=== PATIENT | male | born 1970 | race Caucasian/White ===

== ENCOUNTER 2019-05-03 10:27 | Emergency (ER) | payer MEDICAID, SELFPAY ==
[2019-05-03 10:34] VITALS: BP 121/92; PULSE 75; RESP 16; TEMP 36.7; O2SAT 93; BMI 28.5
--- NOTE | 2019-05-03 10:41 | ED_ITS ---
Entered by Mayo Hunter, acting as scribe for Ck Andres DO HPI - Neuro Symptoms/Deficit General: Chief Complaint: Neuro Symptoms/Deficit Stated Complaint: NUMBNESS LEFT SIDE Time Seen by Provider: 05/03/19 10:44 History of Present Illness: HPI Narrative: 48 yo male presents with left sided weakness. Pt has had this for a couple of days. Pt states that he has blurred vision. Significant other states that she feels like pts speech is a little slurred and raspy. Pt states that he vomited blood 2 days ago, has diarrhea, his nose has bled. Pt states that he has burning in his groin. Pt states that he was working yesterday, he fell due to feeling off balance and his blurred vision. Onset (ago): day(s) (4-5) Location: speech and left leg Severity: moderate Quality: weak and intermittent Relieving factors: none Exacerbating factors: none Associated symptoms: Reports cough, short of breath and weakness; Deny chest pain, malaise, nausea or vomiting Review of Systems Const: Denies: fever, chills, body aches, change in appetite, fatigue or malaise ENMT: Denies: throat pain, ear pain, nasal discharge or nasal congestion Card: Denies: chest pain, edema, shortness of breath on exertion or shortness of breath when lying down Resp: Denies: shortness of breath, productive cough or non-productive cough GI: Denies: abdominal pain, nausea, vomiting, vomiting blood, coffee grounds in vomit, diarrhea, constipation, bloating, blood in stool or black tarry stool : Denies: flank pain, painful urination, urinary frequency or urinary urgency Skin/Breast: Denies: rash or itching [facility] ED PFSH: Medical History (Updated 05/03/19 @ 13:43 by Ck Andres DO) Hypertension Social History Smoking and tobacco status: current every day smoker Physical Exam Const: COMMON NORMALS: average body habitus, oriented x3 and alert GENERAL APPEARANCE: cooperative, comfortable, well kempt and well developed NUTRITIONAL APPEARANCE: not obese ORIENTATION/CONSCIOUSNESS: Yes awake, Yes oriented to person and Yes oriented to place HENMT: COMMON NORMALS: normocephalic, head/scalp atraumatic, EAC's normal, TM's normal bilaterally, external nose normal, moist oral mucous membranes and oropharynx normal HEAD & SCALP: normocephalic and atraumatic NOSE: external nose normal EXTERNAL AUDITORY CANAL: EAC's normal TYMPANIC MEMBRANE: TM's normal bilaterally MOUTH: oral and palatal mucosa normal, lip normal and tongue normal THROAT: posterior oropharynx normal and tonsils normal Eye: COMMON NORMALS: PERRL, EOMs intact bilaterally, conjunctivae normal and no scleral icterus CONJUNCTIVA: Yes conjunctivae normal PUPIL: Yes PERRL Neck/C-Spine: COMMON NORMALS: full ROM, no lymphadenopathy, supple, no meningeal signs and thyroid normal THYROID: thyroid normal and asymmetrical Lymph: LYMPHATIC: no lymphadenopathy noted Resp: COMMON NORMALS: normal respiratory effort, no retractions, no use of accessory muscles and clear to auscultation bilaterally AUSCULTATION: clear to auscultation bilaterally Cardio: COMMON NORMALS: regular rate and regular rhythm RATE: regular rate RHYTHM: regular rhythm HEART SOUNDS: no murmurs GI: COMMON NORMALS: normal to inspection, nondistended, normoactive bowel sounds, soft to palpation and no hepatosplenomegaly PALPATION: Yes soft and Yes no hepatosplenomegaly : COMMON NORMALS: Yes no CVA tenderness BLADDER/KIDNEY EXAM: Yes no CVA tenderness Back/Pelvis: COMMON NORMALS: no CVA tenderness LUMBAR SPINE/LOWER BACK: Yes normal to inspection Extremity: COMMON NORMALS: no clubbing, cyanosis or edema, no calf tenderness and no pedal edema Neuro: COMMON NORMALS: oriented x3 SENSORIUM/ORIENTATION: Yes alert, Yes o riented to person and Yes oriented to place MENINGEAL SIGNS: Yes no meningeal signs Psych: APPEARANCE: Yes well kempt Skin: COMMON NORMALS: no rashes or lesions noted and skin turgor normal GENERAL SKIN EXAM: no rashes or lesions noted and turgor normal Course ED course: Neurologically patient is well there is no focal neurologic deficits he has had this for several days his CT of his head is negative. But going to put him on aspirin regimen baby aspirin daily and recheck with neurology in follow-up. If he has any worsening or changes or recurrent symptoms recheck in the ER. Vital Signs: Vital signs: Vital Signs Temperature 98.1 F 05/03/19 10:34 Pulse Rate 89 05/03/19 14:15 Respiratory Rate 20 H 05/03/19 14:15 Blood Pressure 148/75 05/03/19 14:15 Pulse Oximetry 99 05/03/19 14:15 MDM - Neuro Symptoms/Deficit Lab Data: Labs: Lab Results 05/03/19 05/03/19 05/03/19 Range/Units 10:15 10:15 10:15 WBC 7.7 (4.0-10.0) 10^3/ uL RBC 4.62 (4.1-5.3) 10^6/u L Hgb 14.3 (11.7-16.6) g/dL Hct 40.2 L (42.0-52.0) % MCV 87.0 (80-94) fL MCH 31.0 (28.0-34.0) pg MCHC 35.6 (30.0-36.0) g/dL RDW 13.5 (12.1-15.1) % Plt Count 119 L (130-400) 10^3/c mm MPV 10.9 H (7.4-10.4) fL Neut % (Auto) 67.1 % Lymph % (Auto) 20.5 % Ada % (Auto) 9.4 % Eos % (Auto) 2.3 % Baso % (Auto) 0.4 % Neut # (Auto) 5.1 (1.8-7.7) 10^3/u L Lymph # (Auto) 1.6 (0.8-4.8) 10^3/u L Ada # (Auto) 0.7 (0.2-0.9) 10^3/u L Eos # (Auto) 0.2 (0.0-0.8) 10^3/u L Baso # (Auto) 0.0 (0.0-0.1) 10^3/u L Nucleated RBC % (a uto) 0 % Nucleated RBCs # 0.0 /100WBC Sodium 136 (136-145) mmol/L Potassium 3.4 L (3.5-5.1) mmol/L Chloride 97 L (98-107) mmol/L Carbon Dioxide 23 (22-29) mmol/L Anion Gap 19.4 H (5-19) BUN 18 (6-20) mg/dL Creatinine 1.1 (0.7-1.2) mg/dL GFR Calculation 71.4 L (90-130) mL/min Glucose 120 H (65-115) mg/dL Calcium 9.3 (8.5-10.5) mg/dL Total Bilirubin 0.5 (0.15-1.2) mg/dL AST 82 H (0-40) U/L ALT 97 H (0-41) U/L Alkaline Phosphata se 97 (40-130) IU/L Troponin T Baselin e 12 (0-15) ng/mL Troponin T 120 Min agdaagux (0-15) ng/mL Total Protein 7.5 (6.6-8.7) g/dL Albumin 4.5 (3.5-5.2) g/dL Globulin 3.0 (1.3-4.6) g/dL Lipase 19 (13-60) U/L Urine Color (Yellow) Urine Appearance (CLEAR) Urine pH (5-7) Ur Specific Gravit y (1.005-1.030) Urine Protein (Negative) Urine Glucose (UA) (Normal) Urine Ketones (Negative) Urine Blood (Negative) Urine Nitrate (Negative) Urine Bilirubin (NEGATIVE) Urine Urobilinogen (Negative) mg/dL Ur Leukocyte Eliza ase (Negative) Urine Opiates Scre en (Negative) ng/mL Ur Barbiturates Sc reen (Negative) ng/mL Ur Phencyclidine S crn (Negative) ng/mL Ur Amphetamines Sc reen (Negative) ng/mL U Benzodiazepines Scrn (Negative) ng/mL Urine Cocaine Scre en (Negative) ng/mL U Marijuana (THC) Screen (Negative) ng/mL 05/03/19 05/03/19 05/03/19 Range/Units 11:25 11:25 12:36 WBC (4.0-10.0) 10^3/ uL RBC (4.1-5.3) 10^6/u L Hgb (11.7-16.6) g/dL Hct (42.0-52.0) % MCV (80-94) fL MCH (28.0-34.0) pg MCHC (30.0-36.0) g/dL RDW (12.1-15.1) % Plt Count (130-400) 10^3/c mm MPV (7.4-10.4) fL Neut % (Auto) % Lymph % (Auto) % Ada % (Auto) % Eos % (Auto) % Baso % (Auto) % Neut # (Auto) (1.8-7.7) 10^3/u L Lymph # (Auto) (0.8-4.8) 10^3/u L Ada # (Auto) (0.2-0.9) 10^3/u L Eos # (Auto) (0.0-0.8) 10^3/u L Baso # (Auto) (0.0-0.1) 10^3/u L Nucleated RBC % (a uto) % Nucleated RBCs # /100WBC Sodium (136-145) mmol/L Potassium (3.5-5.1) mmol/L Chloride (98-107) mmol/L Carbon Dioxide (22-29) mmol/L Anion Gap (5-19) BUN (6-20) mg/dL Creatinine (0.7-1.2) mg/dL GFR Calculation (90-130) mL/min Glucose (65-115) mg/dL Calcium (8.5-10.5) mg/dL Total Bilirubin (0.15-1.2) mg/dL AST (0-40) U/L ALT (0-41) U/L Alkaline Phosphata se (40-130) IU/L Troponin T Baselin e (0-15) ng/mL Troponin T 120 Min agdaagux 10.05 (0-15) ng/mL Total Protein (6.6-8.7) g/dL Albumin (3.5-5.2) g/dL Globulin (1.3-4.6) g/dL Lipase (13-60) U/L Urine Color Yellow (Yellow) Urine Appearance Clear (CLEAR) Urine pH 7.0 (5-7) Ur Specific Gravit y 1.010 (1.005-1.030) Urine Protein Neg (Negative) Urine Glucose (UA) Norm (Normal) Urine Ketones Negative (Negative) Urine Blood Neg (Negative) Urine Nitrate Negative (Negative) Urine Bilirubin Neg (NEGATIVE) Urine Urobilinogen Norm (Negative) mg/dL Ur Leukocyte Eliza ase Negative (Negative) Urine Opiates Scre en Negative (Negative) ng/mL Ur Barbiturates Sc reen Negative (Negative) ng/mL Ur Phencyclidine S crn Negative (Negative) ng/mL Ur Amphetamines Sc reen Negative (Negative) ng/mL U Benzodiazepines Scrn Negative (Negative) ng/mL Urine Cocaine Scre en Negative (Negative) ng/mL U Marijuana (THC) Screen Negative (Negative) ng/mL Discharge Plan Discharge Patient Disposition: Home, Self-Care Clinical Impression: Transient cerebral ischemia Condition: Stable Prescriptions: New Adult Aspirin Regimen 81 mg tablet,delayed release (DR/EC) 81 mg PO DAILY Qty: 30 RF: 0 No Action metoprolol succinate 50 mg Tablet Extended Release 24 Hr 50 mg PO DAILY RF: 0 Mobic 15 mg Tablet 15 mg PO DAILY RF: 0 naltrexone 50 mg Tablet 50 mg PO DAILY RF: 0 lisinopril 20 mg Tablet 20 mg PO DAILY RF: 0 trazodone 100 mg Tablet 100 mg PO BEDTIME PRN (Reason: Sleep) RF: 0 ibuprofen 200 mg Tablet 600 mg PO DAILY PRN (Reason: Pain) RF: 0 gabapentin 300 mg Capsule 300 mg PO BID RF: 0 Prozac 20 mg Capsule 60 mg PO DAILY RF: 0 loratadine 10 mg Tablet 10 mg PO DAILY RF: 0 Discharge Orders: Discharge Order (Routine); Ordered 05/03/19 Ordered By: Ck Andres Referrals: Keila Greenwood MD [Physician] - (Follow-up on possible TIA) Discharge Diet: Usual diet Discharge Activity: Resume usual activity Activity Restrictions/Additional Instructions: Case management will call with appointment for follow-up with Dr. Greenwood continue daily baby aspirin. Discharge Date/Time: 05/03/19 14:17 Coding Level of Care Code ED Speech Language Therapist for Chg Fwd Exam Comprehensive The documentation recorded by the Dale caraballo Kialy, accurately reflects the service I personally performed and the decisions made by Mckenna estrada Curtis L, DO May 03, 2019 10:27
[2019-05-03 10:43] VITALS: O2SAT 98
--- NOTE | 2019-05-03 11:05 | CT_ITS ---
WS: [id number] CT HEAD NONCONTRAST HISTORY: vision changes, slurred speech TECHNIQUE: Contiguous axial imaging performed through the brain in 2.5 mm imaging. Bone and soft tiss ue windows. Sagittal and coronal reformats reviewed. All CT scans at [facility] use at le ast one of these dose optimization techniques: automated exposure control; mA and/or kV adjustment pe r patient size (includes targeted exams where dose is matched to clinical indication); or iterative r econstruction. DLP: 865.96 mGy.cm COMPARISON: None available. No acute intracranial hemorrhage, midline shift or mass effect. No atrophy or prior infarcts or herniation. Mild chronic microvascular ischemic disease. No loss of das-white matter differentiation. Ventricles: Normal size with no hydrocephalus. No inferior displacement of the cerebellar tonsils. Paranasal sinuses: Very mild mucoperiosteal thickening throughout the sinuses. Mastoid air cells: Well pneumatized. Calvarium and scalp: Skull fracture. Small amount of scalp edema over the LEFT parietal bone. CT/CT head wo con* [id number] IMPRESSION: 1. No acute intracranial hemorrhage or edema. 2. Small amount scalp edema over the LEFT parietal bone. No fracture. 3. 1 mild chronic sinusitis.
[2019-05-03] MEDS: sodium chloride 0.9% 1,000 ML 999 ML IV (11:19)
[2019-05-03 11:22] LABS: Basophils % 0.4 %; Eosinophils # 0.2 10^3/uL (0.0-0.8); Eosinophils % 2.3 %; Hematocrit 40.2 % (42.0-52.0); Hemoglobin 14.3 g/dL (11.7-16.6); Lymphocytes # 1.6 10^3/uL (0.8-4.8); Lymphocytes % 20.5 %; Mean Corpuscular HGB Conc 35.6 g/dL (30.0-36.0); Mean Platelet Volume 10.9 fL (7.4-10.4); Monocytes # 0.7 10^3/uL (0.2-0.9); Monocytes % 9.4 %; Neutrophils # 5.1 10^3/uL (1.8-7.7); Neutrophils % 67.1 %; Nucleated Red Blood Cells % 0 %; Platelet Count 119 10^3/cmm (130-400); Red Blood Count 4.62 10^6/uL (4.1-5.3); Red Cell Distribution Width 13.5 % (12.1-15.1); White Blood Count 7.7 10^3/uL (4.0-10.0)
[2019-05-03 11:32] LABS: Add Urine Microscopic? NO
[2019-05-03 11:37] LABS: Bilirubin Urine Neg (NEGATIVE); Blood Urine Neg (Negative); Glucose Urine UA Norm (Normal); Ketones Urine Negative (Negative); Leukocyte Esterase Urine Negative (Negative); Nitrate Urine Negative (Negative); Protein Urine Neg (Negative); Urine Appearance Clear (CLEAR); Urine Color Yellow (Yellow); Urobilinogen Urine Norm (Negative)
[2019-05-03 11:40] LABS: Alanine Aminotransferase 97 U/L (0-41); Albumin Level 4.5 g/dL (3.5-5.2); Alkaline Phosphatase 97 IU/L (40-130); Anion Gap 19.4 (5-19); Aspartate Amino Transferase 82 U/L (0-40); Blood Urea Nitrogen 18 mg/dL (6-20); Calcium 9.3 mg/dL (8.5-10.5); Carbon Dioxide 23 mmol/L (22-29); Chloride 97 mmol/L (98-107); Creatinine Clr Calc Pharmacy 98.3443; Glomerular Filtration Rate 71.4 mL/min (90-130); Glucose 120 mg/dL (65-115); Lipase 19 U/L (13-60); Potassium 3.4 mmol/L (3.5-5.1); Sodium 136 mmol/L (136-145); Total Bilirubin 0.5 mg/dL (0.15-1.2); Total Protein 7.5 g/dL (6.6-8.7)
--- NOTE | 2019-05-03 12:38 | ECG_ITS ---
Measurements Intervals [place] Rate: 68 P: 49 AL: 163 QRS: 43 QRSD: 92 T: 42 QT: 423 QTc: 452 SINUS RHYTHM Compared to ECG 09/06/2018 17:07:09 No significant changes Electronically Signed On 05-03-2019 15:18:39 PRODUCE PRODUCTION TEAM MEMBER by Amanuel Montaño M.D. [email or web address]
[2019-05-03 13:20] LABS: Troponin 5 2HR 10.05 ng/mL (0-15)
[2019-05-03 13:20] LABS: Troponin(5th) Baseline 12 ng/mL (0-15)
[2019-05-03 13:36] LABS: Amphetamines Screen Urine Negative (Negative); Barbiturates Screen Urine Negative (Negative); Benzodiazepines Screen Urine Negative (Negative); Cocaine Screen Urine Negative (Negative); Opiate Screen Urine Negative (Negative); PCP Screen Urine Negative (Negative); THC Screen Urine Negative (Negative)
[2019-05-03 14:15] VITALS: BP 148/75; PULSE 89; RESP 20; O2SAT 99
--- NOTE | 2019-05-05 09:20 | DCPLANNER ---
district service manager had message to schedule a follow up appointment for patient with Dr. Greenwood. district service manager called the office of Dr. Greenwood, spoke with Charleen, a follow up appointment was scheduled for Wednesday, May 08, 2019 at 11:[address] Greenwood. district service manager called [phone] and left a voicemail for patient to return case specialist phone call, then protective services case worker called [phone] and left a message with a friend to have patient return case specialist phone call for appointment information.
--- NOTE | 2019-05-09 14:58 | DCPLANNER ---
Appointment was rescheduled.
== END 2019-05-03 14:17 | disposition home or self-care (01) ==
PROVIDERS: Emergency Provider Family Medicine; Family Provider Family Medicine; PCP Family Medicine
DX: G45.9 Transient cerebral ischemic attack, unspecified (principal); I10 Essential (primary) hypertension; F17.200 Nicotine dependence, unspecified, uncomplicated
CPT/HCPCS: 36415; 70450; 80053; 80307; 81003; 83690; 84484; 85025; 93005; 96360; 99283; 99284; J7030

== ENCOUNTER → 2019-06-26 10:12 | Outpatient (BNVA) | payer MEDICAID, SELFPAY | PROVIDERS: Family Provider Family Medicine; PCP Family Medicine; Visit Provider Family Medicine | DX: J44.9 Chronic obstructive pulmonary disease, unspecified (principal) | CPT/HCPCS: 80053; 80061; 83036; 85025 ==

== ENCOUNTER 2020-09-05 06:13 | Emergency (ER) | payer MEDICAID, SELFPAY ==
[2020-09-05 07:40] VITALS: BP 148/98; PULSE 76; RESP 16; TEMP 36.3; O2SAT 93; BMI 26.4
[2020-09-05 07:46] VITALS: O2SAT 94
--- NOTE | 2020-09-05 07:52 | ED_ITS ---
HPI - Recheck/Abnormal Lab/Rx General: Chief Complaint: Recheck/Abnormal Lab/Rx Stated Complaint: sores all over Source: patient Mode of arrival: ambulatory Limitations: no limitations History of Present Illness: HPI narrative: Patient back today for antibiotics that he did not receive yesterday when seen in the emergency room for the same complaint. Patient has sores to his hands and leg. complaint: wound re-check Initial visit (ago): day(s) (Several) Initial visit for: other (Ulcers to hands and right leg) Returns today for: wound recheck Symptoms since prior visit: no new symptoms Associated symptoms: none Review of Systems Const: Denies: fever(s) or chills Eyes: Denies: change in vision ENMT: Denies: throat pain Card: Denies: chest pain or palpitations Resp: Denies: dyspnea or wheezing GI: Denies: abdominal pain, nausea or vomiting : Denies: flank pain Musc: Denies: neck pain or back pain Skin/Breast: Reports: rash and sores; Denies: pruritus Neuro: Denies: headache(s) or numbness in extremities Psych: Denies: anxiety Jagdish/Lymph: Denies: enlarged lymph nodes PFSH ED PFSH: Medical History LEANDRO (generalized anxiety disorder) History of alcoholism Hypertension Insomnia Problems related to lack of adequate sleep Seasonal allergies Surgical History H/O hernia repair Family History Family/Other Hypertension Mother Muscular dystrophy Father Myocardial infarct Social History Smoking and tobacco status: current every day smoker cigarettes Packs smoked per day: 1 Quit status (tobacco): not considering quitting Second hand smoke exposure: Yes Alcohol intake: current Alcohol intake frequency: 3 or more drinks per day Desire information about substance/drug rehabilitation?: No Caregiver/support person: Yes Lives independently: No Household members: spouse History of recent travel: No Current gender identity: Male Physical Exam Const: COMMON NORMALS: no acute distress, patient oriented x3, no limitations and well nourished GENERAL APPEARANCE: cooperative HENMT: COMMON NORMALS: normocephalic and atraumatic HEAD & SCALP: normocephalic and atraumatic FACE & SINUS: normal facial exam Eye: COMMON NORMALS: EOMs intact bilaterally Neck/C-Spine: COMMON NORMALS: full ROM, no lymphadenopathy, supple and no meningeal signs GENERAL: Yes normal visual inspection Lymph: LYMPHATIC: no lymphadenopathy noted Chest: COMMONS NORMALS: normal inspection of the chest and normal palpation of entire chest wall CHEST: No Ecchymosis present and No rash Resp: COMMON NORMALS: normal respiratory effort, No retractions and clear to auscultation bilaterally EFFORT & INSPECTION: No respiratory distress AUSCULTATION: clear to auscultation bilaterally Cardio: COMMON NORMALS: regular rate, regular rhythm and Peripheral pulses 2+ throughout JUGULAR VENOUS DISTENTION: no JVD RATE: regular rate RHYTHM: regular rhythm PERIPHERAL PULSES: Peripheral pulses 2+ throughout GI: COMMON NORMALS: Normal to inspection, nondistended, normoactive bowel sounds present and non-tender : COMMON NORMALS: Yes no CVA tenderness BLADDER/KIDNEY EXAM: Yes no CVA tenderness Back/Pelvis: COMMON NORMALS: no CVA tenderness Extremity: COMMON NORMALS: normal to inspection, full ROM and capillary refill normal Neuro: COMMON NORMALS: patient oriented x3, CN's II-XII intact bilaterally, no focal motor deficits and no sensory deficits noted MENINGEAL SIGNS: Yes no meningeal signs Psych: COMMON NORMALS: mental status grossly normal and Normal thought process present THOUGHT PROCESS: Normal thought process present Skin: COMMON NORMALS: turgor normal GENERAL SKIN EXAM: turgor normal and other (Patient has multiple superficial ulcers to both hands and right lower leg ) Course Vital Signs: Vital signs: Vital Signs Temperature 97.3 F L 09/05/20 07:40 Pulse Rate 76 09/05/20 07:40 Respiratory Rate 16 09/05/20 07:40 Blood Pressure 148/98 09/05/20 07:40 Pulse Oximetry 94 09/05/20 07:46 MDM - Recheck/Abnormal Lab/Rx MDM Narrative: Medical decision making narrative: Patient left yesterday prior to receiving antibiotic injection and receiving prescriptions for folliculitis. Patient is agreeable to antibiotic injection now. Discharge Plan Discharge Patient Disposition: Home Clinical Impression: Folliculitis Condition: Stable Prescriptions: New cephalexin 500 mg capsule 500 mg PO QID 10 Days Qty: 40 RF: 0 Bactrim DS 800-160 mg tablet 1 tab PO BID 10 Days Qty: 20 RF: 0 No Action lisinopril 20 mg tablet 20 mg PO DAILY 30 Days Qty: 30 RF: 5 metoprolol succinate 50 mg tablet extended release 24 hr 50 mg PO DAILY 30 Days Qty: 30 RF: 5 loratadine 10 mg tablet 10 mg PO DAILY 30 Days Qty: 30 RF: 5 diclofenac sodium 50 mg tablet,delayed release (DR/EC) 50 mg PO Q12H PRN (Reason: pain) 30 Days Qty: 60 RF: 5 fluoxetine 40 mg capsule 40 mg PO DAILY 30 Days Qty: 30 RF: 5 mirtazapine 15 mg tablet 15 mg PO .qhs 30 Days Qty: 30 RF: 3 Adult Aspirin Regimen 81 mg tablet,delayed release (DR/EC) 81 mg PO DAILY Qty: 30 RF: 0 cephalexin 500 mg capsule 500 mg PO QID 10 Days Qty: 40 RF: 0 mupirocin 2 % ointment 1 applic topical TID 14 Days Qty: 15 RF: 1 Discharge Orders: Discharge ED (Routine); Ordered 09/05/20 Ordered By: Richardson Summers Discharge Activity: Resume usual activity Activity Restrictions/Additional Instructions: Start Bactrim and cephalexin antibiotics tomorrow morning. Follow-up with primary care doctor next week. Coding Level of Care Code ED Developer Architect for Jia Farley
[2020-09-05] MEDS: cefTRIAXone 1,000 mg SDV 1000 MG IM (08:15)
== END 2020-09-05 08:19 | disposition home or self-care (01) ==
PROVIDERS: Emergency Provider Family Medicine
DX: L73.9 Follicular disorder, unspecified (principal); Z79.82 Long term (current) use of aspirin; I10 Essential (primary) hypertension; F17.210 Nicotine dependence, cigarettes, uncomplicated
CPT/HCPCS: 96372; 99283; J0696

== ENCOUNTER → 2020-12-19 11:27 | Outpatient (BNVA) | payer MEDICAID, SELFPAY | PROVIDERS: PCP Family Medicine; Visit Provider Family Medicine | DX: I10 Essential (primary) hypertension (principal); J30.2 Other seasonal allergic rhinitis; M17.11 Unilateral primary osteoarthritis, right knee; Z13.220 Encounter for screening for lipoid disorders; Z13.6 Encounter for screening for cardiovascular disorders; Z23 Encounter for immunization; H65.191 Other acute nonsuppurative otitis media, right ear | CPT/HCPCS: 80053; 80061 ==

== ENCOUNTER 2021-06-28 14:49 | Inpatient (IN) | payer MEDICAID, SELFPAY ==
[2021-06-28 14:59] VITALS: BP 167/97; PULSE 97; RESP 17; O2SAT 95
--- NOTE | 2021-06-28 15:00 | ED_ITS ---
HPI - General Adult General: Chief complaint: General Medical Stated complaint: ETOH/ HYPERTENSION Time Seen by Provider: 06/28/21 14:52 Source: patient Mode of arrival: EMS Limitations: altered mental status (Chronic intoxication) History of Present Illness: 51-year-old male who presents emergency room via EMS concerned about his blood pressure. He has been drinking for the last week. He has not been taking any of his medications blood pressure is elevated he is not suicidal or homicidal. Patient readily admits he drinks heavily and expresses no desire to change that plan. He states has been drinking beer almost continually for a week. He had told the charge nurse that he wanted be admitted to the [facility] because of his drinking he did not make any such a comment to me. He is merely concerned with his blood pressure and fascinated by how high his blood alcohol might be requesting several times that we check it so he would know. Patient denies any chest pain denies any shortness of breath. He has had difficulty with vision to gait and balance 50 attributes most of that to his blood pressure and rigorous drinking schedule. MD complaint: Chronic intoxication Onset (ago): week(s) Location: head Severity: similar to prior episodes Quality: aching Pain Consistency: intermittent Relieving factors: none Exacerbating factors: other (Alcohol consumption) Associated symptoms: Reports confusion (Due to intoxication), decreased appetit e, headache(s), malaise, nausea and weakness; Deny chest pain, cough, diaphoresis, dyspnea, fevers/chills, rash, palpitations, seizures, short of breath, syncope or vomiting Treatments prior to arrival: none Review of Systems Const: Reports: fatigue and malaise; Denies: fever(s), chills or diaphoresis ENMT: Denies: throat pain, ear or mastoid pain, nasal discharge or nasal congestion Card: Denies: chest pain, palpitations or syncope Resp: Denies: dyspnea GI: Reports: nausea; Denies: vomiting : Denies: flank pain, dysuria, urinary frequency or urinary urgency Skin/Breast: Denies: rash Neuro: Reports: headache(s) and confusion (Due to intoxication) [facility] ED PFSH: Medical History LEANDRO (generalized anxiety disorder) History of alcoholism Hypertension Insomnia Problems related to lack of adequate sleep Psychiatric care Seasonal allergies Surgical History H/O hernia repair Family History Family/Other Hypertension Mother Muscular dystrophy Father Myocardial infarct Social History Smoking and tobacco status: current every day smoker cigarettes Packs smoked per day: 1 Quit status (tobacco): not considering quitting Second hand smoke exposure: Yes Alcohol intake: current Alcohol intake frequency: 3 or more drinks per day Desire information about substance/drug rehabilitation?: No Caregiver/support person: Yes Lives independently: No Household members: spouse History of recent travel: No Current gender identity: Male Physical Exam Const: GENERAL APPEARANCE: disheveled and other (Obviously intoxicated) ORIENTATION/CONSCIOUSNESS: Yes awake, Yes oriented to person, Yes oriented to place and Yes oriented to time HENMT: COMMON NORMALS: normocephalic, atraumatic and hearing grossly normal bilaterally HEAD & SCALP: normocephalic and atraumatic Neck/C-Spine: COMMON NORMALS: no JVD Resp: COMMON NORMALS: normal respiratory effort, No retractions, No use of accessory muscles and clear to auscultation bilaterally AUSCULTATION: clear to auscultation bilaterally Cardio: COMMON NORMALS: no JVD, regular rate, regular rhythm and No murmurs present (Cardio) RATE: regular rate RHYTHM: regular rhythm GI: COMMON NORMALS: Soft to palpation and No hepatosplenomegaly present AUSCULTATION: Yes normoactive bowel sounds PALPATION: Yes Soft to palpation, No Tenderness to palpation present (GI), No Guarding due to palpation present (GI) and Yes No hepatosplenomegaly present Extremity: COMMON NORMALS: normal to inspection, capillary refill normal, no clubbing, cyanosis or edema, no calf tenderness and no pedal edema Neuro: SENSORIUM/ORIENTATION: Yes oriented to person, Yes oriented to place and Yes oriented to time Skin: COMMON NORMALS: no rashes or lesions noted GENERAL SKIN EXAM: no rashes or lesions noted Course Vital Signs: Vital signs: Vital Signs Temperature 97.5 F L 07/01/21 07:37 Pulse Rate 61 07/01/21 07:37 Respiratory Rate 18 07/01/21 07:37 Blood Pressure 177/108 07/01/21 07:37 Pulse Oximetry 98 07/01/21 07:37 MDM - General Adult Medical Decision Making Patient was going to be discharged and at the time of discharge stated that he was suicidal. Now he is wanting to go to the [facility] because of suicidal ideation. Discussed with Dr. Granados he will accept the patient orders written. Medical Records I reviewed the patient's medical records. Lab Data I reviewed the patient's lab results. : 06/28/21 15:28 06/29/21 07:08 Laboratory Results WBC 4.8 10^3/uL (4.0-10.0) 06/28/21 15: RBC 4.76 10^6/uL (4.1-5.3) 06/28/21 15: Hgb 15.1 g/dL (11.7-16.6) 06/28/21 15: Hct 42.6 % (42.0-52.0) 06/28/21 15: MCV 89.5 fl (80-94) 06/28/21 15: MCH 31.7 pg (28.0-34.0) 06/28/21 15: MCHC 35.4 g/dL (30.0-36.0) 06/28/21 15: RDW 13.0 % (12.1-15.1) 06/28/21 15:28 Plt Count 196 10^3/cmm (130-400) 06/28/21 15:28 MPV 9.7 fL (7.4-10.4) 06/28/21 15: Neut % (Auto) 55.8 % 06/28/21 15:28 Lymph % (Auto) 31.2 % 06/28/21 15:28 [place] % (Auto) 10.5 % 06/28/21: Eos % (Auto) 0.6 % 06/28/21 15: Baso % (Auto) 1.7 % 06/28/21 15:28 Neut # (Auto) 2.67 10^3/uL (1.8-7.7) 06/28/21 15:28 Lymph # (Auto) 1.5 10^3/uL (0.8-4.8) 06/28/21 15:28 [place] # (Auto) 0.5 10^3/uL (0.2-0.9) 06/28/21 15: Eos # (Auto) 0.0 10^3/uL (0.0-0.8) 06/28/21 15: Baso # (Auto) 0.1 10^3/uL (0.0-0.1) 06/28/21 15: Nucleated RBC % (auto) 0 % 06/28/21 15: Nucleated RBCs # 0.0 /100WBC 06/28/21 15: Sodium 125 mmol/L (136-145) L 06/28/21 15: Potassium 3.9 mmol/L (3.5-5.1) 06/28/21: Chloride 86 mmol/L (98-107) L 06/28/21 15: Carbon Dioxide 22 mmol/L (22-29) 06/28/21 15: Anion Gap 20.9 (5-19) H 06/28/21 15: BUN 6 mg/dL (6-20) 06/28/21 15: Creatinine 0.6 mg/dL (0.7-1.2) L 06/28/21 15: GFR Calculation 142.0 mL/min (90-130) H 06/28/21 15: Glucose 100 mg/dL (65-115) 06/28/21 15: Calculated Osmolality 258 mOsm/kg (285-295) L 06/28/21: Calcium 7.8 mg/dL (8.5-10.5) L 06/28/21 15: Total Bilirubin 0.4 mg/dL (0.15-1.2) 06/28/21 15: Direct Bilirubin 0.20 mg/dL (0.00-0.30) 06/28/21 15: AST 91 U/L (0-40) H 06/28/21 15: ALT 59 U/L (0-41) H 06/28/21 15: Alkaline Phosphatase 70 IU/L (40-130) 06/28/21 15: Total Protein 7.0 g/dL (6.6-8.7) 06/28/21 15: Albumin 4.7 g/dL (3.5-5.2) 06/28/21 15:28 Globulin 2.3 g/dL (1.3-4.6) 06/28/21 15:28 Salicylates < 0.3 mg/dL (3-10) L 06/28/21 15:28 Acetaminophen < 5.0 ug/mL (10-30) L 06/28/21 15:28 Ethyl Alcohol 285 mg/dL (0-10) H 06/28/21 15:28 Discharge Plan Discharge Patient Disposition: Admitted As Inpatient Admit Provider: Hari Granados Clinical Impression: Suicidal ideation, Alcohol use disorder, severe, dependence, Hypertension Condition: Stable Discharge Diet: Regular Discharge Activity: Resume usual activity Coding Level of Care Code ED Truck Service Manager for Jia Fwd Exam Comprehensive
--- NOTE | 2021-06-28 15:00 | ECG_ITS ---
[facility] Test Date: 2021-06-28 Pat Name: Ed Sahu Department: Room: Gender: Male Hospice Clinical Manager: : 1970 Requested By: Ck Alexander Order Number: [id number] Honey MD: Rene Jones M.D. Measurements Intervals [place] Rate: 73 P: 54 MS: 169 QRS: 33 QRSD: 91 T: 38 QT: 392 QTc: 432 Interpretive Statements SINUS RHYTHM Compared to ECG 05/03/2019 11:55:26 No significant changes Electronically Signed On 06-29-2021 19:30:06 CDT by Rene Jones M.D. [id number]
[2021-06-28] MEDS: metoprolol succinate ER (24 HR) 50 mg Tablet PO (15:46)
[2021-06-28] MEDS: famotidine 20 mg/2 mL INJ 40 MG IVP (15:47)
[2021-06-28] MEDS: sodium chloride 0.9% 500 ML 999 ML IV (15:47)
[2021-06-28] MEDS: lisinopril 20 mg Tablet PO (15:47)
[2021-06-28] MEDS: metoprolol tartrate 1 mg/1 mL SDV 5 mL 2.5 MG IVP (15:57)
[2021-06-28] MEDS: ondansetron 2 mg/ML SDV 2 mL 4 MG IVP (15:57)
[2021-06-28 15:58] VITALS: BP 155/123; RESP 20; O2SAT 96
[2021-06-28 16:06] LABS: Basophils # 0.1 10^3/uL (0.0-0.1); Basophils % 1.7 %; Eosinophils % 0.6 %; Hematocrit 42.6 % (42.0-52.0); Hemoglobin 15.1 g/dL (11.7-16.6); Lymphocytes # 1.5 10^3/uL (0.8-4.8); Lymphocytes % 31.2 %; Mean Corpuscular HGB Conc 35.4 g/dL (30.0-36.0); Mean Corpuscular Hemoglobin 31.7 pg (28.0-34.0); Mean Corpuscular Volume 89.5 fl (80-94); Mean Platelet Volume 9.7 fL (7.4-10.4); Monocytes # 0.5 10^3/uL (0.2-0.9); Monocytes % 10.5 %; Neutrophils # 2.67 10^3/uL (1.8-7.7); Neutrophils % 55.8 %; Nucleated Red Blood Cells % 0 %; Platelet Count 196 10^3/cmm (130-400); Red Blood Count 4.76 10^6/uL (4.1-5.3); White Blood Count 4.8 10^3/uL (4.0-10.0)
[2021-06-28 16:17] LABS: Alcohol Level 285 mg/dL (0-10); Anion Gap 20.9 (5-19); Blood Urea Nitrogen 6 mg/dL (6-20); Calcium 7.8 mg/dL (8.5-10.5); Carbon Dioxide 22 mmol/L (22-29); Chloride 86 mmol/L (98-107); Glucose 100 mg/dL (65-115); Osmolality Calculated 258 mOsm/kg (285-295); Potassium 3.9 mmol/L (3.5-5.1); Sodium 125 mmol/L (136-145)
[2021-06-28 16:32] VITALS: BP 156/100
[2021-06-28 16:36] LABS: Acetaminophen < 5.0 ug/mL (10-30); Salicylate < 0.3 mg/dL (3-10)
[2021-06-28 17:04] LABS: Alanine Aminotransferase 59 U/L (0-41); Albumin Level 4.7 g/dL (3.5-5.2); Alkaline Phosphatase 70 IU/L (40-130); Aspartate Amino Transferase 91 U/L (0-40); Globulin 2.3 g/dL (1.3-4.6); Total Bilirubin 0.4 mg/dL (0.15-1.2)
[2021-06-28 19:22] VITALS: BP 113/67; PULSE 75; RESP 20; O2SAT 92
[2021-06-28 20:39] VITALS: BP 135/58; PULSE 78; RESP 18; TEMP 36.8; O2SAT 94
[2021-06-28] MEDS: fluticasone nasal spray 16gm Btl 1 SPRAY INTRANASAL (21:02)
[2021-06-28] MEDS: mirtazapine 15 mg Tablet PO (21:02)
[2021-06-28 21:43] VITALS: BP 135/58; PULSE 78; RESP 18; TEMP 36.8; O2SAT 94
[2021-06-29] MEDS: OLANZapine 5 mg ODT PO (00:50)
--- NOTE | 2021-06-29 02:13 | PC.NURSE ---
0050 Patient woke himself up coughing. He reports perspiring and a little bit of anxiety. Zyprexa 5 mg given as he did not score but a 4 on his CIWA. Med effective as the patient is resting quietly.
--- NOTE | 2021-06-29 02:18 | PC.ADMIT ---
Admission Note:51-year-old male who presents emergency room via EMS concerned about his blood pressure. He has been drinking for the last week. He has not been taking any of his medications blood pressure is elevated he is not suicidal or homicidal. Patient readily admits he drinks heavily and expresses no desire to change that plan. He states has been drinking beer almost continually for a week. He had told the charge nurse that he wanted be admitted to the [facility] because of his drinking he did not make any such a comment to me. He is merely concerned with his blood pressure and fascinated by how high his blood alcohol might be requesting several times that we check it so he would know. Patient denies any chest pain denies any shortness of breath. He has had difficulty with vision to gait and balance 50 attributes most of that to his blood pressure and rigorous drinking schedule. MD complaint: Chronic intoxication Patient on unit very intoxicated and unable to give history. He just states that he has been drinking heavily for two weeks. He smelled heavily of alcohol. The patient,Ed Sahu,51 y/o, was given written information regarding hospital policies, unit procedures and contact persons. Patient's smoking status: current every day smoker. Vital Signs - 8 hr 06/28/21 19:22 06/28/21 20:39 06/28/21 21:43 Temperature 98.3 F 98.3 F Pulse Rate 75 78 78 Respiratory Rate 20 H 18 18 Blood Pressure 113/67 135/58 135/58 Pulse Oximetry 92 94 94
[2021-06-29 05:55] VITALS: BP 139/93; PULSE 90; RESP 17; TEMP 36.9; O2SAT 94
--- NOTE | 2021-06-29 08:15 | P.NPUHP_ITS ---
Providers/Chief Complaint Admitting Physician: Hari Granados MD Primary Care Provider: Oliva Granados MD Chief Complaint: ETOH/ HYPERTENSION HPI NPU History of Present Illness Ed Sahu is a 51 year old male who presented to the emergency department with the following report: Chief complaint: General Medical Stated complaint: ETOH/ HYPERTENSION Time Seen by Provider: 06/28/21 14:52 Source: patient Mode of arrival: EMS Limitations: altered mental status (Chronic intoxication) History of Present Illness: 51-year-old male who presents emergency room via EMS concerned about his blood pressure. He has been drinking for the last week. He has not been taking any of his medications blood pressure is elevated he is not suicidal or homicidal. Patient readily admits he drinks heavily and expresses no desire to change that plan. He states has been drinking beer almost continually for a week. He had told the charge nurse that he wanted be a dmitted to the MPU because of his drinking he did not make any such a comment to me. He is merely concerned with his blood pressure and fascinated by how high his blood alcohol might be requesting several times that we check it so he would know. Patient denies any chest pain denies any shortness of breath. He has had difficulty with vision to gait and balance 50 attributes most of that to his b lood pressure and rigorous drinking schedule. complaint: Chronic intoxication Onset (ago): week(s) Location: head Severity: similar to prior episodes Quality: aching Pain Consistency: intermittent Relieving factors: none Exacerbating factors: other (Alcohol consumption) Associated symptoms: Reports confusion (Due to intoxication), decreased appetite, headache(s), malaise, nausea and weakness; Deny chest pain, cough, diaphoresis, dyspnea, fevers/chills, rash, palpitations, seizures, short of breath, syncope or vomiting Treatments prior to arrival: none. He was admitted to the neuropsychiatric unit for definitive treatment of those issues. He reports that he was psychiatrically hospitalized one time in the past, he believes, here at the neuropsychiatric unit. View of his records show 2 inpatient hospitalizations, one in 2010 and one in 2018 wherein he was seen by this global technical writer. We reviewed the last note as he had no substance changes at this time. An excerpt is included below for context. He reports that he is not on any medication at this time. He reports smoking about a pack of cigarettes a day, reports drinking every day or every other day 12 to 14 beers, denies marijuana or any other illicit drug use. He reports that he has never been to a rehab and that he had a DUI back 20 years ago maybe. He presents today reporting that his drinking got himself out of control and that him and his neighbor had a little run in and he had been drinking significantly. At first he said that he had gone past the train tracks and there was a misunderstanding about what was said but later he endorses that he had made some comment but that he was not sober. He denies any history of suicide attempts or self-injurious behaviors but he does report that he has suicidal thoughts. He reports that his drinking has gotten out of control very recently and he reports that he got out of senior care not too long ago. 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 We discussed the risks, benefits and alternatives of making some calls to get some collateral information given he is on a 96 hour hold and that we don?t discharge the moment we meet them without collaborative in formation and he understood and agreed to proceed as is documented in this note. He reports that currently he lives in the house sometimes with his ex and sometimes in multiple situations because they reportedly have 5 different places in their area. He denies other than the school for the CDL there haven?t been many changes recently, other than another 2 years he spent in senior care. He reports his legal history is extensive, that he has had at least 2 seven year bids that he has served and a couple 2 year bids but he reports that his /ex- has stuck with him and they continue to be partners of sorts. He denied any interest in starting any medications or making any changes and continued to focus on wanting to go. We agreed that we would need to get collateral information for that to happen. Psychiatric History: As above. Substance Abuse History: As above Per his 09/07/2018 [facility] inpatient psychiatric evaluation: Date of Service: Sep 07, 2018 Chief Complaint: Obsessive drinkin'. HPI: HPI: The patient is a 48-year-old male admitted on a 96 hour hold brought in by police/EMS for aggressive ideation while intoxicated with alcohol.? Affidavit reviewed on the chart indicates that the patient's made statements about fist fighting. ? Initial alcohol level was 339 and drug screen was negative.? Since admission the patient has been significantly hypertensive and tachycardic at [facility].? He has received 9 mg of Ativan per alcohol withdrawal as well as clonidine 0.1 mg since admission overnight.? Patient reports that he has been drinking 12 beers daily X2 weeks and was 2 weeks sober prior.? I got a little carried away yesterday. ? The patient reports somebody called for a well-being check. I'm not a physical harm but they's worried about my blood pressure strokin' me out. ? The patient reports that he tends to have significant irritability when he does not drink and agrees that he may benefit from a mood stabilizer.? He also reports that he would like to try and alcohol cessation agent. Psychiatric review of systems: Patient reports problems with chronic irritabil ity at baseline and severe irritability while intoxicated/ aggressive ideation last night while intoxicated.? Patient reports that his mood for the last 2 weeks has been fair .? I wouldn't say I'm depressed. ? He denies anhedonia.? Denies suicidal ideation.? Denies hallucinations or paranoia.? Denies homicidal ideation.? Does report tremulousness and palpitations. Past psychiatric history: No psychiatrist.? Patient has a prior history of psychiatric admission to the [facility] in 2010 for alcohol intoxication [place] on a 96 hour hold. 2+ admissions to [facility]. ? Denies hx SA.? Past meds:? alcohol cessation agent/ Campral. Past medical history: HTN, left arm injury with torn ligament and left ear (reattached).? Was supposed to have inguinal hernia repair yesterday but didn't go.? Denies hx seizures. Family history: mental illness and alcoholism Social history: , no children, ex- is supportive, unemployed and filing for disability.? Dropped out 11th grade with hx LD/literacy problems.? Legal- denies.? Patient has a history of alcohol use since 13 years old.? Denies illicit drugs/ tobacco. Meds NPU Home Medications Medication Instructions Recorded Confirmed Last Taken Type aspirin 81 mg tablet,delayed 81 mg PO DAILY #30 tab 05/03/19 06/28/21 06/27/21 Rx release (Adult Aspirin Regimen) diclofenac sodium 50 mg 50 mg PO Q12H PRN 30 Days #60 tab 12/19/20 06/28/21 Unknown Rx tablet,delayed release fluticasone propionate 50 1 spray INTRANASAL Q12H #15.8 ml 12/19/20 06/28/21 Unknown Rx mcg/actuation nasal spray,suspension lisinopril 20 mg tablet 20 mg PO DAILY 30 Days #30 tab 12/19/20 06/28/21 06/27/21 Rx metoprolol succinate 50 mg 50 mg PO DAILY 30 Days #30 tab 12/19/20 06/28/21 06/27/21 Rx tablet,extended release 24 hr fluoxetine 40 mg capsule 40 mg PO DAILY 30 Days #30 cap 03/26/21 06/28/21 06/27/21 Rx loratadine 10 mg tablet 10 mg PO DAILY 90 Days #90 tab 04/18/21 06/28/21 06/27/21 Rx mirtazapine 15 mg tablet 15 mg PO BEDTIME 06/28/21 06/28/21 06/27/21 History Allergies Allergy/AdvReac Type Severity Reaction Status Date / Time acetaminophen [From [facility]] Allergy Unknown ALGY-Rash Verified 03/26/21 11:31 hydrocodone [From [facility]] Allergy Unknown ALGY-Rash Verified 03/26/21 11:31 Penicillins Allergy ALGY-Swell Verified 03/26/21 11:31 Lip/Tongue/Throat PFSH NPU PFSH: Medical History LEANDRO (generalized anxiety disorder) History of alcoholism Hypertension Insomnia Problems related to lack of adequate sleep Psychiatric care Seasonal allergies Surgical History H/O hernia repair Family History Family/Other Hypertension Mother Muscular dystrophy Father Myocardial infarct Social History Smoking and tobacco status: current every day smoker cigarettes Packs smoked per day: 1 Quit status (tobacco): not considering quitting Second hand smoke exposure: Yes Alcohol intake: current Alcohol intake frequency: 3 or more drinks per day Desire information about substance/drug rehabilitation?: No Caregiver/support person: Yes Lives independently: No Household members: spouse History of recent travel: No Current gender identity: Male Mental Status Exam MSE Comments: This is an overweight white male in hospital scrubs with adequate grooming and eye contact. Absent dentition. No abnormal movements. Cooperative with exam in no acute distress. Speech was normal rate and volume. Mood described as better, affect euthymic. Thought process, organized. Thought content: patient denies any suicidal or homicidal ideation, no delusions repo rted or noted, and denies any auditory or visual hallucinations. Attention and concentration are intact and memory is reliable but none were formally tested. He is alert and oriented three times. Insight and judgment are fair. Impulse control is limited. Vitals/I&O/Wt Last Vital Signs Temp 98.4 F 06/29/21 05:55 Pulse 90 06/29/21 05:55 Resp 17 06/29/21 05:55 BP 139/93 06/29/21 05:55 Pulse Ox 94 06/29/21 05:55 Data NPU : 06/28/21 15:28 06/29/21 07:08 A&P Assessment and plan (1) Alcohol use disorder, severe, dependence: Status: Acute (2) Suicidal ideation: Status: Acute (3) Adjustment disorder with mixed disturbance of emotions and conduct: Status: Acute Plan This is a 51 year old white male with a long history of depression, anxiety, alcohol dependance, and frequent legal problems who presents, as he has in the past, intoxicated but now on a 96 hour hold secondary to suicidal statements, but not wanting any medication started. 1. Continue current medications 2. Encourage individual, group and milieu therapy 3. Continue q-15 minute check for safety 4. Recommend sober living treatment at the highest level of care to which the patient is willing to commit. 5. We will evaluate him on the basis of the 96-hour hold for safety for discharge. Involuntary Hold Information 96 Hour Hold: 96 Hour Involuntary Admission: Yes 96 Hour Hold Ending Date: 07/04/21 96 Hour Hold Ending Time: 12:01 Attestations NPU Medical Necessity Statement*: Inpatient hospitalization is medically necessary and the clinically appropriate intervention at this time. We will monitor medications and make changes as indicated. Patient will be in the hospital for over two midnights. Likely length of stay is two to four days. Coding Level of Care Code Acute Principal Architect for g Fwd Diagnoses Alcohol use disorder, severe, dependence F10.20 Suicidal ideation R45.851 Adjustment disorder with mixed disturbance of emotions and conduct F43.25
[2021-06-29 08:22] LABS: Anion Gap 18.3 (5-19); Blood Urea Nitrogen 8 mg/dL (6-20); Calcium 8.8 mg/dL (8.5-10.5); Carbon Dioxide 22 mmol/L (22-29); Chloride 91 mmol/L (98-107); Glomerular Filtration Rate 118.9 mL/min (90-130); Glucose 79 mg/dL (65-115); Osmolality Calculated 261 mOsm/kg (285-295); Potassium 4.3 mmol/L (3.5-5.1); Sodium 127 mmol/L (136-145)
[2021-06-29] MEDS: multivitamin therapeutic Tablet 1 TAB PO (08:34)
[2021-06-29] MEDS: fluoxetine 20 mg Capsule 40 MG PO (08:34)
[2021-06-29] MEDS: thiamine 100 mg Tablet PO (08:34)
[2021-06-29] MEDS: loratadine 10 mg Tablet PO (08:35)
[2021-06-29] MEDS: lisinopril 20 mg Tablet PO (08:35)
[2021-06-29] MEDS: folic acid 1 mg Tablet PO (08:35)
[2021-06-29] MEDS: metoprolol succinate ER (24 HR) 50 mg Tablet PO (08:35)
[2021-06-29] MEDS: aspirin 81 mg EC Tablet PO (08:35)
[2021-06-29] MEDS: nicotine 21 mg Patch 1 PATCH TRANSDERMA (08:36)
[2021-06-29 14:00] VITALS: BP 135/88; PULSE 91; RESP 18; TEMP 36.6; O2SAT 97
[2021-06-29] MEDS: nicotine 2 mg Gum BUCCAL ×2 (15:01→19:16)
[2021-06-29] MEDS: mirtazapine 15 mg Tablet PO (20:19)
[2021-06-29] MEDS: fluticasone nasal spray 16gm Btl 1 SPRAY INTRANASAL (20:19)
[2021-06-29 21:06] VITALS: BP 117/84; PULSE 70; RESP 16; TEMP 36.8; O2SAT 94
[2021-06-30 06:00] VITALS: BP 136/98; PULSE 68; RESP 18; TEMP 36.8; O2SAT 98
[2021-06-30] MEDS: fluoxetine 20 mg Capsule 40 MG PO (08:22)
[2021-06-30] MEDS: multivitamin therapeutic Tablet 1 TAB PO (08:23)
[2021-06-30] MEDS: thiamine 100 mg Tablet PO (08:23)
[2021-06-30] MEDS: metoprolol succinate ER (24 HR) 50 mg Tablet PO (08:23)
[2021-06-30] MEDS: folic acid 1 mg Tablet PO (08:23)
[2021-06-30] MEDS: aspirin 81 mg EC Tablet PO (08:23)
[2021-06-30] MEDS: loratadine 10 mg Tablet PO (08:23)
[2021-06-30] MEDS: lisinopril 20 mg Tablet PO (08:23)
[2021-06-30] MEDS: nicotine 2 mg Gum BUCCAL (08:41)
[2021-06-30 14:00] VITALS: BP 147/102; PULSE 100; RESP 19; TEMP 36.8; O2SAT 94
[2021-06-30] MEDS: nicotine 4 mg lozenge MUCOUS MEM ×3 (15:18→20:38)
--- NOTE | 2021-06-30 18:50 | P.NPUPN_ITS ---
Subjective NPU Subjective: Patient presents today continuing to manage himself appropriately and without outbursts or anger secondary to being kept on a 96-hour hold for observation. 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 He continues to deny a need or desire to initiate medication for any current issues now that his intoxication has resolved. He reports that his ex- will pick him up upon discharge and we discussed discharge in the morning. Mental Status Exam MSE Comments: This is an overweight white male in hospital scrubs with adequate grooming and eye contact. Absent dentition. No abnormal movements. Cooperative with exam in no acute distress. Speech was normal rate and volume. Mood described as pretty good, affect euthymic. Thought process, organized. Thought content: patient denies any suicidal or homicidal ideation, no delusions reported or noted, and denies any auditory or visual hallucinations. Attention and concentration are intact and memory is reliable but none were formally tested. He is alert and oriented three times. Insight and judgment are fair. Impulse control is limited. Vitals/I&O/Wt Last Vital Signs Temp 98.2 F 06/30/21 14:00 Pulse 100 06/30/21 14:00 Resp 19 H 06/30/21 14:00 BP 147/102 06/30/21 14:00 Pulse Ox 94 06/30/21 14:00 Weight last 48 hrs Weight 90.718 kg Data NPU : 06/28/21 15:28 06/29/21 07:08 A&P Assessment and plan (1) Adjustment disorder with mixed disturbance of emotions and conduct: Status: Acute (2) Suicidal ideation: Status: Acute (3) Alcohol use disorder, severe, dependence: Status: Acute Plan This is a 51 year old white male with a long history of depression, anxiety, alcohol dependance, and frequent legal problems who presents, as he has in the past, intoxicated but now on a 96 hour hold secondary to suicidal statements, b ut not wanting any medication started. 1.? Continue current medications 2.? Encourage individual, group and milieu therapy 3.? Continue q-15 minute check for safety 4.? Recommend sober living treatment at the highest level of care to which the patient is willing to commit. 5.? If no additional concerns raised, plan for discharge in the morning. Involuntary Hold Information 96 Hour Hold: 96 Hour Involuntary Admission: Yes 96 Hour Hold Ending Date: 07/04/21 96 Hour Hold Ending Time: 12:01 Attestations NPU Medical Necessity Statement*: Inpatient hospitalization is medically necessary and the clinically appropriate intervention at this time. We will monitor medications and make changes as indicated. Likely length of stay is 1-2 days. Coding Level of Care Code Acute Military Technician for [facility] Fwd Diagnoses Adjustment disorder with mixed disturbance of emotions and conduct F43.25 Suicidal ideation R45.851 Alcohol use disorder, severe, dependence F10.20
[2021-06-30 19:44] VITALS: BP 146/100; PULSE 66; RESP 20; TEMP 36.6; O2SAT 96
[2021-06-30] MEDS: mirtazapine 15 mg Tablet PO (20:07)
[2021-06-30] MEDS: fluticasone nasal spray 16gm Btl 1 SPRAY INTRANASAL (20:07)
[2021-07-01 06:00] VITALS: BP 177/108; PULSE 61; RESP 18; TEMP 36.4; O2SAT 98
[2021-07-01] MEDS: nicotine 4 mg lozenge MUCOUS MEM ×2 (06:27→08:11)
--- NOTE | 2021-07-01 06:59 | W.PM.NPUDCS ---
Diagnoses at Discharge Discharge Diagnosis (1) Adjustment disorder with mixed disturbance of emotions and conduct: Status: Acute (2) Suicidal ideation: Status: Acute (3) Alcohol use disorder, severe, dependence: Status: Acute (4) Major depressive disorder, recurrent: Status: Acute Reason for Visit Reason for Visit: ETOH/ HYPERTENSION Brief History: History of Present Illness Ed Sahu is a 51 year old male who presented to the emergency department with the following report: Chief complaint: General Medical Stated complaint: ETOH/ HYPERTENSION Time Seen by Provider: 06/28/21 14:52 Source: patient Mode of arrival: EMS Limitations: altered mental status (Chronic intoxication) History of Present Illness:?? 51-year-old male who presents emergency room via EMS concerned about his blood pressure.? He has been drinking for the last week.? He has not been taking any of his medications blood pressure is elevated he is not suicidal or homicidal.? Patient readily admits he drinks heavily and expresses no desire to change that plan.? He states has been drinking beer almost continually for a week.? He had told the charge nurse that he wanted be admitted to the [facility] because of his drinking he did not make any such a comment to me.? He is merely concerned with his blood pressure and fascinated by how high his blood alcohol might be requesting several times that we check it so he would know.? Patient denies any chest pain denies any shortness of breath.? He has had difficulty with vision to gait and balance 50 attributes most of that to his blood pressure and rigorous drinking schedule. MD complaint: Chronic intoxication Onset (ago): week(s) Location: head Severity: similar to prior episodes Quality: aching Pain Consistency: intermittent Relieving factors: none Exacerbating factors: other (Alcohol consumption) Associated symptoms: Reports confusion (Due to intoxication), decreased appetite, headache(s), malaise, nausea and weakness; Deny chest pain, cough, diaphoresis, dyspnea, fevers/chills, rash, palpitations, seizures, short of breath, syncope or vomiting Treatments prior to arrival: none. He was admitted to the neuropsychiatric unit for definitive treatment of those issues. He reports that he was psychiatrically hospitalized one time in the past, he believes, here at the neuropsychiatric unit. View of his records show 2 inpatient hospitalizations, one in 2010 and one in 2018 wherein he was seen by this bond writer. We reviewed the last note as he had no substance changes at this time. An excerpt is included below for context. He reports that he is not on any medication at this time. He reports smoking about a pack of cigarettes a day, reports drinking every day or every other day 12 to 14 beers, denies marijuana or any other illicit drug use. He reports that he has never been to a rehab and that he had a DUI back 20 years ago maybe. He presents today reporting that his drinking got himself out of control and that him and his neighbor had a little run in and he had been drinking significantly. At first he said that he had gone past the [employer] tracks and there was a misunderstanding about what was said but later he endorses that he had made some comment but that he was not sober. He denies any history of suicide attempts or self-injurious behaviors but he does report that he has suicidal thoughts. He reports that his drinking has gotten out of control very recently and he reports that he got out of [facility] not too long ago. 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 We discussed the risks, benefits and alternatives of making some calls to get some collateral information given he is on a 96 hour hold and that we don?t discharge the moment we meet them without collaborative information and he understood and agreed to proceed as is documented in this note. He reports that currently he lives in the house sometimes with his ex and sometimes in multiple situations because they reportedly have 5 different places in their area. He denies other than the school for the CDL there haven?t been many changes recently, other than another 2 years he spent in [facility]. He reports his legal history is extensive, that he has had at least 2 seven year bids that he has served and a couple 2 year bids but he reports that his /ex- has stuck with him and they continue to be partners of sorts. He denied any interest in starting any medications or making any changes and continued to focus on wanting to go. We agreed that we would need to get collateral information for that to happen. Psychiatric History: As above. Substance Abuse History: As above Per his 09/07/2018 [facility] inpatient psychiatric evaluation: Date of Service: Sep 07, 2018 Chief Complaint: Obsessive drinkin'. HPI: HPI: The patient is a 48-year-old male admitted on a 96 hour hold brought in by police/EMS for aggressive ideation while intoxicated with alcohol.? Affidavit reviewed on the chart indicates that the patient's made statements about fist fighting. ? Initial alcohol level was 339 and drug screen was negative.? Since admission the patient has been significantly hypertensive and tachycardic at times.? He has received 9 mg of Ativan per alcohol withdrawal as well as clonidine 0.1 mg since admission overnight.? Patient reports that he has been drinking 12 beers daily X2 weeks and was 2 weeks sober prior.? I got a little carried away yesterday. ? The patient reports somebody called for a well-being check. I'm not a physical harm but they's worried about my blood pressure strokin' me out. ? The patient reports that he tends to have significant irritability when he does not drink and agrees that he may benefit from a mood stabilizer.? He also reports that he would like to try and alcohol cessation agent. Psychiatric review of systems: Patient reports problems with chronic irritability at baseline and severe irritability while intoxicated/ aggressive ideation last night while intoxicated.? Patient reports that his mood for the last 2 weeks has been fair .? I wouldn't say I'm depressed. ? He denies anhedonia.? Denies suicidal ideation.? Denies hallucinations or paranoia.? Denies homicidal ideation.? Does report tremulousness and palpitations. Past psychiatric history: No psychiatrist.? Patient has a prior history of psychiatric admission to the [facility] in 2010 for alcohol intoxication [place] on a 96 hour hold. 2+ admissions to [facility]. ? Denies hx SA.? Past meds:? alcohol cessation agent/ Campral. Past medical history: HTN, left arm injury with torn ligament and left ear (reattached).? Was supposed to have inguinal hernia repair yesterday but didn't go.? Denies hx seizures. Family history: mental illness and alcoholism Social history: , no children, ex- is supportive, unemployed and filing for disability.? Dropped out 11th grade with hx LD/literacy problems.? Legal- denies.? Patient has a history of alcohol use since 13 years old.? Denies illicit drugs/ tobacco. Hospital Course Hospital Course He slowly acclimated to the individual, group until you therapies provided. He resented reporting that the situation was a product of him drinking too much but he arrives on a 96 hour hold and so we monitored him to identify whether he would be safe for discharge. We continued his home medication and he showed significant improvement and was able to contract for safety outside of the hospital prior to discharge. During the hospitalization, patient had routine laboratory studies which were within normal limits except for few outliers. Additionally there was a general medical evaluation which was also within normal limits and revealed no new acute processes. Discharge Summary: At the time of discharge, He denied psychosis or lethality. Mood and anxiety were well managed. Patient endorsed a plan to avoid all drugs of abuse and follow-up with the aftercare recommendations of the treatment team. Patient was evaluated and deemed to be absent credible lethality, and had achieved the maximum benefit from an inpatient hospitalization, so was discharged. Involuntary Hold Information 96 Hour Hold: 96 Hour Involuntary Admission: Yes 96 Hour Hold Ending Date: 07/04/21 96 Hour Hold Ending Time: 12:01 Mental Status Exam MSE Comments: This is an overweight white male in hospital scrubs with adequate grooming and eye contact. Absent dentition. No abnormal movements. Cooperative with exam in no acute distress. Speech was normal rate and volume. Mood described as pretty good, affect euthymic. Thought process, organized. Thought content: patient denies any suicidal or homicidal ideation, no delusions reported or noted, and denies any auditory or visual hallucinations. Attention and concentration are intact and memory is reliable but none were formally tested. He is alert and oriented three times. Insight and judgment are fair. Impulse control is limited. Discharge Data Studies Completed and Pending: Laboratory Results WBC 4.8 10^3/uL (4.0- 10.0) 06/28/21 15:28 RBC 4.76 10^6/uL (4.1 -5.3) 06/28/21 15:28 Hgb 15.1 g/dL (11.7-1 6.6) 06/28/21 15:28 Hct 42.6 % (42.0-52.0 ) 06/28/21 15: MCV 89.5 fl (80-94) 06/28/21 15: MCH 31.7 pg (28.0-34. 0) 06/28/21: MCHC 35.4 g/dL (30.0-3 6.0) 06/28/21: RDW 13.0 % (12.1-15.1 ) 06/28/21: Plt Count 196 10^3/cmm (130 -400) 06/28/21: MPV 9.7 fL (7.4-10.4) 06/28/21: Neut % (Auto) 55.8 % 06/28/21: Lymph % (Auto) 31.2 % 06/28/21: [place] % (Auto) 10.5 % 06/28/21: Eos % (Auto) 0.6 % 06/28/21 Baso % (Auto) 1.7 % 06/28/21 Neut # (Auto) 2.67 10^3/uL (1.8 -7.7) 06/28/21: Lymph # (Auto) 1.5 10^3/uL (0.8- 4.8) 06/28/21: [place] # (Auto) 0.5 10^3/uL (0.2- 0.9) 06/28/21: Eos # (Auto) 0.0 10^3/uL (0.0- 0.8) 06/28/21: Baso # (Auto) 0.1 10^3/uL (0.0- 0.1) 06/28/21: Nucleated RBC % (a uto) 0 % 06/28/21: Nucleated RBCs # 0.0 /100WBC 06/28/21: Sodium 127 mmol/L (136-1 45) L 06/29/21 07:08 Potassium 4.3 mmol/L (3.5-5 .1) 06/29/21 07:08 Chloride 91 mmol/L (98-107 ) L 06/29/21 07:08 Carbon Dioxide 22 mmol/L (22-29) 06/29/21 07:08 Anion Gap 18.3 (5-19) 06/29/21 07:08 BUN 8 mg/dL (6-20) 06/29/21 07:08 Creatinine 0.7 mg/dL (0.7-1. 2) 06/29/21 07:08 GFR Calculation 118.9 mL/min (90- 130) 06/29/21 07:08 Glucose 79 mg/dL (65-115) 06/29/21 07:08 Calculated Osmolal ity 261 mOsm/kg (285- 295) L 06/29/21 07:08 Calcium 8.8 mg/dL (8.5-10 .5) 06/29/21 07:08 Total Bilirubin 0.4 mg/dL (0.15-1 .2) 06/28/21 15:28 Direct Bilirubin 0.20 mg/dL (0.00- 0.30) 06/28/21 15:28 AST 91 U/L (0-40) H 06/28/21 15:28 ALT 59 U/L (0-41) H 06/28/21 15:28 Alkaline Phosphata se 70 IU/L (40-130) 06/28/21 15:28 Total Protein 7.0 g/dL (6.6-8.7 ) 06/28/21 15:28 Albumin 4.7 g/dL (3.5-5.2 ) 06/28/21 15:28 Globulin 2.3 g/dL (1.3-4.6 ) 06/28/21 15:28 Salicylates < 0.3 mg/dL (3-10 ) L 06/28/21 15:28 Acetaminophen < 5.0 ug/mL (10-3 0) L 06/28/21 15:28 Ethyl Alcohol 285 mg/dL (0-10) H 06/28/21 15:28 Vitals: Last Vital Signs Temp 97.5 F L 07/01/21 06:00 Pulse 61 07/01/21 06:00 Resp 18 07/01/21 06:00 BP 177/108 07/01/21 06:00 Pulse Ox 98 07/01/21 06:00 Discharge Plan Discharge Patient Disposition: Home Condition: Stable Prescriptions: Continued diclofenac sodium 50 mg tablet,delayed release (DR/EC) 50 mg PO Q12H PRN (Reason: pain) 30 Days Qty: 60 5RF Rx Instructions: WITH FOOD lisinopril 20 mg tablet 20 mg PO DAILY 30 Days Qty: 30 5RF metoprolol succinate 50 mg tablet extended release 24 hr 50 mg PO DAILY 30 Days Qty: 30 5RF fluticasone propionate 50 mcg/actuation spray,suspension 1 spray intranasal Q12H Qty: 15.8 5RF Rx Instructions: administer into each nostril fluoxetine 40 mg capsule 40 mg PO DAILY 30 Days Qty: 30 3RF loratadine 10 mg tablet 10 mg PO DAILY 90 Days Qty: 90 0RF aspirin [Adult Aspirin Regimen] 81 mg tablet,delayed release (DR/EC) 81 mg PO DAILY Qty: 30 0RF mirtazapine 15 mg tablet 15 mg PO BEDTIME 0RF Discharge Orders: Discharge Order (Routine); Ordered 07/01/21 Ordered By: Hari Granados [facility]Other] - 07/07/21 1:30 pm (Follow up. ) Oliva Granados MD [Primary Care Provider] - 07/09/21 11:00 am (Follow up.) Discharge Diet: Regular Discharge Activity: Resume usual activity Patient Instructions: Alcohol Abuse, Depression (ED), Suicide Prevention (ED), Opioid Safety Discharge Attestations NPU Time Spent in Discharge Care*: less than 30 min Specific Discharge Activities: Specific discharge activities: educating patient, discussing with field case manager/social workers/dc planners, documenting/other paperwork and evaluating patient/reviewing data Coding Level of Care Code Acute Chg FW DC note Diagnoses Adjustment disorder with mixed disturbance of emotions and conduct F43.25 Suicidal ideation R45.851 Alcohol use disorder, severe, dependence F10.20 Major depressive disorder, recurrent F33.9
[2021-07-01 07:37] VITALS: BP 177/108; PULSE 61; RESP 18; TEMP 36.4; O2SAT 98
[2021-07-01] MEDS: fluticasone nasal spray 16gm Btl 1 SPRAY INTRANASAL (08:10)
[2021-07-01] MEDS: lisinopril 20 mg Tablet PO (08:11)
[2021-07-01] MEDS: thiamine 100 mg Tablet PO (08:11)
[2021-07-01] MEDS: fluoxetine 20 mg Capsule 40 MG PO (08:11)
[2021-07-01] MEDS: multivitamin therapeutic Tablet 1 TAB PO (08:11)
[2021-07-01] MEDS: loratadine 10 mg Tablet PO (08:11)
[2021-07-01] MEDS: folic acid 1 mg Tablet PO (08:11)
[2021-07-01] MEDS: metoprolol succinate ER (24 HR) 50 mg Tablet PO (08:11)
[2021-07-01] MEDS: aspirin 81 mg EC Tablet PO (08:11)
== END 2021-07-01 08:33 | disposition home or self-care (01) | DRG 897 ==
LOC: ER 16:47 → NP 18:26
PROVIDERS: Admitting Provider Psychiatry & Neurology Psychiatry; Emergency Provider Family Medicine; PCP Family Medicine; Visit Provider Psychiatry & Neurology Psychiatry
DX: F10.229 Alcohol dependence with intoxication, unspecified (principal); R45.851 Suicidal ideations; F33.9 Major depressive disorder, recurrent, unspecified; I10 Essential (primary) hypertension; F41.1 Generalized anxiety disorder; F17.210 Nicotine dependence, cigarettes, uncomplicated; F43.25 Adjustment disorder with mixed disturbance of emotions and conduct; Z79.82 Long term (current) use of aspirin
CPT/HCPCS: 36415; 80048; 80076; 80307; 85025; 93005; 96374; 96375; 97150; 97165; 99285; J2405; J3490; J7040

== ENCOUNTER → 2021-12-02 14:54 | Outpatient (BNVA) | payer MEDICAID, SELFPAY | PROVIDERS: PCP Family Medicine; Visit Provider Family Medicine | DX: I10 Essential (primary) hypertension (principal); J30.2 Other seasonal allergic rhinitis; M17.11 Unilateral primary osteoarthritis, right knee; F41.1 Generalized anxiety disorder; Z13.220 Encounter for screening for lipoid disorders; Z13.6 Encounter for screening for cardiovascular disorders | CPT/HCPCS: 80053; 80061 ==

== ENCOUNTER 2022-03-14 15:20 | Inpatient (IN) | payer MEDICAID, SELFPAY ==
[2022-03-14] VITALS (13 sets, daily range): BP systolic 115–145; BP diastolic 63–95; PULSE 83–112; RESP 14–24; TEMP 36.9; O2SAT 89–98
--- NOTE | 2022-03-14 15:25 | ECG_ITS ---
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 Measurements Intervals Ace Rate: 100 P: 55 ND: 157 QRS: 59 QRSD: 86 T: 39 QT: 332 QTc: 430 Interpretive Statements SINUS TACHYCARDIA ABNORMAL RHYTHM ECG Compared to ECG 06/28/2021 16:28:40 Sinus rhythm no longer present Electronically Signed On 03-15-2022 19:56:26 [employer] SOLUTIONS SPECIALIST by Romana Roberts M.D. [email or web address], [id number]
--- NOTE | 2022-03-14 15:26 | XRR_ITS ---
PROCEDURE INFORMATION: Exam: XR Chest Exam date and time: 03/14/2022 3:39 PM Age: 51 years old Clinical indication: Shortness of breath; Additional info: SOB TECHNIQUE: Imaging protocol: Radiologic exam of the chest. Views: 1 view. COMPARISON: CR XR chest 1V [id number] 09/06/2018 4:54 PM FINDINGS: Lungs: Unremarkable. No consolidation. Pleural spaces: Unremarkable. No pleural effusion. No pneumothorax. Heart/Mediastinum: Unremarkable. No cardiomegaly. Bones/joints: Unremarkable. XR/XR chest 1V portable [id number] IMPRESSION: No acute findings.
--- NOTE | 2022-03-14 15:29 | W.ED.ALCOHOL ---
HPI - Alcohol General: Chief Complaint: Alcohol Stated Complaint: ETOH Time Seen by Provider: 03/14/22 15:22 Source: patient and EMS Mode of arrival: EMS Limitations: no limitations History of Present Illness: 51-year-old male who has a history of alcoholism states he has been drinking heavily today he does have a history of COPD states has been having some shortness of breath he also states that 2 or 3 hours ago he dumped his lisinopril pills there are 30 mg and he picked him up off the floor took him he is unsure how many he took he denies any chest pain he has had no vomiting or diarrhea or fevers. Associated symptoms: Deny abdominal pain, depression, nausea or vomiting Review of Systems Const: Denies: fever(s), chills, body aches or change in appetite Eyes: Denies: blurry vision or eye discomfort ENMT: Denies: throat pain or dental pain Card: Denies: chest pain Resp: Reports: dyspnea GI: Denies: abdominal pain, nausea, vomiting or diarrhea : Denies: dysuria Musc: Denies: neck pain or back pain Skin/Breast: Denies: rash Neuro: Denies: headache(s) Psych: Denies: depression Jagdish/Lymph: Denies: easy bruising All/Imm: Denies: urticaria PFSH ED PFSH: Medical History LEANDRO (generalized anxiety disorder) History of alcoholism Hypertension Insomnia Problems related to lack of adequate sleep Psychiatric care Seasonal allergies Surgical History H/O hernia repair Family History Family/Other Hypertension Mother Muscular dystrophy Father Myocardial infarct Social History Smoking and tobacco status: current every day smoker cigarettes Packs smoked per day: 1 Quit status (tobacco): not considering quitting Second hand smoke exposure: Yes Alcohol intake: current Alcohol intake frequency: 3 or more drinks per day Desire information about substance/drug rehabilitation?: No Caregiver/support person: Yes Lives independently: No Household members: spouse History of recent travel: No Current gender identity: Male Physical Exam Const: COMMON NORMALS: no acute distress and patient oriented x3 GENERAL APPEARANCE: odor of alcohol detected HENMT: COMMON NORMALS: normocephalic and atraumatic HEAD & SCALP: normocephalic and atraumatic Eye: COMMON NORMALS: Equal, round and reactive pupils present and EOMs intact bilaterally PUPIL: Yes Equal, round and reactive pupils present Neck/C-Spine: COMMON NORMALS: full ROM and supple Chest: COMMONS NORMALS: normal inspection of the chest and normal palpation of entire chest wall Resp: COMMON NORMALS: normal respiratory effort, No retractions, No use of accessory muscles and clear to auscultation bilaterally AUSCULTATION: clear to auscultation bilaterally Cardio: COMMON NORMALS: regular rate, regular rhythm and No murmurs present (Cardio) RATE: regular rate RHYTHM: regular rhythm GI: COMMON NORMALS: Normal to inspection, nondistended, normoactive bowel sounds present, Soft to palpation, non-tender and no masses PALPATION: Yes Soft to palpation Extremity: COMMON NORMALS: normal to inspection and full ROM Neuro: COMMON NORMALS: patient oriented x3, moves all extremities and no focal motor deficits Psych: COMMON NORMALS: mental status grossly normal, Normal thought process present and cooperative THOUGHT PROCESS: Normal thought process present Skin: COMMON NORMALS: no rashes or lesions noted and no wounds GENERAL SKIN EXAM: no rashes or lesions noted Course Vital Signs: Vital signs: Vital Signs Pulse Rate 90 03/14/22 17:56 Respiratory Rate 18 03/14/22 17:56 Blood Pressure 136/89 03/14/22 17:56 Pulse Oximetry 98 03/14/22 17:56 Oxygen Delivery Me thod 03/14/22 16:40 MDM - Alcohol Medical Decision Making Patient presents with alcohol intoxication he also has COPD he did have some wheezing he feels much improved after breathing treatment we will prescribe him albuterol along with steroids for home he had his question of him taking lisinopril he is actually been hypertensive here no signs of overdose. Lab Data 03/14/22 16:05 03/14/22 16:05 Radiology Impressions Chest X-Ray 03/14/22 15:26 IMPRESSION: No acute findings. Laboratory Results WBC 6.7 10^3/uL (4.0-10.0) 03/14/22 16:05 RBC 4.41 10^6/uL (4.1-5.3) 03/14/22 16:05 Hgb 14.2 g/dL (11.7-16.6) 03/14/22 16:05 Hct 42.6 % (42.0-52.0) 03/14/22 16:05 MCV 96.6 fl (80-94) H 03/14/22 16:05 MCH 32.2 pg (28.0-34.0) 03/14/22 16:05 MCHC 33.3 g/dL (30.0-36.0) 03/14/22 16:05 RDW 14.7 % (12.1-15.1) 03/14/22 16:05 Plt Count 410 10^3/cmm (130-400) H 03/14/22 16:05 MPV 8.5 fL (7.4-10.4) 03/14/22 16:05 Neut % (Auto) 50.6 % 03/14/22 16:05 Lymph % (Auto) 36.8 % 03/14/22 16:05 [place] % (Auto) 10.1 % 03/14/22 16:05 Eos % (Auto) 1.4 % 03/14/22 16:05 Baso % (Auto) 0.9 % 03/14/22 16:05 Neut # (Auto) 3.38 10^3/uL (1.8-7.7) 03/14/22 16:05 Lymph # (Auto) 2.5 10^3/uL (0.8-4.8) 03/14/22 16:05 [place] # (Auto) 0.7 10^3/uL (0.2-0.9) 03/14/22 16:05 Eos # (Auto) 0.1 10^3/uL (0.0-0.8) 03/14/22 16:05 Baso # (Auto) 0.1 10^3/uL (0.0-0.1) 03/14/22 16:05 Nucleated RBC % (auto) 0 % 03/14/22 16:05 Nucleated RBCs # 0.0 /100WBC 03/14/22 16:05 PT 13.30 SECONDS (12.1-14.9) 03/14/22 16:05 INR 0.98 (0.8-1.2) 03/14/22 16:05 Sodium 141 mmol/L (136-145) 03/14/22 16:05 Potassium 4.0 mmol/L (3.5-5.1) 03/14/22 16:05 Chloride 101 mmol/L (98-107) 03/14/22 16:05 Carbon Dioxide 26 mmol/L (22-29) 03/14/22 16:05 Anion Gap 18.0 (5-19) 03/14/22 16:05 BUN 6 mg/dL (6-20) 03/14/22 16:05 Creatinine 0.6 mg/dL (0.7-1.2) L 03/14/22 16:05 GFR Calculation 142.0 mL/min (90-130) H 03/14/22 16:05 Glucose 49 mg/dL (65-115) L 03/14/22 16:05 Calculated Osmolality 287 mOsm/kg (285-295) 03/14/22 16:05 Calcium 8.9 mg/dL (8.5-10.5) 03/14/22 16:05 Total Bilirubin 0.2 mg/dL (0.15-1.2) 03/14/22 16:05 AST 20 U/L (0-40) 03/14/22 16:05 ALT 13 U/L (0-41) 03/14/22 16:05 Alkaline Phosphatase 94 U/L (40-130) 03/14/22 16:05 NT-Pro-B Natriuret Pep 5 pg/mL (0-125) 03/14/22 16:05 Total Protein 7.5 g/dL (6.6-8.7) 03/14/22 16:05 Albumin 4.1 g/dL (3.5-5.2) 03/14/22 16:05 Globulin 3.4 g/dL (1.3-4.6) 03/14/22 16:05 Ethyl Alcohol 317 mg/dL (0-10) H* 03/14/22 16:05 EKG Data EKG 1: I personally reviewed and interpreted this EKG as follows: EKG interpretation date: 03/14/22 EKG interpretation time: 15:33 Interpretation: sinus tach hr [address] or t wave abnormalities qrs 86 qtc 389 Discharge Plan Discharge Patient Disposition: Home Clinical Impression: Alcoholic intoxication, COPD exacerbation Condition: Stable Prescriptions: New prednisone 50 mg tablet 50 mg PO DAILY Qty: 5 0RF albuterol sulfate 90 mcg/actuation HFA aerosol inhaler 2 inh INHALATION Q6H PRN (Reason: shortness of breath or wheezing) Qty: 8 0RF No Action lisinopril 30 mg tablet 30 mg PO DAILY 90 Days Qty: 90 1RF fluticasone propionate 50 mcg/actuation spray,suspension 1 spray intranasal Q12H Qty: 15.8 5RF Rx Instructions: administer into each nostril diclofenac sodium 50 mg tablet,delayed release (DR/EC) 50 mg PO Q12H PRN (Reason: pain) 30 Days Qty: 60 5RF Rx Instructions: WITH FOOD loratadine 10 mg tablet 10 mg PO DAILY 90 Days Qty: 90 3RF metoprolol succinate 50 mg tablet extended release 24 hr 50 mg PO DAILY 90 Days Qty: 90 1RF fluoxetine 40 mg capsule 40 mg PO DAILY 30 Days Qty: 30 3RF mirtazapine 15 mg tablet 15 mg PO BEDTIME 30 Days Qty: 30 3RF aspirin [Adult Aspirin Regimen] 81 mg tablet,delayed release (DR/EC) 81 mg PO DAILY Qty: 30 0RF Discharge Orders: Discharge ED (Routine); Ordered 03/14/22 Ordered By: Clay Roth Referrals: Oliva Granados MD [Primary Care Provider] - 1-3 days Discharge Diet: Advance as tolerated Discharge Activity: Resume usual activity Patient Instructions: COPD (Chronic Obstructive Pulmonary Disease) (ED), Alcohol Intoxication (ED) Coding Level of Care Code ED Digital Media Sales Consultant for Donnieg Fwd Exam Comprehensive
[2022-03-14 16:11] LABS: Basophils # 0.1 10^3/uL (0.0-0.1); Basophils % 0.9 %; Eosinophils # 0.1 10^3/uL (0.0-0.8); Eosinophils % 1.4 %; Hematocrit 42.6 % (42.0-52.0); Hemoglobin 14.2 g/dL (11.7-16.6); Lymphocytes # 2.5 10^3/uL (0.8-4.8); Lymphocytes % 36.8 %; Mean Corpuscular HGB Conc 33.3 g/dL (30.0-36.0); Mean Corpuscular Hemoglobin 32.2 pg (28.0-34.0); Mean Corpuscular Volume 96.6 fl (80-94); Mean Platelet Volume 8.5 fL (7.4-10.4); Monocytes # 0.7 10^3/uL (0.2-0.9); Monocytes % 10.1 %; Neutrophils # 3.38 10^3/uL (1.8-7.7); Neutrophils % 50.6 %; Nucleated Red Blood Cells % 0 %; Platelet Count 410 10^3/cmm (130-400); Red Blood Count 4.41 10^6/uL (4.1-5.3); Red Cell Distribution Width 14.7 % (12.1-15.1); White Blood Count 6.7 10^3/uL (4.0-10.0)
[2022-03-14] MEDS: multivitamin therapeutic Tablet 1 TAB PO (16:13)
[2022-03-14] MEDS: sodium chloride 0.9% 1,000 ML 999 ML IV (16:29)
[2022-03-14 16:32] LABS: INR 0.98 (0.8-1.2)
[2022-03-14] MEDS: ipratropium 0.5 mg/2.5 mL Neb INHALATION (16:40)
[2022-03-14] MEDS: albuterol 2.5 mg/3 mL Neb INHALATION ×2 (16:40→19:57)
[2022-03-14 16:51] LABS: Alanine Aminotransferase 13 U/L (0-41); Albumin Level 4.1 g/dL (3.5-5.2); Alkaline Phosphatase 94 U/L (40-130); Aspartate Amino Transferase 20 U/L (0-40); Blood Urea Nitrogen 6 mg/dL (6-20); Calcium 8.9 mg/dL (8.5-10.5); Carbon Dioxide 26 mmol/L (22-29); Chloride 101 mmol/L (98-107); Globulin 3.4 g/dL (1.3-4.6); Glucose 49 mg/dL (65-115); NT Pro B Type Natriuretic Pept 5 pg/mL (0-125); Osmolality Calculated 287 mOsm/kg (285-295); Sodium 141 mmol/L (136-145); Total Bilirubin 0.2 mg/dL (0.15-1.2); Total Protein 7.5 g/dL (6.6-8.7)
[2022-03-14 16:54] LABS: Alcohol Level 317 mg/dL (0-10)
--- NOTE | 2022-03-14 18:16 | PC.NURSE ---
I called poison control and talked to them, the paperwork is in the chart
--- NOTE | 2022-03-14 18:34 | PC.NURSE ---
Pt states he has no one that can come pick him up, working on medicaid ride
--- NOTE | 2022-03-14 20:26 | PM.HP ---
Providers/Chief Complaint Primary Care Provider: Oliva Granados MD Chief Complaint: ETOH History of Present Illness Ed Sahu is a 51 year old male past medical history of COPD, anxiety, hypertension, alcohol abuse presented to the hospital today stating that he has been drinking a lot but also having shortness of breath. He says that couple hours before he came to the hospital he dumped his lisinopril pills on the ground and he picked them off the floor to take hoping he would feel better. He is unsure how many pills he may have taking. They are 30 mg each. Patient came in around 330 to the hospital and his blood pressure has been stable if not it has been on the higher side. In the ER alcohol level was checked and it was 340. Blood pressure 136/89, respiratory 18, pulse 90, pulse ox 98%. Chest x-ray was done which did not show any acute findings. WBC 6.7, hemoglobin 14.2, BUN 6, creatinine 0.6 BNP 5. Patient was going to be discharged later however he kept getting hypoxic on room air and now requiring 2 L of nasal cannula oxygen. He will be treated for COPD exacerbation and admitted to the hospital for observation at this time. He currently denies any chest pain, abdominal pain, nausea, vomiting, diarrhea, constipation. Patient is intoxicated at this time. Drinks a 12 pack daily but says he drank a little bit more than that today. Also poor historian unable to provide much of the history at this time. Medications/Allergies Home Medications Medication Instructions Recorded Confirmed Last Taken Type aspirin 81 mg tablet,delayed 81 mg PO DAILY #30 tabs 05/03/19 03/04/22 06/27/21 Rx release (Adult Aspirin Regimen) diclofenac sodium 50 mg 50 mg PO Q12H PRN pain 30 days #60 12/02/21 03/04/22 Unknown Rx tablet,delayed release tabs fluticasone propionate 50 1 spray intranasal Q12H #15.8 mL 12/02/21 03/04/22 Unknown Rx mcg/actuation nasal spray,suspension lisinopril 30 mg tablet 30 mg PO DAILY 90 days #90 tabs 12/02/21 03/04/22 Unknown Rx loratadine 10 mg tablet 10 mg PO DAILY 90 days #90 tabs 12/02/21 03/04/22 Unknown Rx metoprolol succinate 50 mg 50 mg PO DAILY 90 days #90 tabs 12/02/21 03/04/22 Unknown Rx tablet,extended release 24 hr fluoxetine 40 mg capsule 40 mg PO DAILY 30 days #30 caps 01/21/22 03/04/22 Unknown Rx mirtazapine 15 mg tablet 15 mg PO BEDTIME 30 days #30 tabs 01/21/22 03/04/22 Unknown Rx albuterol sulfate 90 mcg/actuation 2 inh inhalation Q6H PRN shortness 03/14/22 Unknown Rx aerosol inhaler of breath or wheezing #8 grams prednisone 50 mg tablet 50 mg PO DAILY #5 tabs 03/14/22 Unknown Rx Allergies Allergy/AdvReac Type Severity Reaction Status Date / Time acetaminophen [From [place]] Allergy Unknown ALGY-Rash Verified 03/04/22 06:59 hydrocodone [From [place]] Allergy Unknown ALGY-Rash Verified 03/04/22 06:59 Penicillins Allergy ALGY-Swell Verified 03/04/22 06:59 Lip/Tongue/Throat PFSH Acute PFSH: Medical History LEANDRO (generalized anxiety disorder) History of alcoholism Hypertension Insomnia Problems related to lack of adequate sleep Psychiatric care Seasonal allergies Surgical History H/O hernia repair Family History Family/Other Hypertension Mother Muscular dystrophy Father Myocardial infarct Social History Smoking and tobacco status: current every day smoker cigarettes Packs smoked per day: 1 Quit status (tobacco): not considering quitting Second hand smoke exposure: Yes Alcohol intake: current Alcohol intake frequency: 3 or more drinks per day Desire information about substance/drug rehabilitation?: No Caregiver/support person: Yes Lives independently: No Household members: spouse History of recent travel: No Current gender identity: Male Vitals/I&O/Wt Last Vital Signs Pulse 101 H 03/14/22 20:06 Resp 23 H 03/14/22 20:00 BP 131/85 03/14/22 20:00 Pulse Ox 95 03/14/22 20:06 O2 Del Method 03/14/22 20:00 O2 Flow Rate 2 03/14/22 20:00 Physical Exam Narrative: General: Alert oriented x3, patient seen sitting up in bed slightly tachycardic. HEENT: Normocephalic, atraumatic, EOMI, breathing normally on 2 L nasal cannula. No acute respiratory distress. Cardio: Regular rate rhythm, normal S1-S2, Respiratory: Does have mild rhonchi bilaterally at bases. Otherwise clear to auscultation. GI: Abdomen soft, nontender, nondistended, bowel sounds + Extremities: No edema noted. Data 03/14/22 16:05 03/14/22 16:05 A&P Assessment and plan (1) Alcoholic intoxication: (2) COPD exacerbation: (3) Acute respiratory failure with hypoxemia: (4) Major depressive disorder, recurrent: (5) Hypertension: Qualifiers: Hypertension type: primary hypertension Qualified Code(s): I10 - Essential (primary) hypertension (6) LEANDRO (generalized anxiety disorder): Plan #COPD exacerbation #Oxygen dependency #Alcohol intoxication #Anxiety #Hypertension #Insomnia #Depression ? Check procalcitonin. There is no evidence of pneumonia on x-ray at this time. We will continue on oxygen and wean off as able ? Solu-Medrol 60 IV twice daily, azithromycin 500 daily ? IV fluids normal saline 75 cc/h ? Patient currently has a high alcohol level. However if he starts to withdrawal we will add on a CIWA protocol ? DuoNeb every 4 hours scheduled ? Continue aspirin, fluoxetine, metoprolol 50 daily, mirtazapine ? Hold lisinopril at this time ? Place on CIWA protocol ? We will use phenobarbital if needed. 130 mg every hour as needed alcohol withdrawal. - Admit to ICU. - Placed on thiamine and folic acid Full code DVT prophylaxis: Heparin SQ twice daily Attestations Medical Necessity Statement*: Will cross greater than 2 midnight stay for alcohol withdrawal and COPD exacerbation. Admit patient to ICU at this time. Coding Level of Care Code Acute Pattern Designer for [facility] Diagnoses Alcoholic intoxication F10.929 COPD exacerbation J44.1 Acute respiratory failure with hypoxemia J96.01 Major depressive disorder, recurrent F33.9 Hypertension I10 Hypertension type: primary hypertension LEANDRO (generalized anxiety disorder) F41.1
[2022-03-14 21:06] LABS: Procalcitonin 0.02 ng/mL (0-0.5)
--- NOTE | 2022-03-14 23:58 | PC.NURSE ---
Upon admitting pt to floor, pt alert and oriented to person, birthday, and place. Pt confused about time, unable to complete admission assessment at this time due to AMS. This nurse talked to Dr. Barrera at the nurses station and she was wanting to know if we could administer IV phenobarbital on [facility] unit, if not we will transfer to ICU. [facility] superintendent ammunition storage was contacted and she said IV phenobarbital needs to be done in the ICU. Pt scored [address] Barrera notified of the CIWA score and transferred pt to ICU. Report called to [place] in ICU at this time.
[2022-03-15] VITALS (79 sets, daily range): BP systolic 127–187; BP diastolic 83–131; PULSE 83–122; RESP 14–43; TEMP 36.7–37.3; O2SAT 87–95
[2022-03-15] MEDS: enoxaparin 40 mg/0.4 mL Syringe SUBCUT ×2 (00:08→20:40)
[2022-03-15] MEDS: sodium chloride 0.9% 1,000 ML 75 ML IV ×3 (00:10→23:51)
[2022-03-15] MEDS: ondansetron 2 mg/ML SDV 2 mL 4 MG IVP (00:23)
[2022-03-15] MEDS: PHENobarbital 130 mg/mL SDV 1 mL IV ×8 (00:36→20:40)
[2022-03-15] MEDS: dexmedetomidine 400 MCG in sodium chloride 0.9% (100 ml) 100 ML IV (02:45)
[2022-03-15] MEDS: hyDRALAzine 20 mg/mL INJ 1 mL 5 MG IVP (04:59)
[2022-03-15 06:21] LABS: Basophils % 0.2 %; Hematocrit 38.9 % (42.0-52.0); Hemoglobin 13.2 g/dL (11.7-16.6); Lymphocytes # 0.3 10^3/uL (0.8-4.8); Lymphocytes % 5.1 %; Mean Corpuscular HGB Conc 33.9 g/dL (30.0-36.0); Mean Corpuscular Volume 94.2 fl (80-94); Mean Platelet Volume 8.8 fL (7.4-10.4); Monocytes % 0.2 %; Neutrophils # 4.97 10^3/uL (1.8-7.7); Neutrophils % 94.3 %; Nucleated Red Blood Cells % 0 %; Platelet Count 330 10^3/cmm (130-400); Red Blood Count 4.13 10^6/uL (4.1-5.3); Red Cell Distribution Width 14.3 % (12.1-15.1); White Blood Count 5.3 10^3/uL (4.0-10.0)
[2022-03-15 06:56] LABS: Alanine Aminotransferase 10 U/L (0-41); Albumin Level 3.8 g/dL (3.5-5.2); Alkaline Phosphatase 79 U/L (40-130); Anion Gap 15.3 (5-19); Aspartate Amino Transferase 16 U/L (0-40); Blood Urea Nitrogen 5 mg/dL (6-20); Calcium 8.9 mg/dL (8.5-10.5); Carbon Dioxide 24 mmol/L (22-29); Chloride 98 mmol/L (98-107); Glomerular Filtration Rate 175.3 mL/min (90-130); Glucose 157 mg/dL (65-115); Magnesium 1.6 mg/dL (1.7-2.3); Osmolality Calculated 277 mOsm/kg (285-295); Potassium 4.3 mmol/L (3.5-5.1); Sodium 133 mmol/L (136-145); Total Bilirubin 0.3 mg/dL (0.15-1.2); Total Protein 6.8 g/dL (6.6-8.7)
[2022-03-15] MEDS: pantoprazole DR 40 mg Tablet PO (08:11)
--- NOTE | 2022-03-15 08:51 | PC.PHAR ---
unable to verify medications with pt or pts [phone] pharmacy [facility] is closed-medications entered are what shows has been filled recently on ext med history and what was entered on previous entered med list-notes are made with last fill dates in pharmacy comments
[2022-03-15] MEDS: folic acid 5 mg/ml MDV 10mL 1 MG IVP (09:03)
[2022-03-15] MEDS: ipratropium-albuterol 3 mL Neb INHALATION ×2 (09:23→19:59)
[2022-03-15] MEDS: aspirin 81 mg EC Tablet PO (09:24)
[2022-03-15] MEDS: metoprolol succinate ER (24 HR) 50 mg Tablet PO (09:24)
[2022-03-15] MEDS: nicotine 4 mg lozenge MUCOUS MEM ×3 (11:08→19:39)
[2022-03-15] MEDS: nicotine 14 mg Patch 1 PATCH TRANSDERMA (11:08)
[2022-03-15 11:44] LABS: Amphetamines Screen Urine Negative (Negative); Barbiturates Screen Urine Positive (Negative); Benzodiazepines Screen Urine Negative (Negative); Cocaine Screen Urine Negative (Negative); Opiate Screen Urine Negative (Negative); PCP Screen Urine Negative (Negative); THC Screen Urine Negative (Negative)
--- NOTE | 2022-03-15 14:58 | P.PN_ITS ---
Subjective Subjective: Patient was seen and examined this morning, currently he is not in acute distress, holding very nice conversation, was asking when he can go home, still on Precedex, and requiring phenobarbital, antihypertensive medications has been started, has been started on DuoNebs. Overall he is doing better. Medications: Medication Review Details: Generic Name Dose Route Start Last Admin Trade Name Vic PRN Reason Stop Dose Admin Albuterol/Ipratrop ium 3 ml 03/15/22 08:30 03/15/22 14:02 Ipratropium-Albu terol 3 Ml Neb INHALATION Not Given Q6H.RESP ROBBIN Aspirin 81 mg 03/15/22 09:00 03/15/22 09:24 Aspirin 81 Mg Ec Tablet PO 81 mg DAILY ROBBIN Administration Clonidine HCl 0.1 mg 03/15/22 09:00 03/15/22 09:24 Clonidine 0.1 Mg Tablet PO Not Given BID ROBBIN Enoxaparin Sodium 40 mg 03/14/22 20:45 03/15/22 00:08 Enoxaparin 40 Mg /0.4 Ml Syringe SUBCUT 40 mg Q24H ROBBIN Administration Folic Acid 1 mg 03/15/22 09:00 03/15/22 09:03 Folic Acid 5 Mg/ Ml Mdv 10ml IVP 1 mg DAILY ROBBIN Administration Sodium Chloride 1,000 mls @ 75 ml s/hr 03/14/22 20:45 03/15/22 08:23 Sodium Chloride 0.9% IV 75 mls/hr .[id number] ROBBIN Administration Dexmedetomidine HC l 400 mcg/ 104 mls @ 0 mls/h r 03/15/22 02:45 03/15/22 11:00 Sodium Chloride IV 0.2 mcg/kg/hr .Q0M ROBBIN 4.75 mls/hr Titration Protocol Per Protocol Methylprednisolone Sodium Succinate 60 mg 03/15/22 00:45 03/15/22 13:50 Methylprednisolo ne Sod Succ 125 Mg /2 Ml Inj IVP 60 mg Q12H ROBBIN Administration Metoprolol Succina te 50 mg 03/15/22 09:00 03/15/22 09:24 Metoprolol Succi sancho Er (24 Hr) 50 Mg Tablet PO 50 mg DAILY ROBBIN Administration Nicotine 1 patch 03/15/22 11:00 03/15/22 11:08 Nicotine 14 Mg P atch TRANSDERMA 1 patch DAILY ROBBIN Administration Nicotine Polacrile x 4 mg 03/15/22 10:59 03/15/22 11:08 Nicotine 4 Mg Lo zenge MUCOUS MEM 4 mg Q4H PRN Administration NICOTINE CRAVINGS Ondansetron HCl 4 mg 03/14/22 20:32 03/15/22 00:23 Ondansetron 2 Mg /Ml Sdv 2 Ml IVP 4 mg Q8H PRN Administration vomiting, or N/V if npo Pantoprazole Sodiu m 40 mg 03/15/22 09:00 03/15/22 08:[address] 40 Mg Tablet PO 40 mg DAILY ROBBIN Administration Phenobarbital Sodi um 130 mg 03/15/22 00:29 03/15/22 13:57 Phenobarbital 13 0 Mg/Ml Sdv 1 Ml IV 130 mg Q1H PRN Administration ALCOHOL WITHDRAWA L Thiamine HCl 100 mg 03/15/22 09:00 03/15/22 08:11 Thiamine 100 Mg/ Ml Sdv IVP 100 mg DAILY ROBBIN Administration Vitals/I&O/Wt Last Vital Signs Temp 98.0 F 03/15/22 08:30 Pulse 110 H 03/15/22 14:00 Resp 18 03/15/22 12:30 BP 156/105 03/15/22 12:30 Pulse Ox 89 L 03/15/22 12:30 O2 Del Method 03/15/22 09:20 O2 Flow Rate 2 03/15/22 09:20 03/14/22 03/15/22 03/15/22 22:59 06:59 14:59 Intake Total 1000 / 1000 219.126 / 8319.389 2014.122 / 2268.122 Output Total 900 / 900 1725 / 1725 Balance 1000 / 1000 -680.874 / 319.126 543.122 / 543.122 Weight last 48 hrs Weight 91.354 kg Physical Exam Const: COMMON NORMALS: patient oriented x3 HENMT: COMMON NORMALS: normocephalic and atraumatic HEAD & SCALP: normocephalic and atraumatic Resp: COMMON NORMALS: clear to auscultation bilaterally EFFORT & INSPECTION: Yes symmetric chest movement AUSCULTATION: clear to auscultation bilaterally Cardio: COMMON NORMALS: regular rate, regular rhythm, S1 normal heart sound present, S2 normal heart sound present, No gallops present (Cardio), No murmurs present (Cardio), No rub (Cardio) and Peripheral pulses 2+ throughout RATE: regular rate RHYTHM: regular rhythm HEART SOUNDS: S1 normal heart sound present and S2 normal heart sound present PERIPHERAL PULSES: Peripheral pulses 2+ throughout GI: COMMON NORMALS: Normal to inspection, nondistended, normoactive bowel sounds present, Soft to palpation, non-tender, No hepatosplenomegaly present and no masses AUSCULTATION: Yes normoactive bowel sounds PALPATION: Yes Soft to palpation and Yes No hepatosplenomegaly present RECTAL EXAM: Yes deferred Extremity: COMMON NORMALS: no clubbing, cyanosis or edema and no pedal edema Neuro: COMMON NORMALS: patient oriented x3 Data 03/15/22 06:10 03/15/22 06:10 A&P Assessment and plan (1) Alcoholic intoxication: (2) COPD exacerbation: (3) Acute respiratory failure with hypoxemia: (4) Major depressive disorder, recurrent: (5) Hypertension: Qualifiers: Hypertension type: primary hypertension Qualified Code(s): I10 - Essential (primary) hypertension (6) LEANDRO (generalized anxiety disorder): Plan 51-year-old male with past medical history of COPD alcohol abuse disorder hypertension was came in with chief complaint of feeling short of breath as well as, indulging in excessive alcohol intake. Currently he is being managed for. Assessment: Acute COPD exacerbation Alcohol intoxication Alcohol abuse disorder Uncontrolled hypertension Monitor for alcohol withdrawal History of anxiety and depression Nicotine use Plan: X-ray chest: No acute finding Procalcitonin 0.02 Continue DuoNebs supplemental oxygen as needed, Solu-Medrol 60 IV twice daily, will de-escalate to p.o. prednisone quickly, as the patient has significant improvement. On IV azithromycin. Currently on Precedex drip as well as phenobarbital as needed, Continue gentle IV hydration, thiamine, folic acid Continue home antihypertensive medication lisinopril clonidine metoprolol Patient is interested in nicotine patch as well as, nicotine lozenges. Monitor CIWA protocol Full code DVT prophylaxis: On Lovenox 40 subcu daily Attestations Medical Necessity Statement*: Patient is to be in hospital for management of COPD exacerbation Time Spent in Patient Care: Greater than 35 minutes (>than 50% of time spent in counselling and/or direct pt care on unit) . Critical Care Time: The high probability of a clinically significant, sudden or life threatening deterioration of the patient's [] system(s) required my full and direct attention, intervention and personal management. The critical care time is as shown. This time is in addition to time spent performing any reported procedures but includes the following: [x] Data and vital sign review and interpretation [x] Patient assessment, examination and intervention [x] Documentation [x] Medication orders and management Critical Care Time (min): 20 Coding Level of Care Code Acute Company Doctor for [facility] Fwd Diagnoses Alcoholic intoxication F10.929 COPD exacerbation J44.1 Acute respiratory failure with hypoxemia J96.01 Major depressive disorder, recurrent F33.9 Hypertension I10 Hypertension type: primary hypertension LEANDRO (generalized anxiety disorder) F41.1
[2022-03-15] MEDS: azithromycin 500 MG in sodium chloride 0.9% 250 ML 250 MG IV (15:40)
[2022-03-15] MEDS: cloNIDine 0.1 mg Tablet PO ×2 (16:45→17:42)
[2022-03-16] VITALS (23 sets, daily range): BP systolic 124–183; BP diastolic 83–125; PULSE 64–114; RESP 14–27; TEMP 36.7–36.9; O2SAT 90–98
[2022-03-16] MEDS: nicotine 4 mg lozenge MUCOUS MEM ×3 (00:43→20:41)
[2022-03-16] MEDS: ipratropium-albuterol 3 mL Neb INHALATION ×4 (03:34→20:52)
[2022-03-16] MEDS: cloNIDine 0.1 mg Tablet PO ×2 (06:04→17:16)
[2022-03-16] MEDS: nicotine 14 mg Patch 1 PATCH TRANSDERMA (08:27)
[2022-03-16] MEDS: aspirin 81 mg EC Tablet PO (08:27)
[2022-03-16] MEDS: metoprolol succinate ER (24 HR) 50 mg Tablet PO (08:27)
[2022-03-16] MEDS: folic acid 5 mg/ml MDV 10mL 1 MG IVP (08:27)
[2022-03-16] MEDS: pantoprazole DR 40 mg Tablet PO (08:27)
[2022-03-16] MEDS: lisinopril 20 mg Tablet 30 MG PO (09:33)
--- NOTE | 2022-03-16 09:57 | USCV_ITS ---
Ed Sahu Age: 51 Gender: M : 1970 Exam Date: 03/16/2022 10:35 Ordering Phys: Eleni Hinds MD Technologist: Mansoor Aleman Exam Location: [facility] – [place] Indication: high blood pressure BP: 142 / 95 HR: 87 Rhythm: Sinus Technical Quality: Adequate MEASUREMENTS (Male / Female) Normal Values 2D ECHO LV Diastolic Diameter PLAX 3.4 cm 4.2 - 5.9 / 3.9 - 5.3 cm LV Systolic Diameter PLAX 2.4 cm IVS Diastolic Thickness 1.5 cm 0.6 - 1.0 / 0.6 - 0.9 cm IVS Systolic Thickness 1.6 cm LVPW Diastolic Thickness 1.3 cm 0.6 - 1.0 / 0.6 - 0.9 cm LVPW Systolic Thickness 1.4 cm LVOT Diameter 2.1 cm LV Ejection Fraction 2D Teich 60.6 % LV Ejection Fraction MOD 2C 75.1 % LV Ejection Fraction 2C AL 75.1 % LA Diameter 4.5 cm Aorta at Sinotubular Diameter 3.2 cm IVC Diameter 2.1 cm M-MODE Aortic Annulus Diameter 3.0 cm LA Ao Ratio MM 1.8 MV E Point Septal Separation 0.6 cm DOPPLER AV Peak Velocity 161.0 cm/s LVOT Peak Velocity 143.0 cm/s AV Area Cont Eq vti 3.0 cm squared AV Area Cont Eq pk 3.2 cm squared MV Area PHT 5.0 cm squared Mitral E to A Ratio 0.7 MV E' Velocity 47.5 cm/s Mitral E to MV E' Ratio 5.3 Mitral E to LV E' Lateral Ratio 8.4 Mitral E to LV E' Septal Ratio 3.8 TR Peak Velocity 298.3 cm/s TR Peak Gradient 35.6 mmHg TV Peak E Velocity 89.0 cm/s Right Atrial Pressure 3.0 mmHg Pulmonary Artery Systolic Pressu 38.6 mmHg RV Acceleration Time 0.1 s FINDINGS Left Ventricle Left ventricle is normal in size. LV systolic function is normal with EF 55 to 60%. No regional wall motion abnormalities are seen. Grade 1 diastolic dysfunction Right Ventricle Normal in size and function Right Atrium Normal in size Left Atrium Dilated Mitral Valve Structurally normal mitral valve. Mild mitral regurgitation. Aortic Valve Structurally normal aortic valve. No significant stenosis or regurgitation Tricuspid Valve Mild tricuspid regurgitation. RVSP is 35 to 40 mmHg. Mild pulmonary hypertension. Pulmonic Valve Not well visualized. Pericardium Normal Aorta Normal in size IVC Appears to be normal CONCLUSIONS LV systolic function is normal with EF 55 to 60%. Grade 1 diastolic dysfunction Left atrial dilation Mild mitral regurgitation Mild tricuspid regurgitation. Mild pulmonary hypertension No comparison studies are available Rene Jones MD (Electronically Signed) Final Date: 16 March 2022 18:22 S
[2022-03-16] MEDS: chlordiazePOXIDE 25 mg Capsule PO ×3 (10:23→20:41)
[2022-03-16] MEDS: metoprolol tartrate 25 mg Tablet 12.5 MG PO (10:23)
--- NOTE | 2022-03-16 12:07 | PC.CHAP ---
Pastoral Care Encounter/Spiritual Assessment Type of Contact [] Declined direct mail marketer visit [] Patient/Family/Request visit [] Outpatient visit [] Follow-up visit [] Physician referral [] Code/Alert [x] Routine visit [] Staff referral [] Actively dying [] Patient sleeping [] Family support [] [] Out of room [] Palliative care [] [x Receiving care in room [] Pre-surgical visit [] Trauma [] Long length of stay [x] ICU visit [] Other: Relational/Emotional Strength [] Patient feels connected with others/family/visitors/staff [] Distress [] Loneliness/isolation [] Abandonment Spirituality of Patient [] Person of Dyana [] Attends Baptism of their Dyana [] Believes in Prayer [] Reads Bible or Alevism materials [] There are Spiritual issues to be addressed Jig Operator Interventions [x] Prayer [] Active listening [] Non-anxious presence [] Spiritual/emotional support [] Crisis/trauma care [] Spiritual counseling [] Bereavement support [] Provided bereavement packet [] Provided Bible/devotional materials [] Provided toy/stuffed animal, coloring book to patient or family member [] Provided Communion [] Anointing/[place] [] Salvation [x] Completed spiritual assessment [] Other: Impact on Illness or Injury [] Angry [] Fearful [] Anxious [] Often cries [] Exhaustion [] Unable to work [] Unable to attend bahai [] Unable to walk/stand [] Unable to read [] Unable to drive [] Unable to eat/drink [] Unable to sleep [] Unable to be with family [] Patient intubated [] Other: Summary Time spent with patient
--- NOTE | 2022-03-16 12:41 | PC.NURSE ---
[facility] Patient transferred to room 252-1 via wheelchair by this nurse. Patient tolerated transfer well. Patient noted to be A&Ox4 at time of transfer.
--- NOTE | 2022-03-16 14:41 | PM.DCS ---
Discharge Providers Date of Admission: 03/14/22 19:50 Date of Discharge: March 16, 2022 Attending Provider at Admission: Margie Barrera MD Attending Provider at Discharge: Eleni Hinds MD Primary Care Provider: Oliva Granados MD Diagnoses at Discharge Discharge Diagnosis (1) Alcoholic intoxication: Status: Acute (2) COPD exacerbation: Status: Acute (3) Acute respiratory failure with hypoxemia: Status: Acute (4) Major depressive disorder, recurrent: Status: Acute (5) Hypertension: Status: Acute Qualifiers: Hypertension type: primary hypertension Qualified Code(s): I10 - Essential (primary) hypertension (6) LEANDRO (generalized anxiety disorder): Status: Acute Reason for Visit Reason for Visit: ETOH Hospital Course Hospital Course 51 year old male past medical history of COPD, anxiety, hypertension, alcohol abuse presented to the hospital with alcohol withdrawal and shortness of breath. For the withdrawal he was managed with precdex drip and phenobarbital. He was off precedex since 03/15/21 evening. By morning of 03/16 he was alert awake and oriented. No withdrawal seizures. He also received treatment for copd excarebation. Streoids were tapered to po prednisone today. Abx were discontinued as no signs of pneumonia. He c/o dyspnea over the past one month more so with exertion which could be worsening COPD vs cardiac causes- echo was ordered. Patient ws explained plan of care in detail and transfered to med/surg. He elected to leave AMA understading the risks. His htn medicatiosn were refilled at his request. Physical Exam Narrative: General: No acute distress, AO x3 HEENT: PERRLA, pupils bilaterally equal and reactive, pallors not present Chest: Normal vesicular breath sounds, no added sounds, equal good air entry bilaterally CVS: S1-S2 regular, no murmurs, no tachycardia, no gallops, no rubs Abdomen: Soft, nontender, no organomegaly, bowel sounds present Neuro: No focal deficits, no facial deformity, AO x3, power 5/5 in all limbs Discharge Data Studies Completed and Pending Completed Studies During Hospitalization Category Date Time Status XR chest 1V portable [id number] Stat Exams 03/14/22 15:26 Completed Pending at discharge Category Date Time Status Complete Blood Count w/Auto AM LABS Lab 03/17/22 04:00 Ordered Comprehensive Metabolic Panel AM LABS Lab 03/17/22 04:00 Ordered CV. echo complete* [id number] Routine Ultrasound 03/16/22 09:57 Taken Radiology Impressions Chest X-Ray 03/14/22 15:26 IMPRESSION: No acute findings. Laboratory Results WBC 5.3 10^3/uL (4.0-10.0) 03/15/22 06:10 RBC 4.13 10^6/uL (4.1-5.3) 03/15/22 06:10 Hgb 13.2 g/dL (11.7-16.6) 03/15/22 06:10 Hct 38.9 % (42.0-52.0) L 03/15/22 06:10 MCV 94.2 fl (80-94) H 03/15/22 06:10 MCH 32.0 pg (28.0-34.0) 03/15/22 06:10 MCHC 33.9 g/dL (30.0-36.0) 03/15/22 06:10 RDW 14.3 % (12.1-15.1) 03/15/22 06:10 Plt Count 330 10^3/cmm (130-400) 03/15/22 06:10 MPV 8.8 fL (7.4-10.4) 03/15/22 06:10 Neut % (Auto) 94.3 % 03/15/22 06:10 Lymph % (Auto) 5.1 % 03/15/22 06:10 [place] % (Auto) 0.2 % 03/15/22 06:10 Eos % (Auto) 0.0 % 03/15/22 06:10 Baso % (Auto) 0.2 % 03/15/22 06:10 Neut # (Auto) 4.97 10^3/uL (1.8-7.7) 03/15/22 06:10 Lymph # (Auto) 0.3 10^3/uL (0.8-4.8) L 03/15/22 06:10 [place] # (Auto) 0.0 10^3/uL (0.2-0.9) L 03/15/22 06:10 Eos # (Auto) 0.0 10^3/uL (0.0-0.8) 03/15/22 06:10 Baso # (Auto) 0.0 10^3/uL (0.0-0.1) 03/15/22 06:10 Nucleated RBC % (auto) 0 % 03/15/22 06:10 Nucleated RBCs # 0.0 /100WBC 03/15/22 06:10 PT 13.30 SECONDS (12.1-14.9) 03/14/22 16:05 INR 0.98 (0.8-1.2) 03/14/22 16:05 Sodium 133 mmol/L (136-145) L 03/15/22 06:10 Potassium 4.3 mmol/L (3.5-5.1) 03/15/22 06:10 Chloride 98 mmol/L (98-107) 03/15/22 06:10 Carbon Dioxide 24 mmol/L (22-29) 03/15/22 06:10 Anion Gap 15.3 (5-19) 03/15/22 06:10 BUN 5 mg/dL (6-20) L 03/15/22 06:10 Creatinine 0.5 mg/dL (0.7-1.2) L 03/15/22 06:10 GFR Calculation 175.3 mL/min (90-130) H 03/15/22 06:10 Glucose 157 mg/dL (65-115) H 03/15/22 06:10 Calculated Osmolality 277 mOsm/kg (285-295) L 03/15/22 06:10 Calcium 8.9 mg/dL (8.5-10.5) 03/15/22 06:10 Magnesium 1.6 mg/dL (1.7-2.3) L 03/15/22 06:10 Total Bilirubin 0.3 mg/dL (0.15-1.2) 03/15/22 06:10 AST 16 U/L (0-40) 03/15/22 06:10 ALT 10 U/L (0-41) 03/15/22 06:10 Alkaline Phosphatase 79 U/L (40-130) 03/15/22 06:10 NT-Pro-B Natriuret Pep 5 pg/mL (0-125) 03/14/22 16:05 Total Protein 6.8 g/dL (6.6-8.7) 03/15/22 06:10 Albumin 3.8 g/dL (3.5-5.2) 03/15/22 06:10 Globulin 3.0 g/dL (1.3-4.6) 03/15/22 06:10 Procalcitonin 0.02 ng/mL (0-0.5) 03/14/22 16:05 Urine Opiates Screen Negative ng/mL (Negative) 03/15/22 11:20 Ur Barbiturates Screen Positive ng/mL (Negative) H 03/15/22 11:20 Ur Phencyclidine Scrn Negative ng/mL (Negative) 03/15/22 11:20 Ur Amphetamines Screen Negative ng/mL (Negative) 03/15/22 11:20 U Benzodiazepines Scrn Negative ng/mL (Negative) 03/15/22 11:20 Urine Cocaine Screen Negative ng/mL (Negative) 03/15/22 11:20 U Marijuana (THC) Screen Negative ng/mL (Negative) 03/15/22 11:20 Ethyl Alcohol 317 mg/dL (0-10) H* 03/14/22 16:05 Vitals Last Vital Signs Temp 98.2 F 03/16/22 08:00 Pulse 99 03/16/22 13:50 Resp 17 03/16/22 13:40 BP 155/110 03/16/22 12:00 Pulse Ox 95 03/16/22 13:40 O2 Del Method 03/16/22 13:40 O2 Flow Rate 2 03/15/22 09:20 Discharge Plan Discharge Patient Disposition: Left Against Medical Advice Condition: Stable Prescriptions: New chlordiazepoxide HCl 25 mg Capsule 25 mg PO Q12H 5 Days Qty: 10 0RF albuterol sulfate 90 mcg/actuation HFA aerosol inhaler 1 inh inhalation Q6H PRN (Reason: shortness of breath or wheezing) Qty: 6.7 0RF Continued metoprolol succinate 50 mg tablet extended release 24 hr 50 mg PO DAILY 90 Days Qty: 90 1RF lisinopril 30 mg tablet 30 mg PO DAILY 90 Days Qty: 90 1RF No Action fluticasone propionate 50 mcg/actuation spray,suspension 1 spray intranasal Q12H Qty: 15.8 5RF Rx Instructions: administer into each nostril diclofenac sodium 50 mg tablet,delayed release (DR/EC) 50 mg PO Q12H PRN (Reason: pain) 30 Days Qty: 60 5RF Rx Instructions: WITH FOOD loratadine 10 mg tablet 10 mg PO DAILY 90 Days Qty: 90 3RF fluoxetine 40 mg capsule 40 mg PO DAILY 30 Days Qty: 30 3RF mirtazapine 15 mg tablet 15 mg PO BEDTIME 30 Days Qty: 30 3RF aspirin [Adult Aspirin Regimen] 81 mg tablet,delayed release (DR/EC) 81 mg PO DAILY Qty: 30 0RF clonidine HCl 0.1 mg tablet 0.1 mg PO Q12H ondansetron 4 mg tablet,disintegrating 4 mg PO Q8H PRN (Reason: Nausea And Vomiting) Referrals: Oliva Granados MD [Primary Care Provider] - 1-3 days Discharge Diet: Advance as tolerated Discharge Activity: Resume usual activity Patient Instructions: COPD (Chronic Obstructive Pulmonary Disease) (ED), Alcohol Intoxication (ED), Opioid Safety Discharge Attestations Time Spent in Discharge Care*: other Quality Metrics Clinical Quality Measures [ No reported AMI, CVA or VTE this stay] Coding Level of Care Code Acute [facility] FW DC note Diagnoses Alcoholic intoxication F10.929 COPD exacerbation J44.1 Acute respiratory failure with hypoxemia J96.01 Major depressive disorder, recurrent F33.9 Hypertension I10 Hypertension type: primary hypertension LEANDRO (generalized anxiety disorder) F41.1
--- NOTE | 2022-03-16 19:48 | PC.NURSE ---
Maurilio ripped off his Nicotiene Patch stating it doesn't work. He is asking for Elke Vitale notified.
[2022-03-16] MEDS: mirtazapine 15 mg Tablet PO (20:41)
[2022-03-16] MEDS: enoxaparin 40 mg/0.4 mL Syringe SUBCUT (20:41)
[2022-03-17] VITALS (8 sets, daily range): BP systolic 139–177; BP diastolic 71–117; PULSE 60–85; RESP 15–17; TEMP 36.6–36.8; O2SAT 92–97
[2022-03-17] MEDS: nicotine 4 mg lozenge MUCOUS MEM (02:48)
[2022-03-17] MEDS: chlordiazePOXIDE 25 mg Capsule PO ×2 (02:48→10:54)
[2022-03-17 05:51] LABS: Basophils % 0.5 %; Eosinophils % 0.2 %; Hematocrit 40.3 % (42.0-52.0); Hemoglobin 12.8 g/dL (11.7-16.6); Lymphocytes # 1.9 10^3/uL (0.8-4.8); Lymphocytes % 30.2 %; Mean Corpuscular HGB Conc 31.8 g/dL (30.0-36.0); Mean Corpuscular Hemoglobin 31.7 pg (28.0-34.0); Mean Corpuscular Volume 99.8 fl (80-94); Mean Platelet Volume 9.7 fL (7.4-10.4); Monocytes # 0.3 10^3/uL (0.2-0.9); Monocytes % 5.4 %; Neutrophils % 63.4 %; Nucleated Red Blood Cells % 0 %; Platelet Count 251 10^3/cmm (130-400); Red Blood Count 4.04 10^6/uL (4.1-5.3); White Blood Count 6.3 10^3/uL (4.0-10.0)
[2022-03-17 06:29] LABS: Alanine Aminotransferase 10 U/L (0-41); Albumin Level 3.4 g/dL (3.5-5.2); Alkaline Phosphatase 71 U/L (40-130); Anion Gap 9.9 (5-19); Aspartate Amino Transferase 18 U/L (0-40); Blood Urea Nitrogen 6 mg/dL (6-20); Calcium 8.9 mg/dL (8.5-10.5); Carbon Dioxide 31 mmol/L (22-29); Chloride 104 mmol/L (98-107); Creatinine Clr Calc Pharmacy 149.1817; Globulin 2.7 g/dL (1.3-4.6); Glomerular Filtration Rate 118.9 mL/min (90-130); Glucose 83 mg/dL (65-115); Osmolality Calculated 289 mOsm/kg (285-295); Potassium 3.9 mmol/L (3.5-5.1); Sodium 141 mmol/L (136-145); Total Bilirubin 0.3 mg/dL (0.15-1.2); Total Protein 6.1 g/dL (6.6-8.7)
--- NOTE | 2022-03-17 07:15 | PC.NURSE ---
Elevated BP: Notified Dr. Hinds of elevated bp of 177/110. Physician acknowledged at [id number]
[2022-03-17] MEDS: ipratropium-albuterol 3 mL Neb INHALATION (08:08)
[2022-03-17] MEDS: predniSONE 20 mg Tablet 40 MG PO (08:30)
[2022-03-17] MEDS: thiamine 100 mg Tablet PO (08:30)
[2022-03-17] MEDS: metoprolol succinate ER (24 HR) 50 mg Tablet 75 MG PO (08:31)
[2022-03-17] MEDS: aspirin 81 mg EC Tablet PO (08:32)
[2022-03-17] MEDS: multivitamin therapeutic Tablet 1 TAB PO (08:32)
[2022-03-17] MEDS: lisinopril 20 mg Tablet 40 MG PO (08:32)
[2022-03-17] MEDS: folic acid 1 mg Tablet PO (08:32)
[2022-03-17] MEDS: pantoprazole DR 40 mg Tablet PO (08:32)
[2022-03-17] MEDS: cloNIDine 0.1 mg Tablet PO (08:32)
--- NOTE | 2022-03-17 09:28 | PM.DCS ---
Discharge Providers Date of Admission: 03/14/22 19:50 Date of Discharge: March 17, 2022 Attending Provider at Admission: Margie Barrera MD Attending Provider at Discharge: Eleni Hinds MD Primary Care Provider: Oliva Granados MD Diagnoses at Discharge Discharge Diagnosis (1) Alcoholic intoxication: Status: Acute (2) COPD exacerbation: Status: Acute (3) Acute respiratory failure with hypoxemia: Status: Acute (4) Major depressive disorder, recurrent: Status: Acute (5) Hypertension: Status: Acute Qualifiers: Hypertension type: primary hypertension Qualified Code(s): I10 - Essential (primary) hypertension (6) LEANDRO (generalized anxiety disorder): Status: Acute Reason for Visit Reason for Visit: ETOH Hospital Course Hospital Course 51 year old male past medical history of COPD, anxiety, hypertension, alcohol abuse presented to the hospital with alcohol withdrawal and shortness of breath. For the withdrawal he was managed with precdex drip and phenobarbital. He was off precedex since 03/15/21 evening. By morning of 03/16 he was alert awake and oriented. No withdrawal seizures. He also received treatment for copd excarebation. Streoids were tapered to po prednisone.. Abx were discontinued as no signs of pneumonia. He c/o dyspnea over the past one month more so with exertion which could be worsening COPD vs cardiac causes- echo was ordered. Results are currently pending. He is chest pain free. EKG does not show any acute ST-T wave changes. Inhalers were added at discharge due to suspected COPD given h/o chronic smoking. encouraged to follow up with his PCP and consider PFTs as outpatient. Lisniopril dose was increased to 40mg due to systolic BP ranging 160-170. Metoprolol dose increased to 75 mg daily due to tachycardia 100-120 bpm. CIWA score zero at discharge. Physical Exam Narrative: General: No acute distress, AO x3 HEENT: PERRLA, pupils bilaterally equal and reactive, pallors not present Chest: Normal vesicular breath sounds, no added sounds, equal good air entry bilaterally CVS: S1-S2 regular, no murmurs, no tachycardia, no gallops, no rubs Abdomen: Soft, nontender, no organomegaly, bowel sounds present Neuro: No focal deficits, no facial deformity, AO x3, power 5/5 in all limbs Discharge Data Studies Completed and Pending Completed Studies During Hospitalization Category Date Time Status XR chest 1V portable [id number] Stat Exams 03/14/22 15:26 Completed CV. echo complete* [id number] Routine Ultrasound 03/16/22 09:57 Completed Radiology Impressions Chest X-Ray 03/14/22 15:26 IMPRESSION: No acute findings. Laboratory Results WBC 6.3 10^3/uL (4.0-10.0) 03/17/22 05:08 RBC 4.04 10^6/uL (4.1-5.3) L 03/17/22 05:08 Hgb 12.8 g/dL (11.7-16.6) 03/17/22 05:08 Hct 40.3 % (42.0-52.0) L 03/17/22 05:08 MCV 99.8 fl (80-94) H 03/17/22 05:08 MCH 31.7 pg (28.0-34.0) 03/17/22 05:08 MCHC 31.8 g/dL (30.0-36.0) 03/17/22 05:08 RDW 15.0 % (12.1-15.1) 03/17/22 05:08 Plt Count 251 10^3/cmm (130-400) 03/17/22 05:08 MPV 9.7 fL (7.4-10.4) 03/17/22 05:08 Neut % (Auto) 63.4 % 03/17/22 05:08 Lymph % (Auto) 30.2 % 03/17/22 05:08 [place] % (Auto) 5.4 % 03/17/22 05:08 Eos % (Auto) 0.2 % 03/17/22 05:08 Baso % (Auto) 0.5 % 03/17/22 05:08 Neut # (Auto) 4.00 10^3/uL (1.8-7.7) 03/17/22 05:08 Lymph # (Auto) 1.9 10^3/uL (0.8-4.8) 03/17/22 05:08 [place] # (Auto) 0.3 10^3/uL (0.2-0.9) 03/17/22 05:08 Eos # (Auto) 0.0 10^3/uL (0.0-0.8) 03/17/22 05:08 Baso # (Auto) 0.0 10^3/uL (0.0-0.1) 03/17/22 05:08 Nucleated RBC % (auto) 0 % 03/17/22 05:08 Nucleated RBCs # 0.0 /100WBC 03/17/22 05:08 PT 13.30 SECONDS (12.1-14.9) 03/14/22 16:05 INR 0.98 (0.8-1.2) 03/14/22 16:05 Sodium 141 mmol/L (136-145) 03/17/22 05:08 Potassium 3.9 mmol/L (3.5-5.1) 03/17/22 05:08 Chloride 104 mmol/L (98-107) 03/17/22 05:08 Carbon Dioxide 31 mmol/L (22-29) H 03/17/22 05:08 Anion Gap 9.9 (5-19) 03/17/22 05:08 BUN 6 mg/dL (6-20) 03/17/22 05:08 Creatinine 0.7 mg/dL (0.7-1.2) 03/17/22 05:08 GFR Calculation 118.9 mL/min (90-130) 03/17/22 05:08 Glucose 83 mg/dL (65-115) 03/17/22 05:08 Calculated Osmolality 289 mOsm/kg (285-295) 03/17/22 05:08 Calcium 8.9 mg/dL (8.5-10.5) 03/17/22 05:08 Magnesium 1.6 mg/dL (1.7-2.3) L 03/15/22 06:10 Total Bilirubin 0.3 mg/dL (0.15-1.2) 03/17/22 05:08 AST 18 U/L (0-40) 03/17/22 05:08 ALT 10 U/L (0-41) 03/17/22 05:08 Alkaline Phosphatase 71 U/L (40-130) 03/17/22 05:08 NT-Pro-B Natriuret Pep 5 pg/mL (0-125) 03/14/22 16:05 Total Protein 6.1 g/dL (6.6-8.7) L 03/17/22 05:08 Albumin 3.4 g/dL (3.5-5.2) L 03/17/22 05:08 Globulin 2.7 g/dL (1.3-4.6) 03/17/22 05:08 Procalcitonin 0.02 ng/mL (0-0.5) 03/14/22 16:05 Urine Opiates Screen Negative ng/mL (Negative) 03/15/22 11:20 Ur Barbiturates Screen Positive ng/mL (Negative) H 03/15/22 11:20 Ur Phencyclidine Scrn Negative ng/mL (Negative) 03/15/22 11:20 Ur Amphetamines Screen Negative ng/mL (Negative) 03/15/22 11:20 U Benzodiazepines Scrn Negative ng/mL (Negative) 03/15/22 11:20 Urine Cocaine Screen Negative ng/mL (Negative) 03/15/22 11:20 U Marijuana (THC) Screen Negative ng/mL (Negative) 03/15/22 11:20 Ethyl Alcohol 317 mg/dL (0-10) H* 03/14/22 16:05 Vitals Last Vital Signs Temp 98.3 F 03/17/22 07:36 Pulse 81 03/17/22 08:09 Resp 16 03/17/22 08:09 BP 173/117 03/17/22 08:32 Pulse Ox 93 03/17/22 08:09 O2 Del Method 03/17/22 08:09 O2 Flow Rate 2 03/15/22 09:20 Discharge Plan Discharge Patient Disposition: Home Condition: Stable Prescriptions: New chlordiazepoxide HCl 25 mg Capsule 25 mg PO Q12H 5 Days Qty: 10 0RF albuterol sulfate 90 mcg/actuation HFA aerosol inhaler 1 inh inhalation Q6H PRN (Reason: shortness of breath or wheezing) Qty: 6.7 0RF metoprolol succinate 50 mg Tablet Extended Release 24 Hr 75 mg PO DAILY 30 Days Qty: 30 0RF lisinopril 20 mg Tablet 40 mg PO DAILY 30 Days Qty: 30 0RF Vitamin B-1 (mononitrate) 100 mg Tablet 100 mg PO DAILY Qty: 0 0RF Continued fluticasone propionate 50 mcg/actuation spray,suspension 1 spray intranasal Q12H Qty: 15.8 5RF Rx Instructions: administer into each nostril diclofenac sodium 50 mg tablet,delayed release (DR/EC) 50 mg PO Q12H PRN (Reason: pain) 30 Days Qty: 60 5RF Rx Instructions: WITH FOOD loratadine 10 mg tablet 10 mg PO DAILY 90 Days Qty: 90 3RF fluoxetine 40 mg capsule 40 mg PO DAILY 30 Days Qty: 30 3RF mirtazapine 15 mg tablet 15 mg PO BEDTIME 30 Days Qty: 30 3RF aspirin [Adult Aspirin Regimen] 81 mg tablet,delayed release (DR/EC) 81 mg PO DAILY Qty: 30 0RF clonidine HCl 0.1 mg tablet 0.1 mg PO Q12H ondansetron 4 mg tablet,disintegrating 4 mg PO Q8H PRN (Reason: Nausea And Vomiting) Discontinued lisinopril 30 mg tablet 30 mg PO DAILY 90 Days Qty: 90 1RF metoprolol succinate 50 mg tablet extended release 24 hr 50 mg PO DAILY 90 Days Qty: 90 1RF Discharge Orders: Discharge Order (Routine); Ordered 03/17/22 Ordered By: Eleni Hinds Referrals: Oliva Granados MD [Primary Care Provider] - 1-3 days Discharge Diet: Advance as tolerated Discharge Activity: Resume usual activity Patient Instructions: COPD (Chronic Obstructive Pulmonary Disease) (ED), Alcohol Intoxication (ED), Opioid Safety Discharge Attestations Time Spent in Discharge Care*: greater than 30 min Quality Metrics Clinical Quality Measures [ No reported AMI, CVA or VTE this stay] Coding Level of Care Code Acute [facility] note Diagnoses Alcoholic intoxication F10.929 COPD exacerbation J44.1 Acute respiratory failure with hypoxemia J96.01 Major depressive disorder, recurrent F33.9 Hypertension I10 Hypertension type: primary hypertension LEANDRO (generalized anxiety disorder) F41.1
== END 2022-03-17 11:06 | disposition home or self-care (01) | DRG 896 ==
LOC: ER 19:50 → ICU 20:42 → MEDSURG 21:24 → ICU 03-15 00:18 → MEDSURG 03-16 12:27
PROVIDERS: Admitting Provider Internal Medicine; Emergency Provider Emergency Medicine; PCP Family Medicine; Visit Provider Student in an Organized Health Care Education/Training Program
DX: F10.129 Alcohol abuse with intoxication, unspecified (principal); J96.01 Acute respiratory failure with hypoxia; J44.1 Chronic obstructive pulmonary disease with (acute) exacerbation; F33.9 Major depressive disorder, recurrent, unspecified; Y90.8 Blood alcohol level of 240 mg/100 ml or more; F10.139 Alcohol abuse with withdrawal, unspecified; I10 Essential (primary) hypertension; F41.1 Generalized anxiety disorder; Z79.82 Long term (current) use of aspirin
CPT/HCPCS: 36415; 71045; 80053; 80306; 80307; 83735; 83880; 84145; 85025; 85610; 93005; 93306; 94640; 96361; 96372; 96374; 96375; 99285; J0360; J0456; J1650; J2405; J2560; J2930; J3411; J3490; J7030; J7050; J7512; J7613; J7644

== ENCOUNTER 2022-03-21 04:52 | Inpatient (IN) | payer MEDICAID, SELFPAY ==
[2022-03-21] VITALS (91 sets, daily range): BP systolic 89–169; BP diastolic 58–123; PULSE 70–111; RESP 12–28; TEMP 36.1–36.9; O2SAT 84–100; BMI 26.3; BMI 27.3
--- NOTE | 2022-03-21 04:57 | XRR_ITS ---
PROCEDURE INFORMATION: Exam: XR Chest Exam date and time: 03/21/2022 5:12 AM Age: 51 years old Clinical indication: Other: Gi bleed TECHNIQUE: Imaging protocol: Radiologic exam of the chest. Views: 1 view. COMPARISON: CR (CHEST, ) 03/14/2022 3:39 PM FINDINGS: Lungs: Unremarkable. No consolidation. Pleural spaces: Unremarkable. No pleural effusion. No pneumothorax. Heart/Mediastinum: Unremarkable. No cardiomegaly. Bones/joints: Unremarkable. XR/XR chest 1V portable [id number] IMPRESSION: No acute findings.
--- NOTE | 2022-03-21 04:58 | ECG_ITS ---
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 Measurements Intervals [place] Rate: 94 P: 57 VT: 148 QRS: 52 QRSD: 82 T: 56 QT: 355 QTc: 445 Interpretive Statements SINUS RHYTHM Compared to ECG 03/14/2022 15:33:49 Sinus tachycardia no longer present Electronically Signed On 03-21-2022 14:25:27 MANAGER OPERATING by Amanuel Montaño M.D. [email or web address] [id number]
[2022-03-21] MEDS: ondansetron 2 mg/ML SDV 2 mL 4 MG IVP (05:06)
[2022-03-21 05:07] LABS: Basophils # 0.1 10^3/uL (0.0-0.1); Basophils % 0.9 %; Eosinophils # 0.1 10^3/uL (0.0-0.8); Eosinophils % 1.7 %; Hematocrit 22.3 % (42.0-52.0); Hemoglobin 7.2 g/dL (11.7-16.6); Lymphocytes # 2.3 10^3/uL (0.8-4.8); Lymphocytes % 35.4 %; Mean Corpuscular HGB Conc 32.3 g/dL (30.0-36.0); Mean Corpuscular Hemoglobin 32.1 pg (28.0-34.0); Mean Corpuscular Volume 99.6 fl (80-94); Mean Platelet Volume 11.2 fL (7.4-10.4); Monocytes # 0.6 10^3/uL (0.2-0.9); Monocytes % 8.8 %; Neutrophils # 3.42 10^3/uL (1.8-7.7); Neutrophils % 52.9 %; Nucleated Red Blood Cells % 0 %; Platelet Count 204 10^3/cmm (130-400); Red Blood Count 2.24 10^6/uL (4.1-5.3); Red Cell Distribution Width 14.6 % (12.1-15.1); White Blood Count 6.5 10^3/uL (4.0-10.0)
[2022-03-21] MEDS: sodium chloride 0.9% 1,000 ML 999 ML IV (05:07)
[2022-03-21] MEDS: pantoprazole 40 mg SDV 80 MG IVP (05:07)
--- NOTE | 2022-03-21 05:07 | ED_ITS ---
HPI - GI Bleed General: Chief complaint: GI Bleed Stated complaint: GI bleed Time Seen by Provider: 03/21/22 04:52 Source: patient and EMS Mode of arrival: EMS Limitations: no limitations History of Present Illness: 51-year-old male states he has been having black tarry stool over the last 2 days he denies any vomiting denies any vomiting blood he had some slight abdominal pain. He has no history of GI bleeds no history of esophageal varices he states that tonight he started to feel very weak and had a syncopal event when he stood up per EMS he has been hypotensive into the 60s and 70s he is pale and diaphoretic here. Associated symptoms: Reports syncope; Denies easy bruising, headache(s) or rash Review of Systems Const: Reports: fatigue Eyes: Denies: blurry vision or eye discomfort ENMT: Denies: throat pain or dental pain Card: Reports: syncope Resp: Denies: dyspnea GI: Reports: hematochezia and melena : Denies: dysuria Musc: Denies: neck pain or back pain Skin/Breast: Denies: rash Neuro: Denies: headache(s) Psych: Denies: depression Jagdish/Lymph: Denies: easy bruising All/Imm: Denies: urticaria PFSH ED PFSH: Medical History LEANDRO (generalized anxiety disorder) History of alcoholism Hypertension Insomnia Problems related to lack of adequate sleep Psychiatric care Seasonal allergies Surgical History H/O hernia repair Family History Family/Other Hypertension Mother Muscular dystrophy Father Myocardial infarct Social History Smoking and tobacco status: current every day smoker cigarettes Packs smoked per day: 1 Quit status (tobacco): not considering quitting Second hand smoke exposure: Yes Alcohol intake: current Alcohol intake frequency: 3 or more drinks per day Desire information about substance/drug rehabilitation?: No Caregiver/support person: Yes Lives independently: No Household members: spouse History of recent travel: No Current gender identity: Male Physical Exam Const: COMMON NORMALS: patient oriented x3 GENERAL APPEARANCE: ill appearing and diaphoretic HENMT: COMMON NORMALS: normocephalic and atraumatic HEAD & SCALP: normocephalic and atraumatic Eye: COMMON NORMALS: Equal, round and reactive pupils present and EOMs intact bilaterally PUPIL: Yes Equal, round and reactive pupils present Neck/C-Spine: COMMON NORMALS: full ROM and supple Chest: COMMONS NORMALS: normal inspection of the chest and normal palpation of entire chest wall Resp: COMMON NORMALS: normal respiratory effort, No retractions, No use of accessory muscles and clear to auscultation bilaterally AUSCULTATION: clear to auscultation bilaterally Cardio: COMMON NORMALS: regular rate, regular rhythm and No murmurs present ( Cardio) RATE: regular rate RHYTHM: regular rhythm GI: COMMON NORMALS: Normal to inspection, nondistended, normoactive bowel sounds present, Soft to palpation, non-tender and no masses PALPATION: Yes Soft to palpation OTHER: Rectal exam shows black tarry stool Hemoccult positive Extremity: COMMON NORMALS: normal to inspection and full ROM Neuro: COMMON NORMALS: patient oriented x3, moves all extremities and no focal motor deficits Psych: COMMON NORMALS: mental status grossly normal, Normal thought process present and cooperative THOUGHT PROCESS: Normal thought process present Skin: COMMON NORMALS: no rashes or lesions noted and no wounds GENERAL SKIN EXAM: no rashes or lesions noted Course Vital Signs: Vital signs: Vital Signs Temperature 97.3 F L 03/21/22 05:29 Pulse Rate 92 03/21/22 05:29 Respiratory Rate 21 H 03/21/22 05:29 Blood Pressure 99/68 03/21/22 05:29 Pulse Oximetry 91 03/21/22 04:52 Oxygen Delivery Me thod 03/21/22 04:52 MDM - GI Bleed Medical Decision Making Patient presents with upper GI bleed he was hypotensive originally his blood pressure here is improved to 101/59 heart rate 88 I spoke to the hospitalist along with surgeon will admit to ICU at this time patient did get a transfusion here of uncrossed blood as he was hypotensive. Lab Data 03/21/22 04:09 03/21/22 04:09 Laboratory Results WBC 6.5 10^3/uL (4.0-10.0) 03/21/22 04:09 RBC 2.24 10^6/uL (4.1-5.3) L 03/21/22 04:09 Hgb 7.2 g/dL (11.7-16.6) L 03/21/22 04:09 Hct 22.3 % (42.0-52.0) L 03/21/22 04:09 MCV 99.6 fl (80-94) H 03/21/22 04:09 MCH 32.1 pg (28.0-34.0) 03/21/22 04:09 MCHC 32.3 g/dL (30.0-36.0) 03/21/22 04:09 RDW 14.6 % (12.1-15.1) 03/21/22 04:09 Plt Count 204 10^3/cmm (130-400) 03/21/22 04:09 MPV 11.2 fL (7.4-10.4) H 03/21/22 04:09 Neut % (Auto) 52.9 % 03/21/22 04:09 Lymph % (Auto) 35.4 % 03/21/22 04:09 [place] % (Auto) 8.8 % 03/21/22 04:09 Eos % (Auto) 1.7 % 03/21/22 04:09 Baso % (Auto) 0.9 % 03/21/22 04:09 Neut # (Auto) 3.42 10^3/uL (1.8-7.7) 03/21/22 04:09 Lymph # (Auto) 2.3 10^3/uL (0.8-4.8) 03/21/22 04:09 [place] # (Auto) 0.6 10^3/uL (0.2-0.9) 03/21/22 04:09 Eos # (Auto) 0.1 10^3/uL (0.0-0.8) 03/21/22 04:09 Baso # (Auto) 0.1 10^3/uL (0.0-0.1) 03/21/22 04:09 Nucleated RBC % (auto) 0 % 03/21/22 04:09 Nucleated RBCs # 0.0 /100WBC 03/21/22 04:09 PT 13.80 SECONDS (12.1-14.9) 03/21/22 04:09 INR 1.03 (0.8-1.2) 03/21/22 04:09 Sodium 137 mmol/L (136-145) 03/21/22 04:09 Potassium 4.3 mmol/L (3.5-5.1) 03/21/22 04:09 Chloride 101 mmol/L (98-107) 03/21/22 04:09 Carbon Dioxide 25 mmol/L (22-29) 03/21/22 04:09 Anion Gap 15.3 (5-19) 03/21/22 04:09 BUN 39 mg/dL (6-20) H 03/21/22 04:09 Creatinine 0.8 mg/dL (0.7-1.2) 03/21/22 04:09 GFR Calculation 101.9 mL/min (90-130) 03/21/22 04:09 Glucose 106 mg/dL (65-115) 03/21/22 04:09 Calculated Osmolality 294 mOsm/kg (285-295) 03/21/22 04:09 Lactate 1.2 mmol/L (0.5-2.2) 03/21/22 05:00 Calcium 8.3 mg/dL (8.5-10.5) L 03/21/22 04:09 Total Bilirubin 0.2 mg/dL (0.15-1.2) 03/21/22 04:09 AST 12 U/L (0-40) 03/21/22 04:09 ALT 10 U/L (0-41) 03/21/22 04:09 Alkaline Phosphatase 46 U/L (40-130) 03/21/22 04:09 Total Protein 5.6 g/dL (6.6-8.7) L 03/21/22 04:09 Albumin 3.4 g/dL (3.5-5.2) L 03/21/22 04:09 Globulin 2.2 g/dL (1.3-4.6) 03/21/22 04:09 EKG Data EKG 1: I personally reviewed and interpreted this EKG as follows: EKG interpretation date: 03/21/22 EKG interpretation time: 05:10 Interpretation: nsr hr [address] or t wave abnormalities qrs 82 qtc 407 Critical Care Time Critical Care Time: Critical Care Time: Yes Total Critical Care Time: 40 Attestation: The high probability of a clinically significant, sudden or life threatening deterioration of the patient's gi system(s) required my full and direct attention, intervention and personal management. The critical care time is as shown. This time is in addition to time spent performing any reported procedures but includes the following: [x] Data and vital sign review and interpretation [x] Patient assessment, examination and intervention [x] Documentation [x] Medication orders and management Discharge Plan Discharge Patient Disposition: Admitted As Inpatient Clinical Impression: Upper gastrointestinal hemorrhage Condition: Stable Coding Level of Care Code ED [employer] Inspector for Donnieg Fwd Exam Comprehensive
[2022-03-21 05:15] LABS: INR 1.03 (0.8-1.2)
[2022-03-21] MEDS: pantoprazole 40 MG in sodium chloride 0.9% (plus) 100 ML 20 MG IV (05:15)
[2022-03-21 05:21] LABS: Alanine Aminotransferase 10 U/L (0-41); Albumin Level 3.4 g/dL (3.5-5.2); Alkaline Phosphatase 46 U/L (40-130); Anion Gap 15.3 (5-19); Aspartate Amino Transferase 12 U/L (0-40); Blood Urea Nitrogen 39 mg/dL (6-20); Calcium 8.3 mg/dL (8.5-10.5); Carbon Dioxide 25 mmol/L (22-29); Chloride 101 mmol/L (98-107); Creatinine Clr Calc Pharmacy 126.3287; Globulin 2.2 g/dL (1.3-4.6); Glomerular Filtration Rate 101.9 mL/min (90-130); Glucose 106 mg/dL (65-115); Osmolality Calculated 294 mOsm/kg (285-295); Potassium 4.3 mmol/L (3.5-5.1); Sodium 137 mmol/L (136-145); Total Bilirubin 0.2 mg/dL (0.15-1.2); Total Protein 5.6 g/dL (6.6-8.7)
[2022-03-21 05:25] LABS: Lactate (Lactic Acid level) 1.2 mmol/L (0.5-2.2)
--- NOTE | 2022-03-21 06:02 | PM.HP ---
Providers/Chief Complaint Chief Complaint: GI bleed History of Present Illness Ed Sahu is a 51 year old male with a past medical history of alcoholism, alcohol withdrawal, COPD, anxiety, hypertension who presents [facility] due to complaints of black tarry stools and bloody stools, lightheadedness and dizziness. Currently patient is alert oriented x3, following all commands, blood pressures on admissions were soft, now 102/79 heart rate 91, respiratory rate 20, temperature 97.8, O2 sat 100% on room air, no episodes of hematemesis or hemoptysis or hematochezia or blood vessels in the emergency room. He tells me that over the last few days he has been noticing black tarry stools, denies vomiting any blood, he tells me that this evening, he had increased episodes of black tarry stools, with bloody stools, he felt weak. There was a reported syncopal event when he stood up as per EMS, patient does not have recollection of this, he was hypotensive blood pressures in the 60s, pale, diaphoretic. Hemoglobin 7.2, he is receiving 1 unit PRBC, he is adamant that his last drink of alcohol was roughly a week ago. He denies any naproxen or ibuprofen use. Denies a history of GI bleeds in the past. Review of Systems Const: Denies: fever(s) Eyes: Denies: change in vision Card: Denies: chest pain Resp: Denies: dyspnea GI: Denies: abdominal pain or nausea : Denies: flank pain or difficulty urinating Musc: Denies: back pain Neuro: Reports: dizziness Medications/Allergies Home Medications Medication Instructions Recorded Confirmed Last Taken Type aspirin 81 mg tablet,delayed 81 mg PO DAILY #30 tabs 05/03/19 03/18/22 06/27/21 Rx release (Adult Aspirin Regimen) diclofenac sodium 50 mg 50 mg PO Q12H PRN pain 30 days #60 12/02/21 03/18/22 Unknown Rx tablet,delayed release tabs fluticasone propionate 50 1 spray intranasal Q12H #15.8 mL 12/02/21 03/18/22 Unknown Rx mcg/actuation nasal spray,suspension loratadine 10 mg tablet 10 mg PO DAILY 90 days #90 tabs 12/02/21 03/18/22 Unknown Rx fluoxetine 40 mg capsule 40 mg PO DAILY 30 days #30 caps 01/21/22 03/18/22 Unknown Rx mirtazapine 15 mg tablet 15 mg PO BEDTIME 30 days #30 tabs 01/21/22 03/18/22 Unknown Rx clonidine HCl 0.1 mg tablet 0.1 mg PO Q12H for blood pressure 03/15/22 03/18/22 Unknown History greater than 140/90 ondansetron 4 mg disintegrating 4 mg PO Q8H PRN Nausea And Vomiting 03/15/22 03/18/22 Unknown History tablet albuterol sulfate 90 mcg/actuation 1 inh inhalation Q6H PRN shortness 03/16/22 03/18/22 Unknown Rx aerosol inhaler of breath or wheezing #6.7 grams lisinopril 20 mg tablet 40 mg PO DAILY 30 days #30 tabs 03/17/22 03/18/22 Unknown Rx metoprolol succinate 50 mg 75 mg PO DAILY 30 days #30 tabs 03/17/22 03/18/22 Unknown Rx tablet,extended release 24 hr thiamine mononitrate (vit B1) 100 100 mg PO DAILY #0 tabs 03/17/22 03/18/22 Unknown Rx mg tablet (Vitamin B-1 (mononitrate)) Allergies Allergy/AdvReac Type Severity Reaction Status Date / Time acetaminophen [From [place]] Allergy Unknown ALGY-Rash Verified 03/04/22 06:59 hydrocodone [From [place]] Allergy Unknown ALGY-Rash Verified 03/04/22 06:59 Penicillins Allergy ALGY-Swell Verified 03/04/22 06:59 Lip/Tongue/Throat PFSH Acute PFSH: Medical History LEANDRO (generalized anxiety disorder) History of alcoholism Hypertension Insomnia Problems related to lack of adequate sleep Psychiatric care Seasonal allergies Surgical History H/O hernia repair Family History Family/Other Hypertension Mother Muscular dystrophy Father Myocardial infarct Social History Smoking and tobacco status: current every day smoker cigarettes Packs smoked per day: 1 Quit status (tobacco): not considering quitting Second hand smoke exposure: Yes Alcohol intake: current Alcohol intake frequency: 3 or more drinks per day Desire information about substance/drug rehabilitation?: No Caregiver/support person: Yes Lives independently: No Household members: spouse History of recent travel: No Current gender identity: Male Vitals/I&O/Wt Last Vital Signs Temp 97.8 F 03/21/22 05:58 Pulse 91 03/21/22 05:58 Resp 20 H 03/21/22 05:58 BP 102/79 03/21/22 05:58 Pulse Ox 100 03/21/22 05:58 O2 Del Method 03/21/22 04:52 03/20/22 03/20/22 03/21/22 14:59 22:59 06:59 Intake Total 0 / 0 Balance 0 / 0 Weight last 48 hrs Weight 87.997 kg Physical Exam Const: COMMON NORMALS: no acute distress and patient oriented x3 OTHER: Pale appearing HENMT: COMMON NORMALS: normocephalic HEAD & SCALP: normocephalic Eye: COMMON NORMALS: Equal, round and reactive pupils present Neck/C-Spine: COMMON NORMALS: no JVD Lymph: LYMPHATIC: no lymphadenopathy noted Resp: COMMON NORMALS: normal respiratory effort, No use of accessory muscles and clear to auscultation bilaterally AUSCULTATION: clear to auscultation bilaterally Cardio: COMMON NORMALS: no JVD, regular rate, regular rhythm, S1 normal heart sound present and S2 normal heart sound present RATE: regular rate RHYTHM: regular rhythm HEART SOUNDS: S1 normal heart sound present and S2 normal heart sound present GI: COMMON NORMALS: Normal to inspection, nondistended, normoactive bowel sounds present, Soft to palpation and non-tender PALPATION: Yes Soft to palpation Extremity: COMMON NORMALS: no calf tenderness and no pedal edema Neuro: COMMON NORMALS: patient oriented x3, CN's II-XII intact bilaterally and moves all extremities Psych: COMMON NORMALS: mental status grossly normal Skin: NARRATIVE SKIN EXAM: Pale. Data 03/21/22 04:09 03/21/22 04:09 A&P Assessment and plan (1) Hemorrhagic shock: (2) Acute anemia: (3) GI bleed: (4) Goals of care, counseling/discussion: (5) Alcohol use disorder, severe, dependence: (6) Hypertension: Qualifiers: Hypertension type: primary hypertension Qualified Code(s): I10 - Essential (primary) hypertension (7) LEANDRO (generalized anxiety disorder): (8) Insomnia: Qualifiers: Insomnia type: alcohol-induced Qualified Code(s): F10.982 - Alcohol use, unspecified with alcohol-induced sleep disorder Plan GI bleed, hemorrhagic shock, acute anemia -Upper versus lower -Elevated BUN, has complaints of black tarry stools -But also does have complaints of bloody stools -Had a syncopal episode witnessed by EMS -Hypotensive -Currently blood pressures improved -Hemoglobin 7.2 -Alert oriented x3, normotensive, following commands, Plan -Admit to ICU -Keep n.p.o. -General surgery consulted by ER provider, hopefully can have an EGD soon -Received Protonix bolus, start Protonix 40 IV twice daily -Carafate 4 times daily -He denies alcohol consumption in the last week, has a history of alcoholism in the past, no LFT abnormalities, no INR abnormalities, no platelet abnormalities thus the likelihood of esophageal variceal bleed is unlikely however I am still concerned given his risk factors, however given his hemorrhagic shock we will start him on octreotide for now -Will receive 1 unit PRBC -Prepare 2 more units -Adequately resuscitate, give another 500 cc bolus, normal saline 125 cc -Goals of care discussion, given patient's sudden drop in hemoglobin, active bleeding, hypotension, syncopal episode this is quite concerning for severe GI bleed which is associate with increased risk of morbidity and mortality. Patient voices understanding, all questions answered, agreeable to elective intubation if required. Wants to remain a full code Attestations Medical Necessity Statement*: Patient requires hospitalization, inpatient, greater than 2 midnights, for GI bleed, hemorrhagic shock, acute anemia, critical care time spent 30 minutes Critical Care Time: Critical Care Time (min): 30 Coding Level of Care Code Acute Code for Chg Fwd Diagnoses Hemorrhagic shock R57.8 Acute anemia D64.9 GI bleed K92.2 Goals of care, counseling/discussion Z71.89 Alcohol use disorder, severe, dependence F10.20 Hypertension I10 Hypertension type: primary hypertension LEANDRO (generalized anxiety disorder) F41.1 Insomnia F10.982 Insomnia type: alcohol-induced
[2022-03-21 06:21] LABS: Magnesium 2.1 mg/dL (1.7-2.3)
[2022-03-21 06:31] LABS: Thyroid Stimulating Hormone 3.56 uIU/mL (0.27-4.20)
[2022-03-21] MEDS: octreotide 500 MCG in sodium chloride 0.9% (100 ml) 100 ML 10.1 MCG IV (06:36)
--- NOTE | 2022-03-21 07:15 | PC.NURSE ---
Transfer Note Patient transferred to ICU from ER via stretcher. Handoff received from YAYA Jay. Patient oriented to environment and equipment. Covering service notified. Orders reviewed and will continue to monitor. Family and/or desk representative notified. Upon arrival patient alert/oriented x4 on 1.5LNC. Belongings include bag, shoes and shirt placed at bedside.
--- NOTE | 2022-03-21 07:15 | PC.NURSE ---
PT XFER TO ICU AT 0700. PT XFER BY THIS NURSE AND BIANCA JAVIER. IVS, OCTROTIDE DRIP, AND BLOOD TRANSFUSION INTACT. PT BELONGINGS WITH PT UPON XFER TO ICU. JAMES JAVIER OF ICU RECEIVED PT.
[2022-03-21 07:33] LABS: Folate Level 14.6 ng/mL (4.5-32.2)
--- NOTE | 2022-03-21 07:41 | ANES.PREANE2 ---
Pre-Anesthetic Assessment Height/Weight: Height 1.83 m Weight 87.997 kg Temp Pulse Resp BP Pulse Ox O2 Del Method 97.8 F 82 12 113/86 97 03/21/22 06:52 03/21/22 06:52 03/21/22 06:52 03/21/22 06:52 03/21/22 06:52 03/21/22 04:52 Operation Date: 03/21/22 08:00 Proposed Procedures p EGD(Not Applicable) - Deo Hickman DO Familial anesthetic complications: None Was Beta Stephanie taken within 24 hours: N/A Was Clonidine taken within 24 hours: N/A Last intake: > 8 hrs Social Alcohol and No tobacco EToh abuse Exam alert, oriented x 3, clear to auscultation bilaterally and regular rate & rhythm Airway Mallampati: Class III Dentition: other (No teeth) Pulmonary Chronic Obstructive Pulmonary Disease CV/HEM Anemia and Hypertension Echo 2022?CONCLUSIONS ?LV systolic function is normal with EF 55 to 60%. ?Grade 1 diastolic dysfunction ?Left atrial dilation ?Mild mitral regurgitation ?Mild tricuspid regurgitation.? Mild pulmonary hypertension ?No comparison studies are available GI GI bleed, Nausea, dry heaving, no vomiting no hematemisis Anesthetic Plan ASA status: 4 Anesthesia: MAC Risk of > 500 ml blood loss (7ml/kg in children): No Medications/Allergies Home Medications Medication Instructions Recorded Confirmed Last Taken Type aspirin 81 mg tablet,delayed 81 mg PO DAILY #30 tabs 05/03/19 03/18/22 06/27/21 Rx release (Adult Aspirin Regimen) diclofenac sodium 50 mg 50 mg PO Q12H PRN pain 30 days #60 12/02/21 03/18/22 Unknown Rx tablet,delayed release tabs fluticasone propionate 50 1 spray intranasal Q12H #15.8 mL 12/02/21 03/18/22 Unknown Rx mcg/actuation nasal spray,suspension loratadine 10 mg tablet 10 mg PO DAILY 90 days #90 tabs 12/02/21 03/18/22 Unknown Rx fluoxetine 40 mg capsule 40 mg PO DAILY 30 days #30 caps 01/21/22 03/18/22 Unknown Rx mirtazapine 15 mg tablet 15 mg PO BEDTIME 30 days #30 tabs 01/21/22 03/18/22 Unknown Rx clonidine HCl 0.1 mg tablet 0.1 mg PO Q12H for blood pressure 03/15/22 03/18/22 Unknown History greater than 140/90 ondansetron 4 mg disintegrating 4 mg PO Q8H PRN Nausea And Vomiting 03/15/22 03/18/22 Unknown History tablet albuterol sulfate 90 mcg/actuation 1 inh inhalation Q6H PRN shortness 03/16/22 03/18/22 Unknown Rx aerosol inhaler of breath or wheezing #6.7 grams lisinopril 20 mg tablet 40 mg PO DAILY 30 days #30 tabs 03/17/22 03/18/22 Unknown Rx metoprolol succinate 50 mg 75 mg PO DAILY 30 days #30 tabs 03/17/22 03/18/22 Unknown Rx tablet,extended release 24 hr thiamine mononitrate (vit B1) 100 100 mg PO DAILY #0 tabs 03/17/22 03/18/22 Unknown Rx mg tablet (Vitamin B-1 (mononitrate)) Allergies Allergy/AdvReac Type Severity Reaction Status Date / Time acetaminophen [From [place]] Allergy Unknown ALGY-Rash Verified 03/04/22 06:59 hydrocodone [From [place]] Allergy Unknown ALGY-Rash Verified 03/04/22 06:59 Penicillins Allergy ALGY-Swell Verified 03/04/22 06:59 Lip/Tongue/Throat Current Medications Generic Name Dose Route Start Last Admin Trade Name Freq PRN Reason Stop Dose Admin Octreotide Acetate 500 mcg/ 101 mls @ 10.1 mls/hr 03/21/22 06:15 03/21/22 06:36 Sodium Chloride IV 50 mcg/hr .Q10H ROBBIN 10.1 mls/hr Administration 50 MCG/HR PFSH Anesthesia Medical History LEANDRO (generalized anxiety disorder) History of alcoholism Hypertension Insomnia Problems related to lack of adequate sleep Psychiatric care Seasonal allergies Surgical History H/O hernia repair Family History Family/Other Hypertension Mother Muscular dystrophy Father Myocardial infarct Social History Smoking and tobacco status: current every day smoker cigarettes Packs smoked per day: 1 Quit status (tobacco): not considering quitting Second hand smoke exposure: Yes Alcohol intake: current Alcohol intake frequency: 3 or more drinks per day Desire information about substance/drug rehabilitation?: No Caregiver/support person: Yes Lives independently: No Household members: spouse History of recent travel: No Current gender identity: Male Data Anesthesia 03/21/22 04:09 03/21/22 04:09 Short CBC 03/21/22 Range/Units 04:09 WBC 6.5 (4.0-10.0) 10^3/uL Hgb 7.2 L (11.7-16.6) g/dL Hct 22.3 L (42.0-52.0) % MCV 99.6 H (80-94) fl Plt Count 204 (130-400) 10^3/cmm Neut % (Auto) 52.9 % Neut # (Auto) 3.42 (1.8-7.7) 10^3/uL BMP 03/21/22 04:09 Sodium 137 Potassium 4.3 Chloride 101 Carbon Dioxide 25 BUN 39 H Creatinine 0.8 Glucose 106 Calcium 8.3 L Liver Function 03/21/22 Range/Units 04:09 Total Bilirubin 0.2 (0.15-1.2) mg/dL AST 12 (0-40) U/L ALT 10 (0-41) U/L Alkaline Phosphatase 46 (40-130) U/L Albumin 3.4 L (3.5-5.2) g/dL Blood Bank 03/21/22 05:00 Blood Type A Positive Rho(D) Type Positive Antibody Screen Negative Coags 03/21/22 04:09 PT 13.80 INR 1.03 Cardiac Studies: Echocardiogram 03/16/22
--- NOTE | 2022-03-21 07:45 | PC.NURSE ---
Patient Off Floor Patient off floor to GI lab, alert/oriented x4 at time of transfer on 1.5LNC.
--- NOTE | 2022-03-21 07:53 | P.CONIM_ITS ---
Providers/Reason For Consult Consulting Physician/Specialty*: Dr. Deo Hickman, DO/General surgery Reason for Consult*: GI bleed Attending Physician: Junior Vtiale MD History of Present Illness History of Present Illness Ed Sahu is a 51 year old male who presents to the hospital with weakness and black tarry stools. He reports he has been having black tarry stools for the last few days. Has a history of alcoholism. He had a syncopal event prior to coming to the hospital. Review of Systems General: Reports: 10 or more systems reviewed and unremarkable except in HPI and below Medications/Allergies Home Medications Medication Instructions Recorded Confirmed Last Taken Type aspirin 81 mg tablet,delayed 81 mg PO DAILY #30 tabs 05/03/19 03/18/22 06/27/21 Rx release (Adult Aspirin Regimen) diclofenac sodium 50 mg 50 mg PO Q12H PRN pain 30 days #60 12/02/21 03/18/22 Unknown Rx tablet,delayed release tabs fluticasone propionate 50 1 spray intranasal Q12H #15.8 mL 12/02/21 03/18/22 Unknown Rx mcg/actuation nasal spray,suspension loratadine 10 mg tablet 10 mg PO DAILY 90 days #90 tabs 12/02/21 03/18/22 Unknown Rx fluoxetine 40 mg capsule 40 mg PO DAILY 30 days #30 caps 01/21/22 03/18/22 Unknown Rx mirtazapine 15 mg tablet 15 mg PO BEDTIME 30 days #30 tabs 01/21/22 03/18/22 Unknown Rx clonidine HCl 0.1 mg tablet 0.1 mg PO Q12H for blood pressure 03/15/22 03/18/22 Unknown History greater than 140/90 ondansetron 4 mg disintegrating 4 mg PO Q8H PRN Nausea And Vomiting 03/15/22 03/18/22 Unknown History tablet albuterol sulfate 90 mcg/actuation 1 inh inhalation Q6H PRN shortness 03/16/22 03/18/22 Unknown Rx aerosol inhaler of breath or wheezing #6.7 grams lisinopril 20 mg tablet 40 mg PO DAILY 30 days #30 tabs 03/17/22 03/18/22 Unknown Rx metoprolol succinate 50 mg 75 mg PO DAILY 30 days #30 tabs 03/17/22 03/18/22 Unknown Rx tablet,extended release 24 hr thiamine mononitrate (vit B1) 100 100 mg PO DAILY #0 tabs 03/17/22 03/18/22 Unknown Rx mg tablet (Vitamin B-1 (mononitrate)) Allergies Allergy/AdvReac Type Severity Reaction Status Date / Time acetaminophen [From [place]] Allergy Unknown ALGY-Rash Verified 03/04/22 06:59 hydrocodone [From [place]] Allergy Unknown ALGY-Rash Verified 03/04/22 06:59 Penicillins Allergy ALGY-Swell Verified 03/04/22 06:59 Lip/Tongue/Throat Current Medications Generic Name Dose Route Start Last Admin Trade Name Freq PRN Reason Stop Dose Admin Octreotide Acetate 500 mcg/ 101 mls @ 10.1 mls/hr 03/21/22 06:15 03/21/22 06:36 Sodium Chloride IV 50 mcg/hr .Q10H ROBBIN 10.1 mls/hr Administration 50 MCG/HR PFSH Acute PFSH: Medical History LEANDRO (generalized anxiety disorder) History of alcoholism Hypertension Insomnia Problems related to lack of adequate sleep Psychiatric care Seasonal allergies Surgical History H/O hernia repair Family History Family/Other Hypertension Mother Muscular dystrophy Father Myocardial infarct Social History Smoking and tobacco status: current every day smoker cigarettes Packs smoked per day: 1 Quit status (tobacco): not considering quitting Second hand smoke exposure: Yes Alcohol intake: current Alcohol intake frequency: 3 or more drinks per day Desire information about substance/drug rehabilitation?: No Caregiver/support person: Yes Lives independently: No Household members: spouse History of recent travel: No Current gender identity: Male Vitals/I&O/Wt Last Vital Signs Temp 97.8 F 03/21/22 06:52 Pulse 82 03/21/22 06:52 Resp 12 03/21/22 06:52 BP 113/86 03/21/22 06:52 Pulse Ox 97 03/21/22 06:52 O2 Del Method 03/21/22 04:52 03/20/22 03/21/22 03/21/22 22:59 06:59 14:59 Intake Total 366.667 / 366.667 Balance 366.667 / 366.667 Weight last 48 hrs Weight 201 lb 9 oz Weight 194 lb Physical Exam Narrative: General : Patient is well developed , no acute distress, oriented x3 Head : Normal cephalic, a-traumatic. Ears : Pinnae and external canal are normal. Hearing is normal. Eyes : PERRLA, Sclera and injection are normal. No conjunctival discharge. Nose : Mucous membranes are without erythema. Throat : buccal mucosa is normal, gums are without significant recession or hypertrophy. Lungs : Equal chest rise bilaterally, no use of accessory muscles, trachea is midline. Cor : Rate and rhythm are normal. Abdomen : Soft, ND, NT, no g/r/m Extremities : No edema, no cyanosis or clubbing, dorsalis pedis pulses are present bilaterally, non-tender to palpation of calves. Upper extremities are normal bilaterally. Back : non-tender to palpation, no CVA tenderness. Neuro : CN II - XII intact, Upper and lower extremities have equal and full strength Data 03/21/22 04:09 03/21/22 04:09 A&P Assessment and plan (1) GI bleed: Plan EGD The risks and benefits of the procedure, including bleeding, infection, intestinal perforation requiring surgery, missed lesion were explained to the patient. The patient is understanding of the risks and wishes to proceed. Coding Level of Care Code Acute Code for g Fwd Diagnoses GI bleed K92.2
[2022-03-21] MEDS: sodium chloride 0.9% 1,000 ML 30 ML IV (07:54)
[2022-03-21 08:04] LABS: Lipase 31 U/L (13-60)
[2022-03-21 08:07] LABS: Ferritin 103 ng/mL (30-400); Iron 155 ug/dL (59-158); Total Iron Binding Capacity 196 mcg/dl; Unsaturated Iron Binding 41 ug/dL (112-347)
[2022-03-21 08:16] LABS: Alcohol Level < 10 mg/dL (0-10)
[2022-03-21 08:21] LABS: Vitamin B12 299 pg/mL (232-1245)
--- NOTE | 2022-03-21 08:25 | PC.NURSE ---
Patient Back From GI Lab Patient brought back from GI lab via bed, alert/oriented x4 upon arrival to ICU. Transferred on 1.5LNC, no complaints of pain at this time.
[2022-03-21] MEDS: peg /e-lyte soln 4,000 mL Btl 4000 ML PO (09:36)
[2022-03-21] MEDS: pantoprazole 40 mg SDV IVP (09:47)
[2022-03-21] MEDS: midodrine 5 mg TABLET 10 MG PO ×3 (09:50→23:37)
[2022-03-21] MEDS: cetylpyridinium Lozenge 1 EACH MUCOUS MEM (09:50)
--- NOTE | 2022-03-21 10:00 | ANE.PACU2 ---
Inpatient post-anesthesia follow up: Airway intact: Yes Vital signs: Temperature 97.8 F Pulse Rate 101 Respiratory Rate 16 Blood Pressure 139/89 Pulse Oximetry 96 Oxygen Delivery Me thod [ Room Air Current Rate & Del huber] Oxygen Delivery Me thod Room Air Oxygen Flow Rate 1.5 Fraction of Inspir ed Oxygen Hydration adequate: Yes Nausea and vomiting: No Pain level: 1 Mental status: Baseline
[2022-03-21] MEDS: thiamine 100 mg Tablet PO (10:05)
[2022-03-21] MEDS: multivitamin therapeutic Tablet 1 TAB PO (10:05)
[2022-03-21] MEDS: folic acid 1 mg Tablet PO (10:05)
--- NOTE | 2022-03-21 10:55 | PM.MISC ---
Miscellaneous Note Note: Plan for colonoscopy Patient was asking for coffee Currently clear liquid diet and bowel prep Hemodynamically stable Hemoglobin 7.2 Diabetes stable Awake and alert Abdomen soft No signs of edema No signs of alcohol withdrawal Last alcoholic drink was 2 weeks ago Continue thiamine folic acid Currently on bowel prep and clear liquid diet Colonoscopy tomorrow
[2022-03-21] MEDS: cyanocobalamin 1,000 mcg/mL SDV 1000 MCG IM (11:32)
[2022-03-21 11:38] LABS: Basophils # 0.1 10^3/uL (0.0-0.1); Basophils % 0.8 %; Eosinophils # 0.1 10^3/uL (0.0-0.8); Eosinophils % 0.9 %; Hematocrit 27.5 % (42.0-52.0); Hemoglobin 8.7 g/dL (11.7-16.6); Lymphocytes # 1.3 10^3/uL (0.8-4.8); Lymphocytes % 19.9 %; Mean Corpuscular HGB Conc 31.6 g/dL (30.0-36.0); Mean Corpuscular Hemoglobin 31.3 pg (28.0-34.0); Mean Corpuscular Volume 98.9 fl (80-94); Mean Platelet Volume 10.2 fL (7.4-10.4); Monocytes # 0.6 10^3/uL (0.2-0.9); Monocytes % 8.3 %; Neutrophils % 69.8 %; Nucleated Red Blood Cells % 0 %; Platelet Count 166 10^3/cmm (130-400); Red Blood Count 2.78 10^6/uL (4.1-5.3); Red Cell Distribution Width 15.3 % (12.1-15.1); White Blood Count 6.6 10^3/uL (4.0-10.0)
[2022-03-21 11:59] LABS: Iron 231 ug/dL (59-158)
[2022-03-21 12:01] LABS: Amphetamines Screen Urine Negative (Negative); Barbiturates Screen Urine Positive (Negative); Benzodiazepines Screen Urine Positive (Negative); Cocaine Screen Urine Negative (Negative); Opiate Screen Urine Negative (Negative); PCP Screen Urine Negative (Negative); THC Screen Urine Negative (Negative)
[2022-03-21 13:02] LABS: Folate Level > 20.0 ng/mL (4.5-32.2)
[2022-03-21] MEDS: sodium chloride 0.9% (100 ml) 100 ML (14:00)
[2022-03-21 14:25] LABS: Hemoglobin 8.4 g/dL (11.7-16.6)
[2022-03-21 15:51] LABS: Unsaturated Iron Binding < 17 ug/dL (112-347)
--- NOTE | 2022-03-21 16:36 | PC.NURSE ---
New Orders Received Received verbal orders to stop Octreotide gtt and order Nicotine lozenge 4mg Q2H PRN.
[2022-03-21] MEDS: nicotine 4 mg lozenge MUCOUS MEM ×3 (16:42→23:37)
[2022-03-21 19:37] LABS: Hematocrit 25.6 % (42.0-52.0); Hemoglobin 8.5 g/dL (11.7-16.6)
[2022-03-22] VITALS (93 sets, daily range): BP systolic 87–147; BP diastolic 44–100; PULSE 65–101; RESP 11–29; TEMP 36.3–37.1; O2SAT 68–100
[2022-03-22 03:07] LABS: Basophils # 0.1 10^3/uL (0.0-0.1); Eosinophils # 0.1 10^3/uL (0.0-0.8); Eosinophils % 1.8 %; Hematocrit 24.9 % (42.0-52.0); Hemoglobin 8.1 g/dL (11.7-16.6); Lymphocytes # 1.8 10^3/uL (0.8-4.8); Lymphocytes % 29.1 %; Mean Corpuscular HGB Conc 32.5 g/dL (30.0-36.0); Mean Corpuscular Hemoglobin 31.6 pg (28.0-34.0); Mean Corpuscular Volume 97.3 fl (80-94); Mean Platelet Volume 10.4 fL (7.4-10.4); Monocytes # 0.7 10^3/uL (0.2-0.9); Monocytes % 11.4 %; Neutrophils # 3.52 10^3/uL (1.8-7.7); Neutrophils % 56.2 %; Nucleated Red Blood Cells % 0 %; Platelet Count 160 10^3/cmm (130-400); Red Blood Count 2.56 10^6/uL (4.1-5.3); Red Cell Distribution Width 15.9 % (12.1-15.1); White Blood Count 6.3 10^3/uL (4.0-10.0)
[2022-03-22 03:38] LABS: Anion Gap 11.2 (5-19); Blood Urea Nitrogen 16 mg/dL (6-20); Calcium 7.8 mg/dL (8.5-10.5); Carbon Dioxide 25 mmol/L (22-29); Chloride 103 mmol/L (98-107); Glomerular Filtration Rate 118.9 mL/min (90-130); Glucose 105 mg/dL (65-115); Osmolality Calculated 282 mOsm/kg (285-295); Potassium 4.2 mmol/L (3.5-5.1); Sodium 135 mmol/L (136-145)
[2022-03-22] MEDS: nicotine 4 mg lozenge MUCOUS MEM (08:23)
--- NOTE | 2022-03-22 09:15 | W.PM.OPSUD ---
Surgery/Procedure H&P Update DATE OF PROCEDURE: March 22, 2022 DATE H&P PERFORMED: 03/21/22 PLANNED PROCEDURE: Operation Date: 03/22/22 08:30 Proposed Procedures p Colonoscopy(Not Applicable) - Deo Hickman DO
--- NOTE | 2022-03-22 09:30 | PC.NURSE ---
Patient off Floor Patient off floor to GI lab, alert/oriented x4 at time of transfer.
--- NOTE | 2022-03-22 09:37 | ANES.PAUD2 ---
Pre-Anesthetic Update Pre-Anesthetic Assessment: Date of Surgery/Procedure: 03/22/22 Proposed Procedure: Operation Date: 03/21/22 08:00 Proposed Procedures p EGD(Not Applicable) - Deo Hickman DO Operation Date: 03/22/22 08:30 Proposed Procedures p Colonoscopy(Not Applicable) - Deo Hickman DO Changes from Pre-Anesthetic Assessment: None Last Intake: > 8hrs Labs Last 48hrs: Short CBC 03/21/22 03/21/22 03/21/22 Range/Units 04:09 11:16 13:47 WBC 6.5 6.6 (4.0-10.0) 10^3/ uL Hgb 7.2 L 8.7 L 8.4 L (11.7-16.6) g/dL Hct 22.3 L 27.5 L 26.0 L (42.0-52.0) % MCV 99.6 H 98.9 H (80-94) fl Plt Count 204 166 (130-400) 10^3/c mm Neut % (Auto) 52.9 69.8 % Neut # (Auto) 3.42 4.60 (1.8-7.7) 10^3/u L 03/21/22 03/22/22 Range/Units 19:29 02:02 WBC 6.3 (4.0-10.0) 10^3/ uL Hgb 8.5 L 8.1 L (11.7-16.6) g/dL Hct 25.6 L 24.9 L (42.0-52.0) % MCV 97.3 H (80-94) fl Plt Count 160 (130-400) 10^3/c mm Neut % (Auto) 56.2 % Neut # (Auto) 3.52 (1.8-7.7) 10^3/u L BMP 03/21/22 03/22/22 04:09 02:02 Sodium 137 135 L Potassium 4.3 4.2 Chloride 101 103 Carbon Dioxide 25 25 BUN 39 H 16 Creatinine 0.8 0.7 Glucose 106 105 Calcium 8.3 L 7.8 L Liver Function 03/21/22 Range/Units 04:09 Total Bilirubin 0.2 (0.15-1.2) mg/dL AST 12 (0-40) U/L ALT 10 (0-41) U/L Alkaline Phosphata se 46 (40-130) U/L Albumin 3.4 L (3.5-5.2) g/dL Blood Bank 03/21/22 05:00 Blood Type A Positive Rho(D) Type Positive Antibody Screen Negative Coags 03/21/22 04:09 PT 13.80 INR 1.03 Vitals: Temperature 97.8 F 03/22/22 08:15 Temperature Source Axillary 03/22/22 08:15 Pulse Rate 101 H 03/22/22 08:58 Pulse Rhythm 03/21/22 18:00 Pulse Strength 3+ Normal 03/22/22 08:00 Respiratory Rate 16 03/22/22 08:15 Respiratory Effort Non-Labored 03/22/22 08:00 Respiratory Depth Normal 03/22/22 08:00 Respiratory Patter n 03/21/22 15:53 Blood Pressure 139/89 03/22/22 08:15 Blood Pressure Ira n 105 03/22/22 08:15 Blood Pressure Pos ition Semi Fowlers 03/21/22 15:53 Pulse Oximetry 96 03/22/22 08:58 Oxygen Delivery Me thod 03/22/22 08:58 Oxygen Flow Rate 1.5 03/21/22 07:35 Sepsis Recent Feve r Within 48 Hours No 03/21/22 04:52 Sepsis New/Unexpla ined Change in Men yao Status No 03/21/22 04:52 Exam: Pre-Anes Outpt Exam: alert, oriented x 3, clear to auscultation bilaterally and regular rate & rhythm Cardiac Studies: Echocardiogram 03/16/22
[2022-03-22] MEDS: sodium chloride 0.9% 1,000 ML 30 ML IV (09:43)
--- NOTE | 2022-03-22 10:15 | PC.NURSE ---
Patient Back from GI Lab Patient brought back from GI lab, alert/oriented x4. No complaints of pain at this time.
[2022-03-22] MEDS: folic acid 1 mg Tablet PO (10:44)
[2022-03-22] MEDS: multivitamin therapeutic Tablet 1 TAB PO (10:44)
[2022-03-22] MEDS: cetylpyridinium Lozenge 1 EACH MUCOUS MEM (10:44)
[2022-03-22] MEDS: midodrine 5 mg TABLET 10 MG PO (10:44)
[2022-03-22] MEDS: thiamine 100 mg Tablet PO (10:44)
[2022-03-22] MEDS: pantoprazole 40 mg SDV IVP (10:44)
[2022-03-22] MEDS: cyanocobalamin 1,000 mcg/mL SDV 1000 MCG IM (10:45)
--- NOTE | 2022-03-22 10:56 | P.DS_ITS ---
Discharge Providers Date of Admission: 03/21/22 06:13 Date of Discharge: March 22, 2022 Attending Provider at Admission: Junior Vitale MD Attending Provider at Discharge: Berlin Murdock MD Diagnoses at Discharge Discharge Diagnosis (1) GI bleed: Status: Acute Reason for Visit Reason for Visit: GI bleed Hospital Course Hospital Course 51-year-old male who was admitted for management of hematochezia and melanotic stools, patient required 2 unit PRBC, EGD unremarkable, colonoscopy showed diverticulosis without active bleeding. He was also diagnosed with low vitamin B12. No signs of alcohol gastritis or variceal bleed. Physical Exam Narrative: Awake and alert Nonfocal neuro exam S1, S2 Abdomen soft Pleasant and cooperative Discharge Data Studies Completed and Pending Completed Studies During Hospitalization Category Date Time Status XR chest 1V portable [id number] Stat Exams 03/21/22 04:57 Completed Radiology Impressions Chest X-Ray 03/21/22 04:57 IMPRESSION: No acute findings. Laboratory Results WBC 6.3 10^3/uL (4.0-10.0) 03/22/22 02:02 RBC 2.56 10^6/uL (4.1-5.3) L 03/22/22 02:02 Hgb 8.1 g/dL (11.7-16.6) L 03/22/22 02:02 Hct 24.9 % (42.0-52.0) L 03/22/22 02:02 MCV 97.3 fl (80-94) H 03/22/22 02:02 MCH 31.6 pg (28.0-34.0) 03/22/22 02:02 MCHC 32.5 g/dL (30.0-36.0) 03/22/22 02:02 RDW 15.9 % (12.1-15.1) H 03/22/22 02:02 Plt Count 160 10^3/cmm (130-400) 03/22/22 02:02 MPV 10.4 fL (7.4-10.4) 03/22/22 02:02 Neut % (Auto) 56.2 % 03/22/22 02:02 Lymph % (Auto) 29.1 % 03/22/22 02:02 [place] % (Auto) 11.4 % 03/22/22 02:02 Eos % (Auto) 1.8 % 03/22/22 02:02 Baso % (Auto) 1.0 % 03/22/22 02:02 Neut # (Auto) 3.52 10^3/uL (1.8-7.7) 03/22/22 02:02 Lymph # (Auto) 1.8 10^3/uL (0.8-4.8) 03/22/22 02:02 [place] # (Auto) 0.7 10^3/uL (0.2-0.9) 03/22/22 02:02 Eos # (Auto) 0.1 10^3/uL (0.0-0.8) 03/22/22 02:02 Baso # (Auto) 0.1 10^3/uL (0.0-0.1) 03/22/22 02:02 Nucleated RBC % (auto) 0 % 03/22/22 02:02 Nucleated RBCs # 0.0 /100WBC 03/22/22 02:02 PT 13.80 SECONDS (12.1-14.9) 03/21/22 04:09 INR 1.03 (0.8-1.2) 03/21/22 04:09 Sodium 135 mmol/L (136-145) L 03/22/22 02:02 Potassium 4.2 mmol/L (3.5-5.1) 03/22/22 02:02 Chloride 103 mmol/L (98-107) 03/22/22 02:02 Carbon Dioxide 25 mmol/L (22-29) 03/22/22 02:02 Anion Gap 11.2 (5-19) 03/22/22 02:02 BUN 16 mg/dL (6-20) 03/22/22 02:02 Creatinine 0.7 mg/dL (0.7-1.2) 03/22/22 02:02 GFR Calculation 118.9 mL/min (90-130) 03/22/22 02:02 Glucose 105 mg/dL (65-115) 03/22/22 02:02 Calculated Osmolality 282 mOsm/kg (285-295) L 03/22/22 02:02 Lactate 1.2 mmol/L (0.5-2.2) 03/21/22 05:00 Calcium 7.8 mg/dL (8.5-10.5) L 03/22/22 02:02 Magnesium 2.1 mg/dL (1.7-2.3) 03/21/22 04:09 Iron 231 ug/dL (59-158) H 03/21/22 11:16 TIBC 247.55502 mcg/dl 03/21/22 11:16 % Saturation 93.0 % (20-50) H 03/21/22 11:16 Unsat Iron Binding < 17 ug/dL (112-347) L 03/21/22 11:16 Ferritin 103 ng/mL (30-400) 03/21/22 04:09 Total Bilirubin 0.2 mg/dL (0.15-1.2) 03/21/22 04:09 AST 12 U/L (0-40) 03/21/22 04:09 ALT 10 U/L (0-41) 03/21/22 04:09 Alkaline Phosphatase 46 U/L (40-130) 03/21/22 04:09 Total Protein 5.6 g/dL (6.6-8.7) L 03/21/22 04:09 Albumin 3.4 g/dL (3.5-5.2) L 03/21/22 04:09 Globulin 2.2 g/dL (1.3-4.6) 03/21/22 04:09 Lipase 31 U/L (13-60) 03/21/22 04:09 Vitamin B12 299 pg/mL (232-1245) 03/21/22 04:09 Folate > 20.0 ng/mL (4.5-32.2) 03/21/22 11:16 TSH 3.56 uIU/mL (0.27-4.20) 03/21/22 04:09 Urine Opiates Screen Negative ng/mL (Negative) 03/21/22 11:44 Ur Barbiturates Screen Positive ng/mL (Negative) H 03/21/22 11:44 Ur Phencyclidine Scrn Negative ng/mL (Negative) 03/21/22 11:44 Ur Amphetamines Screen Negative ng/mL (Negative) 03/21/22 11:44 U Benzodiazepines Scrn Positive ng/mL (Negative) H 03/21/22 11:44 Urine Cocaine Screen Negative ng/mL (Negative) 03/21/22 11:44 U Marijuana (THC) Screen Negative ng/mL (Negative) 03/21/22 11:44 Ethyl Alcohol < 10 mg/dL (0-10) 03/21/22 04:09 Blood Type A Positive 03/21/22 05:00 Rho(D) Type Positive 03/21/22 05:00 Antibody Screen Negative 03/21/22 05:00 Crossmatch See Detail 03/21/22 05:00 Vitals Last Vital Signs Temp 97.8 F 03/22/22 08:15 Pulse 87 03/22/22 10:30 Resp 17 03/22/22 10:30 BP 139/89 03/22/22 09:00 Pulse Ox 68 L 03/22/22 10:21 O2 Del Method 03/22/22 08:58 O2 Flow Rate 1.5 03/21/22 07:35 Discharge Plan Discharge Patient Disposition: Home Condition: Stable Prescriptions: New Vitamin B-1 (mononitrate) 100 mg Tablet 100 mg PO DAILY Qty: 30 0RF cyanocobalamin (vitamin B-12) 100 mcg tablet 100 mcg PO DAILY Qty: 360 0RF Senna-S 8.6-50 mg tablet 1 tab-cap PO DAILY Qty: 10 0RF Continued fluticasone propionate 50 mcg/actuation spray,suspension 1 spray intranasal Q12H Qty: 15.8 5RF Rx Instructions: administer into each nostril loratadine 10 mg tablet 10 mg PO DAILY 90 Days Qty: 90 3RF fluoxetine 40 mg capsule 40 mg PO DAILY 30 Days Qty: 30 3RF mirtazapine 15 mg tablet 15 mg PO BEDTIME 30 Days Qty: 30 3RF clonidine HCl 0.1 mg tablet 0.1 mg PO Q12H albuterol sulfate 90 mcg/actuation HFA aerosol inhaler 1 inh inhalation Q6H PRN (Reason: shortness of breath or wheezing) Qty: 6.7 0RF metoprolol succinate 50 mg Tablet Extended Release 24 Hr 50 mg PO DAILY lisinopril 30 mg Tablet 30 mg PO DAILY Discontinued diclofenac sodium 50 mg tablet,delayed release (DR/EC) 50 mg PO Q12H PRN (Reason: pain) 30 Days Qty: 60 5RF Rx Instructions: WITH FOOD aspirin [Adult Aspirin Regimen] 81 mg tablet,delayed release (DR/EC) 81 mg PO DAILY Qty: 30 0RF Discharge Orders: Discharge Order (Routine); Ordered 03/22/22 Ordered By: Berlin Murdock Discharge Diet: Cardiac Discharge Activity: Increase activity as tolerated Patient Instructions: Thiamine (By mouth) ([facility] Vitamin B1, Nature's..., Vitamin B-12 (By mouth), Docusate (Into the rectum), Heart Healthy Diet (DC), GI Discharge Instructions, Opioid Safety Discharge Attestations Time Spent in Discharge Care*: less than 30 min Quality Metrics Clinical Quality Measures [ No reported AMI, CVA or VTE this stay] Coding Level of Care Code Acute Chg FW DC note Diagnoses GI bleed K92.2
--- NOTE | 2022-03-22 11:54 | PC.NURSE ---
Patient Discharged Patient discharged home and is alert/oriented x4 at this time. All belongings sent with patient upon discharge. Discharge instructions reviewed with patient and packet sent home.
== END 2022-03-22 11:47 | disposition home or self-care (01) | DRG 378 ==
LOC: ER 05:52 → ICU 06:14
PROVIDERS: Surgery; Admitting Provider Family Medicine; Emergency Provider Emergency Medicine; Visit Provider Internal Medicine
PROC: 0DJ08ZZ Inspection of Upper Intestinal Tract, Via Natural or Artificial Opening Endoscopic (ICD-10-PCS; CPT 43235; principal; 2022-03-21 08:00)
PROC: 0DJD8ZZ Inspection of Lower Intestinal Tract, Via Natural or Artificial Opening Endoscopic (ICD-10-PCS; CPT 45378; principal; 2022-03-22 08:30)
DX: K57.31 Diverticulosis of large intestine without perforation or abscess with bleeding (principal); F10.288 Alcohol dependence with other alcohol-induced disorder; Z79.51 Long term (current) use of inhaled steroids; F10.282 Alcohol dependence with alcohol-induced sleep disorder; J44.9 Chronic obstructive pulmonary disease, unspecified; F41.1 Generalized anxiety disorder; I10 Essential (primary) hypertension; Z88.5 Allergy status to narcotic agent; Z88.0 Allergy status to penicillin; F17.210 Nicotine dependence, cigarettes, uncomplicated; D64.9 Anemia, unspecified; I95.9 Hypotension, unspecified
CPT/HCPCS: 36415; 36430; 43235; 45378; 71045; 80048; 80053; 80306; 80307; 82607; 82728; 82746; 83540; 83550; 83605; 83690; 83735; 84443; 85014; 85018; 85025; 85610; 86850; 86900; 86920; 93005; 94664; 96365; 96367; 96372; 96375; 99285; C9113; J2354; J2370; J2405; J2704; J3420; J7030; P9016

== ENCOUNTER 2022-03-28 14:58 | Emergency (ER) | payer MEDICAID, SELFPAY ==
[2022-03-28] VITALS (10 sets, daily range): BP systolic 123–160; BP diastolic 77–110; PULSE 84–99; RESP 14–18; TEMP -13.3–37.2; O2SAT 93–100
[2022-03-28 16:49] LABS: Basophils # 0.1 10^3/uL (0.0-0.1); Basophils % 0.7 %; Eosinophils # 0.1 10^3/uL (0.0-0.8); Lymphocytes # 1.6 10^3/uL (0.8-4.8); Lymphocytes % 23.1 %; Mean Corpuscular HGB Conc 31.1 g/dL (30.0-36.0); Mean Corpuscular Hemoglobin 32.7 pg (28.0-34.0); Mean Corpuscular Volume 105.1 fl (80-94); Mean Platelet Volume 9.1 fL (7.4-10.4); Monocytes # 0.5 10^3/uL (0.2-0.9); Monocytes % 6.7 %; Neutrophils % 68.1 %; Nucleated Red Blood Cells % 0 %; Platelet Count 305 10^3/cmm (130-400); Red Blood Count 1.56 10^6/uL (4.1-5.3); Red Cell Distribution Width 17.9 % (12.1-15.1); White Blood Count 7.1 10^3/uL (4.0-10.0)
[2022-03-28 16:52] LABS: Hematocrit 16.4 % (42.0-52.0); Hemoglobin 5.1 g/dL (11.7-16.6)
[2022-03-28 17:04] LABS: Alanine Aminotransferase 11 U/L (0-41); Albumin Level 3.6 g/dL (3.5-5.2); Alkaline Phosphatase 54 U/L (40-130); Anion Gap 13.1 (5-19); Aspartate Amino Transferase 14 U/L (0-40); Blood Urea Nitrogen 11 mg/dL (6-20); Calcium 8.2 mg/dL (8.5-10.5); Carbon Dioxide 23 mmol/L (22-29); Chloride 101 mmol/L (98-107); Globulin 2.2 g/dL (1.3-4.6); Glomerular Filtration Rate 101.9 mL/min (90-130); Glucose 102 mg/dL (65-115); Osmolality Calculated 276 mOsm/kg (285-295); Potassium 4.1 mmol/L (3.5-5.1); Sodium 133 mmol/L (136-145); Total Bilirubin 0.2 mg/dL (0.15-1.2); Total Protein 5.8 g/dL (6.6-8.7)
--- NOTE | 2022-03-28 18:13 | ED_ITS ---
HPI - GI Bleed General: Chief complaint: GI Bleed Stated complaint: sent for low hemoglobin Time Seen by Provider: 03/28/22 18:01 History of Present Illness: 81-year-old male here had trouble recently with GI bleeding/melena. He was seen earlier today and found to have a hemoglobin of 5. He has continued to have melena. He has not passed clots. No emesis of any kind. Mild generalized belly pain. No fever. Colonoscopy done here and EGD done here on 03/21 did not reveal a cause. His INR was normal at that point. Onset (ago): day(s) Pain Consistency: intermittent Severity: mild Relieving factors: none Associated symptoms: Reports abdominal pain, headache(s), nausea and weakness (Generalized); Denies chills, fever(s), other bleeding or vomiting Review of Systems Const: Denies: fever(s) or chills Card: Reports: swelling of feet/ankles; Denies: chest pain Resp: Reports: dyspnea; Denies: non-productive cough GI: Reports: abdominal pain and nausea; Denies: vomiting Neuro: Reports: headache(s) PFSH ED PFSH: Medical History Acute anemia Alcohol use disorder, severe, dependence LEANDRO (generalized anxiety disorder) GI bleed Goals of care, counseling/discussion Hemorrhagic shock History of alcoholism Hypertension Insomnia Problems related to lack of adequate sleep Psychiatric care Seasonal allergies Upper gastrointestinal hemorrhage Surgical History H/O hernia repair Family History Family/Other Hypertension Mother Muscular dystrophy Father Myocardial infarct Social History Smoking and tobacco status: current every day smoker cigarettes Packs smoked per day: 1 Quit status (tobacco): not considering quitting Second hand smoke exposure: Yes Alcohol intake: current Alcohol intake frequency: 3 or more drinks per day Desire information about substance/drug rehabilitation?: No Caregiver/support person: Yes Lives independently: No Household members: spouse History of recent travel: No Current gender identity: Male Physical Exam Const: COMMON NORMALS: no acute distress GENERAL APPEARANCE: cooperative and ill appearing HENMT: COMMON NORMALS: normocephalic and Normal external nose present HEAD & SCALP: normocephalic FACE & SINUS: normal facial exam and face symmetric NOSE: Normal external nose present Eye: COMMON NORMALS: Equal, round and reactive pupils present and EOMs intact bilaterally PUPIL: Yes Equal, round and reactive pupils present Neck/C-Spine: GENERAL: Yes trachea midline Chest: CHEST: Yes Symmetrical chest wall rise Resp: COMMON NORMALS: normal respiratory effort, No retractions, No use of accessory muscles and clear to auscultation bilaterally AUSCULTATION: clear to auscultation bilaterally Cardio: COMMON NORMALS: regular rate and regular rhythm RATE: regular rate RHYTHM: regular rhythm GI: COMMON NORMALS: Normal to inspection, nondistended, normoactive bowel sounds present PALPATION: Yes Tenderness to palpation present (GI) (Mild) and No Guarding due to palpation present (GI) Extremity: COMMON NORMALS: no pedal edema Neuro: THOMAS COMA SCALE: document GCS findings [place] coma scale eye opening: Spontaneous [place] coma scale verbal response: Orientated [place] coma scale motor response: Obey commands Thomas coma scale total score: 15 SENSORY EXAM: Yes extremities (intact) Psych: COMMON NORMALS: speech normal SPEECH: Yes normal speech Skin: COMMON NORMALS: no rashes or lesions noted GENERAL SKIN EXAM: no rashes or lesions noted Course Vital Signs: Vital signs: Vital Signs Temperature 98.9 F 03/28/22 21:16 Pulse Rate 89 03/28/22 21:16 Respiratory Rate 18 03/28/22 21:16 Blood Pressure 131/84 03/28/22 21:16 Pulse Oximetry 95 03/28/22 21:16 Oxygen Delivery Me thod 03/28/22 15:11 MDM - GI Bleed Medical Decision Making 51-year-old male with a history of melena that continues. EGD colonoscopy 6 days ago was negative. No emesis. No history of varices despite alcohol use. His INR was normal a few days ago. We will not reimage, because he underwent EGD and colonoscopy a few days ago. He is nontender. He has 2 units crossmatched. We will begin transfusion here. Patient is getting blood. He is awake and talking. Blood pressure 129/69, saturations 100%, heart rate 80. We do not have gastroenterology or surgery available at this point. Spoke with [facility]. They do have such services. They are willing to take an transfer. Lab Data 03/28/22 16:38 03/28/22 16:38 Laboratory Results WBC 7.1 10^3/uL (4.0-10.0) 03/28/22 16:38 RBC 1.56 10^6/uL (4.1-5.3) L 03/28/22 16:38 Hgb 5.1 g/dL (11.7-16.6) L* 03/28/22 16:38 Hct 16.4 % (42.0-52.0) L* 03/28/22 16:38 MCV 105.1 fl (80-94) H 03/28/22 16:38 MCH 32.7 pg (28.0-34.0) 03/28/22 16:38 MCHC 31.1 g/dL (30.0-36.0) 03/28/22 16:38 RDW 17.9 % (12.1-15.1) H 03/28/22 16:38 Plt Count 305 10^3/cmm (130-400) 03/28/22 16:38 MPV 9.1 fL (7.4-10.4) 03/28/22 16:38 Neut % (Auto) 68.1 % 03/28/22 16:38 Lymph % (Auto) 23.1 % 03/28/22 16:38 [place] % (Auto) 6.7 % 03/28/22 16:38 Eos % (Auto) 1.0 % 03/28/22 16:38 Baso % (Auto) 0.7 % 03/28/22 16:38 Neut # (Auto) 4.80 10^3/uL (1.8-7.7) 03/28/22 16:38 Lymph # (Auto) 1.6 10^3/uL (0.8-4.8) 03/28/22 16:38 [place] # (Auto) 0.5 10^3/uL (0.2-0.9) 03/28/22 16:38 Eos # (Auto) 0.1 10^3/uL (0.0-0.8) 03/28/22 16:38 Baso # (Auto) 0.1 10^3/uL (0.0-0.1) 03/28/22 16:38 Nucleated RBC % (auto) 0 % 03/28/22 16:38 Nucleated RBCs # 0.0 /100WBC 03/28/22 16:38 PT 12.70 SECONDS (12.1-14.9) 03/28/22 16:34 INR 0.92 (0.8-1.2) 03/28/22 16:34 Sodium 133 mmol/L (136-145) L 03/28/22 16:38 Potassium 4.1 mmol/L (3.5-5.1) 03/28/22 16:38 Chloride 101 mmol/L (98-107) 03/28/22 16:38 Carbon Dioxide 23 mmol/L (22-29) 03/28/22 16:38 Anion Gap 13.1 (5-19) 03/28/22 16:38 BUN 11 mg/dL (6-20) 03/28/22 16:38 Creatinine 0.8 mg/dL (0.7-1.2) 03/28/22 16:38 GFR Calculation 101.9 mL/min (90-130) 03/28/22 16:38 Glucose 102 mg/dL (65-115) 03/28/22 16:38 Calculated Osmolality 276 mOsm/kg (285-295) L 03/28/22 16:38 Calcium 8.2 mg/dL (8.5-10.5) L 03/28/22 16:38 Total Bilirubin 0.2 mg/dL (0.15-1.2) 03/28/22 16:38 AST 14 U/L (0-40) 03/28/22 16:38 ALT 11 U/L (0-41) 03/28/22 16:38 Alkaline Phosphatase 54 U/L (40-130) 03/28/22 16:38 Total Protein 5.8 g/dL (6.6-8.7) L 03/28/22 16:38 Albumin 3.6 g/dL (3.5-5.2) 03/28/22 16:38 Globulin 2.2 g/dL (1.3-4.6) 03/28/22 16:38 Ethyl Alcohol < 10 mg/dL (0-10) 03/28/22 16:34 Blood Type A Positive 01/21/23 16:38 Rho(D) Type Positive 03/28/22 16:38 Antibody Screen Negative 03/28/22 16:38 Crossmatch See Detail 03/28/22 16:38 Critical Care Time Critical Care Time: Critical Care Time: Yes Total Critical Care Time: 35 Attestation: This case had a high probability of a clinically significant, sudden, or life threatening deterioration of this patient's condition which required my full and direct attention, intervention and personal management. Time is independent of any procedures performed Discharge Plan Discharge Patient Disposition: Xfer Short-Term Hosp Clinical Impression: Acute GI bleeding Condition: Fair Coding Level of Care Code ED Senior Auditor for Chg Fwd Exam Comprehensive
[2022-03-28 18:26] LABS: INR 0.92 (0.8-1.2)
[2022-03-28 18:39] LABS: Alcohol Level < 10 mg/dL (0-10)
--- NOTE | 2022-03-28 20:38 | PC.NURSE ---
Report called to Dorothy Sharp RN - all questions answered.
--- NOTE | 2022-03-28 21:17 | PC.NURSE ---
Report given to Ran Ennis - PRBC infusing at time of transport. All questions answered, pt stable but serious condition.
== END 2022-03-28 21:18 | disposition short-term general hospital (02) ==
PROVIDERS: Emergency Medicine; Emergency Provider Emergency Medicine
DX: K92.2 Gastrointestinal hemorrhage, unspecified (principal); I10 Essential (primary) hypertension; F17.210 Nicotine dependence, cigarettes, uncomplicated
CPT/HCPCS: 36415; 36430; 80053; 80307; 85025; 85610; 86850; 86900; 86920; 99284; P9040